=== PATIENT | female | born 2000 | race Caucasian/White ===

== ENCOUNTER 2024-08-30 10:23 | Outpatient (RCR) | payer OTHER, SELFPAY ==
[2024-08-30 11:47] LABS: Basophils Percent Auto 0.2 % (0.2-2.0); Eosinophils Absolute Auto 0.1 10^3/uL (0.0-0.7); Eosinophils Percent Auto 0.6 % (0.9-7.0); Hematocrit 35.5 % (36.0-48.0); Hemoglobin 12.1 g/dL (12.0-16.0); Immature Granulocytes Abs Auto 0.09 10^3/uL (0.00-0.03); Lymphocytes Absolute Auto 1.1 10^3/uL (1.2-3.8); Lymphocytes Percent Auto 12.2 % (20.5-60.0); Mean Corpuscular HGB Conc 34.1 g/dL (29.9-35.2); Mean Corpuscular Hemoglobin 28.2 pg (26.7-34.0); Mean Corpuscular Volume 82.8 fL (81.0-99.0); Mean Platelet Volume 9.8 fL (9.5-13.5); Monocytes Absolute Auto 0.5 10^3/uL (0.3-0.8); Monocytes Percent Auto 5.4 % (1.7-12.0); Neutrophils Absolute Auto 7.1 10^3/uL (1.4-6.5); Neutrophils Percent Auto 80.6 % (43.0-75.0); Platelet Count 292 10^3/uL (150-450); Red Blood Count 4.29 10^6/uL (4.20-5.40); Red Cell Distribution Width 13.2 % (11.0-15.0); White Blood Count 8.9 10^3/uL (4.0-11.0)
[2024-08-30 11:50] VITALS: BP 143/78; PULSE 95; TEMP 36.5; O2SAT 98
[2024-08-30] MEDS: RHO(D) IMMUNE GLOBULIN 1,500 UNIT SYRINGE 1500 UNIT IM (12:14)
[2024-08-30 12:44] LABS: Glucose 1 Hour 129 mg/dL (<130)
[2024-08-31 05:08] LABS: HCV Ab Non Reactive (Non Reactive)
== END 2024-09-07 09:07 | disposition home or self-care (01) ==
LOC: INF 10:23
PROVIDERS: PCP Obstetrics & Gynecology; Visit Provider Obstetrics & Gynecology
DX: O26.893 Other specified pregnancy related conditions, third trimester (principal); Z67.91 Unspecified blood type, Rh negative; Z3A.00 Weeks of gestation of pregnancy not specified
CPT/HCPCS: 36415; 82950; 85025; 86803; 86850; 86900; 86901; 96372; J2791

== ENCOUNTER 2024-10-02 08:34 | Outpatient (OUT) | payer OTHER, SELFPAY ==
--- NOTE | 2024-10-02 08:35 | US_ITS ---
[address] [address] Patient Name: ARLINE MONSIVAIS MRN: [id number] date: 2000 Sex: F Assigned Patient Location: [facility] Current Patient Location: [facility] Accession/Order Number: [id number] Exam Date: 10/02/2024 08:40 Report Date: 10/02/2024 09:33 At the request of: FLORA PERDOMO Procedure: US OB growth EXAMINATION: US OB growth HISTORY: Excessive growth O36.60X0 COMPARISON: No relevant comparison available. FINDINGS: Heart Rate: 129 bpm Amniotic Fluid Volume: 16.0 cm, largest fluid pocket 4.4 cm Number: 1 Position: Cephalic presentation, longitudinal lie BIOMETRY: BPD: 8.28 cm; 33 weeks 2 days; 56.90 % HC: 29.66 cm; 32 weeks 6 days; 14.10 % AC: 29.11 cm; 33 weeks 1 day; 58.40 % FL: 6.37 cm; 32 weeks 6 days; 39.60 % EFW: 2121.16 g; 46.10 %, 4 lbs. 10 oz. FL/AC: 21.88 FL/BPD: 76.93 HC/AC: 1.02 GESTATIONAL AGE: Age by EDC: 32 weeks 6 days LASHAE by EDC: 2024-11-21 Age by US: 33 weeks 0 days LASHAE by US: 2024-11-20 US/US OB growth IMPRESSION: Normal interval growth Electronically authenticated by: ALEX KAUFFMAN Date: 10/02/2024 09:33
--- OUTSIDE RECORDS SUMMARY | 2024-10-02 08:52 | XMS_ITS | CCD ---
Author Organization [facility] Care Team Providers Care Management Trainee Marketing Name Role Phone Kang Alfaro MD Primary Care Provider [phone] Kang Alfaro MD Unavailable UNALLOCATED, NOMS PROVIDER Referring Unava ilable CARLA PNENINGTON Attending Unavailable CARLA PENNINGTON P Referring Unavailable ADITI PENOLA P Referring Unavailable TERRENCE PENNINGTONOLA P Attending Unavailable TERRENCE PENNINGTONOLA P Referring Unavailable FLORA MERCADO Attending Unavailable ROGELIOFLORA DAVALOS Attending Unavailable Medications Current Medications Medication Drug Class(es) Dates Sig (Normalized) Sig (Original) MV-Min-Fe Fum-FA-DHA ( 1 PO) (2 sources) MV-Min- Fe Fum-FA-DHA ( 1 PO) Take 1 tablet by mouth Daily Active Problems Problem Classification Problem Date Documented Da te Episodic/Chronic Other complications of (2 sources) Excessive growth affecting management of mother; Translations: [Maternal care for excessive growth, unspecified trimester, not applicable or unspecified] 09-11-2024 Episodic Other and delivery including normal (6 sources) Second trimester ; Translations: [Encounter for supervision of normal , unspecified, second trimester] Onset: 09-11-2024 08-07-2024 Episodic Other screening for suspected conditions (not mental disorders or infectious disease) (1 source) Patient encounter status; Translations: [Encounter for screening for diabetes mellitus] 08-07-2024 Episodic Residual codes; unclassified (1 source) Gestation period, 24 weeks; Translations: [24 weeks gestation of ] 08-07-2024 Episodic Residual codes; unclassified (4 sources) Gestation period, 29 weeks; Translations: [29 weeks gestation of ] Onset: 09-11-2024 09-11-2024 Episodic Unclassified (6 sources) OB Reminders Onset: 04-06-2024 04-06-2024 Results Test Name Value Interpretation Reference Range Facility Urinalysis macro (dipstick) panel (U)on 09-11-2024 Bilirubin, UA Negative Negative - 4(70) +++ mg/dL [facility] Blood, UA Negative Negative - 50 Cameron/mcL [facility] Clarity, UA Clear [facility] re Color, UA Yellow [facility] e Glucose, UA Negative Negative - 1999(110) ++++ mg/dL [facility] Interpretation and review of laboratory results Normal [facility] re Ketones, UA Negative Negative - 160(16) ++++ mg/dL [facility] Leukocytes, UA Negative Negative - 500+++ Cynthia/mcL [facility] Nitrite, UA Negative Negative - Positive [facility] pH, UA 7 5 - 9 [facility] Protein, UA Negative Negative - 1999(20) ++++ mg/dL [facility] Spec Grav, UA 1.02 1 - 1.03 [facility] Urobilinogen, UA 0.2 0.2 - 12 mg/dL [facility] e HCV ANTIBODY RFX TO QUANT PC Hieu 08-31-2024 HCV AB Non-Reactive Non Reactive [facility] hcare INTERPRETATION: Comment . [facility] thcare Comment on above: Not infected with HC V unless early or acute infection is suspected (which may be delayed in an immunocompromised individual), or other evidence exists to indicate HCV infection. Performed at: - Lab[address] [id number] Physical Education Department Chair: Tank Ureña PhD, Phone: [phone] [facility] e ALL CBC WITH AUTO DIFFon BASOPHILS ABSOLUTE AUTO 0 [facility] Basophils/100 WBC (Bld) 0.2 % 0.2 - 2.0 % [facility] Eosinophils/100 WBC (Bld) 0.6 % Low 0.9 - 7.0 % [facility] Erythrocyte distribution width (RBC) [Ratio] 13.2 % 11.0 - 15.0 % [facility] Hematocrit (Bld) [Volume fraction] 35.5 % Low 36.0 - 48.0 % [facility] e Hemoglobin (Bld) [Mass/Vol] 12.1 g/dL 12.0 - 16.0 g/dL [facility] IMMATURE GRANULOCYTES ABS AUTO 0.09 High [facility] Immature granulocytes/100 WBC (Bld) 1 % High 0.0 - 0.5 % [facility] Interpretation and review of laboratory results Abnormal [facility] re LYMPHOCYTES ABSOLUTE AUTO 1.1 Low [facility] Lymphocytes/100 WBC (Bld) 12.2 % Low 20.5 - 60.0 % [facility] MCH (RBC) [Entitic mass] 28.2 pg 26.7 - 34.0 pg [facility] MCHC (RBC) [Mass/Vol] 34.1 g/dL 29.9 - 35.2 g/dL [facility] MCV (RBC) [Entitic vol] 82.8 fL 81.0 - 99.0 fL [facility] MONOCYTES ABSOLUTE AUTO 0.5 [facility] Monocytes/100 WBC (Bld) 5.4 % 1.7 - 12.0 % [facility] NEUTROPHILS ABSOLUTE AUTO 7.1 High [facility] Neutrophils/100 WBC (Bld) 80.6 % High 43.0 - 75.0 % [facility] Platelet mean volume (Bld) [Entitic vol] 9.8 fL 9.5 - 13.5 fL [facility] TBH EO # 0.1 [facility] TB PLT 292 [facility] e TB RBC 4.29 [facility] TBH WBC 8.9 [facility] e GLUCOSE 1 HOURon 08-30-2024 Glucose [Mass/Vol] 129 mg/dL NINF - 13 0 mg/dL [facility] Urinalysis macro (dipstick) panel (U)on 08-07-2024 Bilirubin, UA Negative Negative - 4(70) +++ mg/dL [facility] Blood, UA Negative Negative - 50 Cameron/mcL [facility] Clarity, UA Clear [facility], UA Yellow [facility] Glucose, UA Negative Negative - 2000(110) ++++ mg/dL [facility] Interpretation and review of laboratory results Normal [facility] re Ketones, UA Negative Negative - 160(16) ++++ mg/dL [facility] Leukocytes, UA Negative Negative - 500+++ Cynthia/mcL [facility] Nitrite, UA Negative Negative - Positive [facility] pH, UA 7 5 - 9 [facility] Protein, UA Negative Negative - 1999(20) ++++ mg/dL [facility] Spec Grav, UA 1.015 1 - 1.[address] [facility] care Urobilinogen, UA 0.2 0.2 - 12 mg/dL [facility] Coding Summary.on 03-07-2020 Coding Summary. CODING DATE: 03/07/2020 FINAL [facility] STATUS: Home (Routine DC) PAYOR: Medicaid EAPG DESCRIPTION 0471 PLAIN FILM 0496 MINOR PHARMACOTHERAPY ADMIT DX: REASON FOR VISIT DX: S91.115A Laceration without foreign body of left lesser toe(s) without damage to nail, initial encounter FINAL DX: PRINCIPAL: S91.115A Laceration without foreign body of left lesser toe(s) without damage to nail, initial encounter SECONDARY: W25.XXXA Contact with sharp glass, initial encounter PYMT PROC EAPG STAT DESCRIPTION DOCTOR NAME DATE NOTE: The code number assigned matches the documented diagnosis and / or procedure in the patient's chart. However, the narrative phrase printed from the coding software may appear abbreviated, or result in slightly different terminology. Coded By: Cheryl Glynn Date Saved: 03/07/2020 08:16 am [facility] Consent for Treatmenton 02-16 Consent for Treatment [id number] 0CD:127 Normal [facility] Discharge Instructionson Discharge Instructions [id number]:127 Normal [facility] ED Clinical Summaryon 2019 ED Clinical Summary [address] [address] ED Clinical Summary Person Information Name: ARLINE VASQUEZ [place] Age: 19 Years : 2000 Sex: Female Language: Singaporean PCP: Hailey CAR CNP Marital Status: Single Phone: [phone] Visit Id: Visit Reason: Foot laceration; FOOT LACERATION Speciality: Acuity: 4 Enc Type: Emergency Med Service: Emergency Arrival: 03/06/2020 11:49:56 Discharge: 03/06/2020 13:34:35 LOS: 000 01:45 Checkin: 03/06/2020 11:49:56 Checkout: 03/06/2020 13:34:35 Dispo Type: Home (Routine DC) EVENTS: Event Name Event Status Request Date/Time Start Date/Time Complete Date/Time Arrive Complete 03/06/2020 11:49:56 03/06/2020 11:49:56 03/06/2020 11:49:56 Document Home Meds Request 03/06/2020 11:49:56 Triage Complete 03/06/2020 11:49:56 03/06/2020 11:57:45 03/06/2020 11:57:45 Patient Care Request 03/06/2020 11:56:56 Bed Assign Complete 03/06/2020 11:59:12 03/06/2020 11:59:12 03/06/2020 11:59:12 Dr Exam Complete 03/06/2020 11:59:12 03/06/2020 12:00:33 03/06/2020 12:00:33 RN Exam Complete 03/06/2020 11:59:12 03/06/2020 12:01:26 03/06/2020 12:01:26 Registration Complete 03/06/2020 12:00:33 03/06/2020 12:22:28 03/06/2020 12:22:28 Dr Exam Complete 03/06/2020 12:00:41 03/06/2020 12:00:41 03/06/2020 12:00:41 X-Ray Complete 03/06/2020 12:05:47 03/06/2020 12:52:30 03/06/2020 13:24:09 Meds Admin Complete 03/06/2020 12:06:36 03/06/2020 13:32:08 Reg Complete Request 03/06/2020 12:22:28 Reg Bed Request Complete 03/06/2020 12:22:28 03/06/2020 12:22:28 03/06/2020 12:22:28 Meds Admin Cancel 03/06/2020 12:27:24 03/06/2020 12:29:43 Wet Read Request 03/06/2020 13:24:09 Discharge Complete 03/06/2020 13:26:39 03/06/2020 13:34:43 03/06/2020 13:34:43 Transfer Complete 03/06/2020 13:34:43 03/06/2020 13:34:43 03/06/2020 13:34:43 ADDRESS: [address] [place] [id number] PHYS DOC NOTES: MEDICAL INFORMATION: Prescriptions Given: PATIENT EDUCATION INFORMATION: Instructions: Laceration Care, Adult Follow up: With: Address: When: Hailey CAR [address] [place] [address] Business (1) In 3 days 03/09/2020 Comments: 10 days for suture removal DIAGNOSIS: Laceration of left foot Normal [facility] ED Note-Physicianon 03-06-20 ED Note-Physician Basic Information Time Seen: Dannie Colin PA-C 03/06/2020 12:00 Chief Complaint pt. presents to the ed with c/o left forth toe metatarsal that happened around 11 am. Pt.'s last tetanus was last year. History of Present Illness 19-year-old female presents to the emergency room for evaluation of a left fourth toe laceration. She stepped on a broken plate with bare feet prior to coming in. She states it started bleeding and he only. She is up-to-date with tetanus she states in the last 5 years. She has no other concerns at today's visit. Review of Systems All Organ systems are reviewed. Pertinent positive and negative findings as mentioned in the HPI Physical Exam Vitals & Measurements T: 36.9 ?C (Oral) HR: 86(Peripheral) RR: 18 BP: 156/91 SpO2: 98% HT: 165 cm WT: 82 kg BMI: 30.12 Nurses note and vital signs reviewed and patient is not hypoxic. General: The patient appears well and in no apparent distress. Patient is resting comfortably on cart. Skin: Warm, dry, no pallor noted. There is no rash noted. There is a 1.2 cm laceration to the distal end of the left fourth toe. Minimal bleeding. No visible signs of foreign body. No damage to the nail. Head: Normocephalic, atraumatic Eye: Normal conjunctiva Ears, Nose, Mouth, and Throat: oral mucosa is moist Cardiovascular: Normal peripheral perfusion Respiratory: Patient is in no distress, no accessory muscle use, Musculoskeletal: Patient has normal sensation and full range of motion of the toes of the left foot including the one that is lacerated. Please see the skin portion above Neurological: A&O x4, normal speech Psychiatric: Cooperative Procedure Laceration repair: Done under sterile conditions. The use of Shur-Clens prep the area. Local injection with lidocaine 1% was used, approximately 2.5 cc. The wound was irrigated copiously with normal saline. The wound was explored there was no evidence of foreign material. The laceration was approximated with 4-0 nylon. 2 simple interrupted sutures were placed. Patient tolerated the procedure well. The patient was neurovascularly intact post. the patient had bacitracin applied to the laceration and a dry sterile dressing was place. The patient will need to follow-up in the next 7-10 days for removal. Medical Decision Making X-ray was performed to make sure there is no retained foreign body. No radiopaque foreign bodies noted or signs of fracture. Assessment/Plan Laceration of left foot (S91.312A: Laceration without foreign body, left foot, initial encounter) Orders: lidocaine, 10 mg, 1 mL, Injection, SubCutaneous, Once, Stop date 03/06/20 12:06:00 EDT, STAT, Start date 03/06/20 12:06:00 EDT XR Foot 3+ Views Left Medications Administered Given lidocaine 1% Injection 20 mL, 10 mg, SubCutaneous Disposition Plan Patient Discharge Condition Stable Discharge Disposition Discharged home Discharge Prescription List Prescriptions No active prescription medications Follow-up With When Contact Information Hailey CAR In 3 days 03/09/2020 EDT [address] [place] [address]- Business (1) Additional Instructions: 10 days for suture removal Patient Education Laceration Care, Adult Attestation The patient's care was supervised by Dr. Hill including history, physical, medical decision making, and disposition. Teaching-Supervisory Addendum-Brief I participated in the following activities of this patients care: the medical history. I personally performed: supervision of the patient's care, the medical history, the physical exam, the medical decision making. The case was discussed with: the physician legal assistant, Dannie Colin PA-C. Procedures: I directly supervised the entire procedure. Evaluation and management service: I agree with the evaluation and management decisions made in this patient's care. Results interpretation: I agree with the study interpretation in this patient's care, I agree with the documentation of the study interpretation. may be present. Problem List/Past Medical History Ongoing Hypertriglyceridemia Obesity peds (BMI >=95 percentile) Historical Denies Procedure/Surgical History Denies. Medications Inpatient No active inpatient medications Home No active home medications Allergies No Known Allergies Social History Alcohol - Denies Alcohol Use, 09/22/2010 Substance Abuse - Denies Substance Abuse, 09/22/2010 Tobacco - Denies Tobacco Use, 09/22/2010 Never (less than 100 in lifetime) Tobacco Use:., 05/24/2019 Family History DM (diabetes mellitus): Grandparent. : Father. Lab Results No qualifying data available. Diagnostic Results XR Foot 3+ Views Left 03/06/20 14:05:51 IMPRESSION: NO FRACTURE OR DISLOCATION. NO EVIDENCE OF RADIOPAQUE FOREIGN BODY. CLINICAL HISTORY: Pain, Traumatic, foreign body, laceration left fourth and fifth toes. Stepped on glass. COMPARISON: None available. FINDINGS: AP, lateral and oblique views of the left foot demonstrate no evidence of a fracture, dislocation, bone or joint abnormality. No evidence radiopaque foreign body. There is fusion fifth DIP joint, normal variant. Signed By: Raheem BOSE, Rhianna Ibarra [facility] Comment on above: Result Comment: Elec tronically Signed By: Dannie Colin PA-C\.br\Date and Time Signed: 03/06/20 14:12 EDT\.br\Electronically Co-Signed By: Emilie Hill DO\.br\Date and Time Co-Signed: 03/06/20 16:28 EDT ED Patient Education Noteon 03-06-2020 ED Patient Education Note Family Medicine Laceration Care, Adult A laceration is a cut or lesion that goes through all layers of the skin and into the tissue just beneath the skin. TREATMENT Some lacerations may not require closure. Some lacerations may not be able to be closed due to an increased risk of infection. It is important to see your caregiver as soon as possible after an injury to minimize the risk of infection and maximize the opportunity for successful closure. If closure is appropriate, pain medicines may be given, if needed. The wound will be cleaned to help prevent infection. Your caregiver will use stitches (sutures), daniel, wound glue (adhesive), or skin adhesive strips to repair the laceration. These tools bring the skin edges together to allow for faster healing and a better cosmetic outcome. However, all wounds will heal with a scar. Once the wound has healed, scarring can be minimized by covering the wound with sunscreen during the day for 1 full year. HOME CARE INSTRUCTIONS For sutures or daniel: ? Keep the wound clean and dry. ? If you were given a bandage (dressing), you should change it at least once a day. Also, change the dressing if it becomes wet or dirty, or as directed by your caregiver. ? Wash the wound with soap and water 2 times a day. Rinse the wound off with water to remove all soap. Pat the wound dry with a clean towel. ? After cleaning, apply a thin layer of the antibiotic ointment as recommended by your caregiver. This will help prevent infection and keep the dressing from sticking. ? You may shower as usual after the first 24 hours. Do not soak the wound in water until the sutures are removed. ? Only take jpkq-[id number]-ufcglwp or prescription medicines for pain, discomfort, or fever as directed by your caregiver. ? Get your sutures or daniel removed as directed by your caregiver. For skin adhesive strips: ? Keep the wound clean and dry. ? Do not get the skin adhesive strips wet. You may bathe carefully, using caution to keep the wound dry. ? If the wound gets wet, pat it dry with a clean towel. ? Skin adhesive strips will fall off on their own. You may trim the strips as the wound heals. Do not remove skin adhesive strips that are still stuck to the wound. They will fall off in time. For wound adhesive: ? You may briefly wet your wound in the shower or bath. Do not soak or scrub the wound. Do not swim. Avoid periods of heavy perspiration until the skin adhesive has fallen off on its own. After showering or bathing, gently pat the wound dry with a clean towel. ? Do not apply liquid medicine, cream medicine, or ointment medicine to your wound while the skin adhesive is in place. This may loosen the film before your wound is healed. ? If a dressing is placed over the wound, be careful not to apply tape directly over the skin adhesive. This may cause the adhesive to be pulled off before the wound is healed. ? Avoid prolonged exposure to sunlight or tanning lamps while the skin adhesive is in place. Exposure to ultraviolet light in the first year will darken the scar. ? The skin adhesive will usually remain in place for 5 to 10 days, then naturally fall off the skin. Do not pick at the adhesive film. You may need a tetanus shot if: ? You cannot remember when you had your last tetanus shot. ? You have never had a tetanus shot. If you get a tetanus shot, your arm may swell, get red, and feel warm to the touch. This is common and not a problem. If you need a tetanus shot and you choose not to have one, there is a rare chance of getting tetanus. Sickness from tetanus can be serious. SEEK MEDICAL CARE IF: ? You have redness, swelling, or increasing pain in the wound. ? You see a red line that goes away from the wound. ? You have yellowish-white fluid (pus) coming from the wound. ? You have a fever. ? You notice a bad smell coming from the wound or dressing. ? Your wound breaks open before or after sutures have been removed. ? You notice something coming out of the wound such as wood or glass. ? Your wound is on your hand or foot and you cannot move a finger or toe. SEEK IMMEDIATE MEDICAL CARE IF: ? Your pain is not controlled with prescribed medicine. ? You have severe swelling around the wound causing pain and numbness or a change in color in your arm, hand, leg, or foot. ? Your wound splits open and starts bleeding. ? You have worsening numbness, weakness, or loss of function of any joint around or beyond the wound. ? You develop painful lumps near the wound or on the skin anywhere on your body. MAKE SURE YOU: ? Understand these instructions. ? Will watch your condition. ? Will get help right away if you are not doing well or get worse. Document Released: 10/04/2006 Document Revised: 12/26/2012 Document Reviewed: 03/29/2012 ExitCare? Patient Information ?2015 [employer]. This information is not intended to replace advice given to you by your health care provider. Make sure you discuss any questions you have with your health care provider. Normal [facility] ED Patient Summaryon 020 ED Patient Summary [address], [place] [address] Patient Discharge Instructions Person Information Name: ARLINE VASQUEZ Age: 19 Years Arrival Date: 03/06/2020 11:49:56 Discharge Diagnosis: Laceration of left foot Primary Care Physician: Hailey CAR CNP Provider Information Primary Provider: Emilie Hill DO Advanced Scratch Polisher:Dannie Colin PA-C The exam and treatment you received in the Emergency Department were for an urgent problem and are not intended as complete care. It is important that you follow up with a doctor, nurse practitioner, or physician?s legal assistant for ongoing care. If your symptoms become worse or you do not improve as expected and you are unable to reach your usual health care provider, you should return to the Emergency Department. We are available 24 hours a day. ARLINE VASQUEZ has been given the following list of patient education materials, prescriptions and follow-up instructions: Follow-up Instructions: With: Address: When: Hailey REEVESRICK [address] [place], [place] [id number] Business (1) In 3 days 03/09/2020 Comments: 10 days for suture removal In the event that this physician does not participate in your insurance network, please consult with your insurance company to find a nearby participating provider. Patient Education Materials: Laceration Care, Adult A MESSAGE TO ALL PATIENTS REGARDING OPIOIDS PRESCRIPTION OPIOIDS: WHAT YOU NEED TO KNOW Prescription opioids can be used to help relieve htatyqlg-oa-fyipil pain and are often prescribed following a surgery or injury, or for certain health conditions. These medications can be an important part of the treatment but also come with serious risks. It is important to work with your healthcare provider to make sure you are getting the safest, most effective care. WHAT ARE THE RISKS AND SIDE EFFECTS OF OPIOID USE? Prescription opioids carry serious risks of addiction and overdose, especially with prolonged use. An opioid overdose, often marked by slowed breathing, can cause sudden . The use of prescription opioids can have a number of side effects as well, even when taken as directed: ? Tolerance?meaning you might need to take more of the medication for the same pain relief ? Physical dependence?meaning you have symptoms of withdrawal when a medication is stopped ? Increased sensitivity to pain ? Constipation ? Nausea, vomiting, and dry mouth ? Sleepiness and dizziness ? Confusion ? Depression ? Low levels of testosterone that can result in lower sex drive, energy, and strength ? Itching and sweating RISKS ARE GREATER WITH: ? History of drug misuse, substance use disorder, or overdose ? Mental health conditions (such as depression or anxiety) ? Sleep apnea ? Older age (65 years and older) ? Avoid alcohol while taking prescription opioids. Also, unless specifically advised by your health care provider, medications to avoid include: ? Benzodiazepines (such as Xanax or Valium) ? Muscle relaxants (such as Soma or Flexeril) ? Hypnotics (such as Ambien or Lunesta) ? Other prescription opioids KNOW YOUR OPTIONS Talk to your health care provider about ways to manage your pain that don?t involve prescription opioids. Some of these options may actually work better and have fewer risks and side effects. Options may include: ? Pain relievers such as acetaminophen, ibuprofen, and naproxen ? Some medication that are also used for depression or seizures ? Physical therapy and exercise ? Cognitive behavioral therapy, a psychological, goal-directed approach, in which patients learn how to modify physical, behavioral, and emotional triggers of pain and stress. IF YOU ARE PRESCRIBED OPIOIDS FOR PAIN: ? Never take opioids in greater amounts or more often than prescribed. ? Follow up with your primary health care provider. o Work together to create a plan on how to manage your pain. o Talk about ways to help manage your pain that don?t involve prescription opioids. o Talk about any and all concerns and side effects. ? Help prevent misuse and abuse o Never sell or share prescription opioids. o Never use another person?s prescription opioids. ? Store prescription opioids in a secure place and out of reach of others (this may include visitors, children, friends, and family). ? Safely dispose of unused prescription opioids: Find your community drug take-back program or your pharmacy mail-back program, or flush them down the toilet, following guidance from the Food and Drug Administration (www.fda.gov/Drugs/Res ourcesForYou). ? Visit www.cdc.gov/drugoverdo se to learn about the risks of opioids abuse and overdose. ? If you believe you may be struggling with addiction, tell your health palliative care specialist and ask for guidance or call SAMHSA?S National Helpline at 9-762-581-HELP. v Source: [place] Department of Health and Human Services/Center for Disease Control & Prevention [facility] Medications Given: Medication Dose Route lidocaine 10.00 mg SubCutaneous Left Foot Medication Information: Comment: Pharmacy Information: Thank you for choosing [facility] Patient Education Materials: Laceration Care, Adult A laceration is a cut or lesion that goes through all layers of the skin and into the tissue just beneath the skin. TREATMENT Some lacerations may not require closure. Some lacerations may not be able to be closed due to an increased risk of infection. It is important to see your caregiver as soon as possible after an injury to minimize the risk of infection and maximize the opportunity for successful closure. If closure is appropriate, pain medicines may be given, if needed. The wound will be cleaned to help prevent infection. Your caregiver will use stitches (sutures), daniel, wound glue (adhesive), or skin adhesive strips to repair the laceration. These tools bring the skin edges together to allow for faster healing and a better cosmetic outcome. However, all wounds will heal with a scar. Once the wound has healed, scarring can be minimized by covering the wound with sunscreen during the day for 1 full year. HOME CARE INSTRUCTIONS For sutures or daniel: ? Keep the wound clean and dry. ? If you were given a bandage (dressing), you should change it at least once a day. Also, change the dressing if it becomes wet or dirty, or as directed by your caregiver. ? Wash the wound with soap and water 2 times a day. Rinse the wound off with water to remove all soap. Pat the wound dry with a clean towel. ? After cleaning, apply a thin layer of the antibiotic ointment as recommended by your caregiver. This will help prevent infection and keep the dressing from sticking. ? You may shower as usual after the first 24 hours. Do not soak the wound in water until the sutures are removed. ? Only take hjzq-ljg-jwcnhtf or prescription medicines for pain, discomfort, or fever as directed by your caregiver. ? Get your sutures or daniel removed as directed by your caregiver. For skin adhesive strips: ? Keep the wound clean and dry. ? Do not get the skin adhesive strips wet. You may bathe carefully, using caution to keep the wound dry. ? If the wound gets wet, pat it dry with a clean towel. ? Skin adhesive strips will fall off on their own. You may trim the strips as the wound heals. Do not remove skin adhesive strips that are still stuck to the wound. They will fall off in time. For wound adhesive: ? You may briefly wet your wound in the shower or bath. Do not soak or scrub the wound. Do not swim. Avoid periods of heavy perspiration until the skin adhesive has fallen off on its own. After showering or bathing, gently pat the wound dry with a clean towel. ? Do not apply liquid medicine, cream medicine, or ointment medicine to your wound while the skin adhesive is in place. This may loosen the film before your wound is healed. ? If a dressing is placed over the wound, be careful not to apply tape directly over the skin adhesive. This may cause the adhesive to be pulled off before the wound is healed. ? Avoid prolonged exposure to sunlight or tanning lamps while the skin adhesive is in place. Exposure to ultraviolet light in the first year will darken the scar. ? The skin adhesive will usually remain in place for 5 to 10 days, then naturally fall off the skin. Do not pick at the adhesive film. You may need a tetanus shot if: ? You cannot remember when you had your last tetanus shot. ? You have never had a tetanus shot. If you get a tetanus shot, your arm may swell, get red, and feel warm to the touch. This is common and not a problem. If you need a tetanus shot and you choose not to have one, there is a rare chance of getting tetanus. Sickness from tetanus can be serious. SEEK MEDICAL CARE IF: ? You have redness, swelling, or increasing pain in the wound. ? You see a red line that goes away from the wound. ? You have yellowish-white fluid (pus) coming from the wound. ? You have a fever. ? You notice a bad smell coming from the wound or dressing. ? Your wound breaks open before or after sutures have been removed. ? You notice something coming out of the wound such as wood or glass. ? Your wound is on your hand or foot and you cannot move a finger or toe. SEEK IMMEDIATE MEDICAL CARE IF: ? Your pain is not controlled with prescribed medicine. ? You have severe swelling around the wound causing pain and numbness or a change in color in your arm, hand, leg, or foot. ? Your wound splits open and starts bleeding. ? You have worsening numbness, weakness, or loss of function of any joint around or beyond the wound. ? You develop painful lumps near the wound or on the skin anywhere on your body. MAKE SURE YOU: ? Understand these instructions. ? Will watch your condition. ? Will get help right away if you are not doing well or get worse. Document Released: 10/04/2006 Document Revised: 12/26/2012 Document Reviewed: 03/29/2012 ExitCare? Patient Information ?2015 User[employer] Live [employer]. This information is not intended to replace advice given to you by your health care provider. Make sure you discuss any questions you have with your health care provider. LOI Mae CYDNEY C , have received the following patient education materials/instructions and have verbalized understanding: Patient Education Materials: Laceration Care, Adult Follow-up Instructions: With: Address: When: [address] [place] [address] Business (1) In 3 days 03/09/2020 Comments: 10 days for suture removal Patient Signature Date Clinician/Nurse Signature ___ Date 03/06/2020 13:34:45 Normal [facility] Prescriptions/Work Noteson 0 03-06-2020 Prescriptions/Work Notes [id number]:127 Normal [facility] XR Foot 3+ Views Lefton 02-16 XR Foot 3+ Views Left Exam Date/Time: 03/06/2020 13:24 EDT Reason for Exam: foreign body;Pain, Traumatic Report IMPRESSION: NO FRACTURE OR DISLOCATION. NO EVIDENCE OF RADIOPAQUE FOREIGN BODY. CLINICAL HISTORY: Pain, Traumatic, foreign body, laceration left fourth and fifth toes. Stepped on glass. COMPARISON: None available. FINDINGS: AP, lateral and oblique views of the left foot demonstrate no evidence of a fracture, dislocation, bone or joint abnormality. No evidence radiopaque foreign body. There is fusion fifth DIP joint, normal variant. FINAL REPORT Dictated: 03/06/2020 2:02 pm Rhianna Maciel MD Signed (Electronic Signature): 03/06/2020 2:02 pm Signed by: Rhianna Maciel MD Transcribed by: RENETTA Technologist: JOLANTA Normal [facility] Coding Summary.on 06-03-2019 Coding Summary. CODING DATE: 06/03/2019 FINAL [facility] STATUS: Home (Routine DC) PAYOR: Medicaid EAPG DESCRIPTION 0457 VENIPUNCTURE 0403 ORGAN OR DISEASE ORIENTED PANELS ADMIT DX: REASON FOR VISIT DX: Z13.1 Encounter for screening for diabetes mellitus FINAL DX: PRINCIPAL: Z13.1 Encounter for screening for diabetes mellitus SECONDARY: Z13.220 Encounter for screening for lipoid disorders PYMT PROC EAPG STAT DESCRIPTION DOCTOR NAME DATE NOTE: The code number assigned matches the documented diagnosis and / or procedure in the patient's chart. However, the narrative phrase printed from the coding software may appear abbreviated, or result in slightly different terminology. Coded By: Gracie Bourne Date Saved: 06/03/2019 10:40 am Normal [facility] BMPon 05-31-2019 Anion gap [Moles/Vol] 16 mmol/L Normal 04-02 [facility] Comment on above: Performed By: #### 2 [id number], [id number] #### [facility] [address] [place] [address] Calcium [Mass/Vol] 9.6 mg/dL Normal 8.9-11.1 [facility] Comment on above: Performed By: #### 2 [id number], [id number] #### [facility] [address] [place] [address] Chloride [Moles/Vol] 104 mmol/L Normal 101-111 [facility] Comment on above: Performed By: #### 2 [id number], [id number] #### [facility] [address] [place] [address] CO2 [Moles/Vol] 22 mmol/L Normal 21-31 [facility] Comment on above: Performed By: #### 2 [id number], [id number] #### [facility] [address] [place] [address] Creatinine [Mass/Vol] 0.7 mg/dL Normal 0.5-1.3 [facility] Comment on above: Performed By: #### 2 [id number], [id number] #### [facility] [address] [place] [address] Glucose [Mass/Vol] 92 mg/dL Normal 55-199 [facility] Comment on above: Result Comment: If t his glucose result represents a fasting glucose, interpretation should refer to the following reference range: 55-99 mg/dL Performed By: #### 2 [id number], [id number] #### [facility] [address] [place] [address] Potassium [Moles/Vol] 4.2 mmol/L Normal 3.5-5.3 [facility] Comment on above: Performed By: #### 2 [id number], [id number] #### [facility] [address] [place] [address] Sodium [Moles/Vol] 138 mmol/L Normal 135-145 [facility] Comment on above: Performed By: #### 2 [id number], [id number] #### [facility] [address] [place] [address] Urea nitrogen [Mass/Vol] 14 mg/dL Normal 5-21 [facility] Comment on above: Performed By: #### 2 [id number], [id number] #### [facility] [address] [place] [address] Urea nitrogen/Creatinine [Mass ratio] 20 No Units Normal 10-20 [facility] Comment on above: Performed By: #### 2 [id number], [id number] #### [facility] [address] [place] [address] Lipid Panelon 05-31-2019 Cholesterol in LDL [Mass/Vol] 127 mg/dL Normal <=129 [facility] Comment on above: Performed By: #### 2 [id number], [id number] #### [facility] [address] [place] [address] Cholesterol [Mass/Vol] 186 mg/dL Normal 120-200 [facility] Comment on above: Performed By: #### 2 [id number], [id number] #### [facility] [address] [place] [address] Cholesterol in HDL [Mass/Vol] 34 mg/dL [facility] Comment on above: Result Comment: HDL > or equal to 60 mg/dL: Low cardiovascular risk HDL < 40 mg/dL : High cardiovascular risk Performed By: #### 2 [id number], [id number] #### [facility] [address] [place] [address] Cholesterol in VLDL [Mass/Vol] 51 mg/dL High 7-40 [facility] Comment on above: Performed By: #### 2 [id number], [id number] #### [facility] [address] [place] [address] Triglyceride [Mass/Vol] 256 mg/dL High <=149 [facility] Comment on above: Performed By: #### 2 [id number], [id number] #### [facility] [address] [place] [address] Vital Signs Date Time Vital Sign Value Performing Clinician Jasiel berg 09-11-2024 09:32-0500 Body weight 101.61 kg [employer] Work Phone: [facility] 09-11-2024 09:32-0500 Diastolic blood pressure 60 mm[Hg] Flora Rogelio DO Work Phone: [facility] 09-11-2024 09:32-0500 Systolic blood pressure 100 mm[Hg] Flora Rogelio DO Work Phone: [facility] 08-07-2024 14:18-0400 Body weight 98.43 kg Flora Rogelio DO Work Phone: [facility] 08-07-2024 14:18-0400 Diastolic blood pressure 74 mm[Hg] Flora Rogelio DO Work Phone: [facility] 08-07-2024 14:18-0400 Systolic blood pressure 112 mm[Hg] Flora Rogelio DO Work Phone: [facility] Encounters Encounter Date Encounter Type Care Provider Facility Start: 09-11-2024 End: 09-11-2024 Bamboo flowsheet Flora Rogelio DO Work Phone: [facility] Start: 09-11-2024 End: 09-11-2024 Bamboo flowsheet Flora Rogelio DO Work Phone: [facility] Start: 09-11-2024 End: 09-11-2024 ambulatory FLORA ROGELIO Not Available Start: 09-11-2024 End: 09-11-2024 flow sheet Flora Rogelio DO Work Phone: [facility] Comment on above: 29 weeks gestation o f ; Third trimester ; Excessive growth affecting management of , antepartum, single or unspecified fetus Start: 08-30-2024 End: 08-30-2024 Clinisync Result Encounter Flora Rogelio DO Work Phone: [facility] External Department Unsolicited Start: 08-30-2024 End: 08-30-2024 Clinisync Result Encounter Flora Rogelio DO Work Phone: [facility] External Department Unsolicited Start: 08-07-2024 End: 08-07-2024 Bamboo flowsheet Flora Rogelio DO Work Phone: [facility] Start: 08-07-2024 End: 08-07-2024 Bamboo flowsheet Flora Rogelio DO Work Phone: [facility] Start: 08-07-2024 End: 08-07-2024 flow sheet Flora Rogelio DO Work Phone: [facility] Comment on above: Second trimester pre gnancy; Diabetes mellitus screening; , unspecified gestational age; 24 weeks gestation of Start: 08-07-2024 End: 08-07-2024 ambulatory FLORA ROGELIO Not Available Start: 06-23-2024 End: 06-23-2024 ambulatory [facility] Not Available Start: 06-01-2024 End: 06-01-2024 ambulatory PENOLA P PENNINGTON Not Available Start: 05-19-2024 End: 05-19-2024 ambulatory PENOLA P PENNINGTON Not Available Start: 04-27-2024 End: 04-27-2024 ambulatory PENOLA P PENNINGTON Not Available Start: 04-05-2024 End: 04-05-2024 ambulatory [facility] PROVIDER [facility]NA[facility] Not Available Procedures Date Procedure Procedure Detail Performing Clinician Start: 09-11-2024 Urnls dip stick/tabl et rgnt non-auto w/o micrscp Flora Rogelio DO Work Phone: Start: 08-30-2024 ALL CBC WITH AUTO DIFF Flora Rogelio DO Work Phone: Start: 08-30-2024 GLUCOSE 1 HOUR Flora Fa zio DO Work Phone: Start: 08-30-2024 HCV ANTIBODY RFX TO QUANT PCR Flora Rogelio DO Work Phone: Start: 08-07-2024 Urnls dip stick/tabl et rgnt non-auto w/o micrscp Flora Rogelio DO Work Phone: Plan of Treatment Date Care Activity Detail Author Start: 10-02-2024 End: 10-02-2024 Patient encounter procedure 10/02/2024 9:00 AM EST Routine [facility] [address] [place] [address] Flora Mercado, DO [address] [place] [address] [facility] Start: 10-02-2024 End: 10-02-2024 Professional / ancillary services management 10/02/2024 8:30 AM EST Ancillary Procedure [facility] [address] [facility] [place] [phone] [facility] Start: 09-11-2024 End: 09-11-2025 US for US OB SCAN FOR GROWTH Imaging Routine Excessive growth affecting management of , antepartum, single or unspecified fetus Expected: 09/11/2024 (Approximate), Expires: 09/11/2025 [facility] Work Phone: Comment on above: Expected: 09/11/2024 (Approximate), Expires: 09/11/2025 Start: 09-11-2024 End: 09-11-2024 Patient encounter procedure 09/11/2024 8:50 AM EST Routine [facility] [address] [place] [id number] Flora Mercado, DO [address] [place] [address] [facility] Start: 08-07-2024 End: 08-07-2025 CBC panel - Blood by Automated count CBC Lab Routine Diabetes mellitus screening Expected: 08/07/2024 (Approximate), Expires: 08/07/2025 [facility] Work Phone: Comment on above: Expected: 08/07/2024 (Approximate), Expires: 08/07/2025 Start: 08-07-2024 End: 08-07-2025 Measurement of glucose 1 hour after glucose challenge for glucose tolerance test Glucose tolerance, 1 hour Lab Routine Diabetes mellitus screening Expected: 08/07/2024 (Approximate), Expires: 08/07/2025 [facility] Comment on above: Expected: 08/07/2024 (Approximate), Expires: 08/07/2025 Start: 08-07-2024 End: 08-07-2024 Patient encounter procedure 08/07/2024 1:50 PM EDT Routine [facility] [address] [place] [phone] Flora Mercado DO [address] [place] [address] Arrived [facility] Comment on above: Arrived Start: 06-18-2024 Influenza vaccination Influenza Vacc ine (#1) [facility] Hepatitis C virus Ab [Presence] in Serum or Plasma by Immunoassay Hepatitis C antibody Lab Routine , unspecified gestational age Ordered: 08/07/2024 [facility] Comment on above: Ordered: 08/07/2024 Payers Date Payer Category Payer Private Health Insurance [employer] [id number] 2024 Unknown [id number] 2001 Unknown [id number] 2001 Unknown [id number] 2001 Unknown [id number] 2001 Unknown [id number] 2001 Unknown [id number] 2001 Unknown [id number] 2001 Unknown [id number] Social History Date Type Detail Facility Start: 04-05-2024 Tobacco smoking stat [facility] Never smoked tobacco [facility] Start: 04-05-2024 Tobacco use and exposure Smoke less tobacco non-user [facility] Start: 04-05-2024 End: 08-07-2024 Alcoholic beverage intake Ex-drinker (finding) [facility] Start: 04-05-2024 History of Social function [facility] Start: 04-05-2024 Tobacco use panel [facility] Start: 04-05-2024 Alcohol Comment Caffeine intake: Non e [facility] Start: 02-29-2024 [facility] Start: 2001 Sex assigned at Not on file [facility] Goals Date Patient Goal Desired Activity /State Personal health goal History of Present illness Narrative 09-11-2024 Allie Castrejon LPN - 09/11/2024 8:50 AM EST Note Date & Type Note Facility 09-11-2024 History of Presen t illness Narrative Reason for Appointment: Patient ID: Arline Vasquez is a 23 y.o. female who presents for Routine Visit Patient presents today for Return OB appointment. MEDICATIONS Current Outpatient Medications Medication Instructions MV-Min-Fe Fum-FA-DHA ( 1 PO) 1 tablet, Oral, Daily ALLERGIES No Known Allergies PROBLEMS Active Ambulatory Problems Diagnosis Date Noted 29 weeks gestation of 09/11/2024 Third trimester 09/11/2024 Resolved Ambulatory Problems Diagnosis Date Noted No Resolved Ambulatory Problems No Additional Past Medical History HISTORY PAST MEDICAL HISTORY SOCIAL HISTORY No past medical history on file. Social History Tobacco Use Smoking status: Never Smokeless tobacco: Never Vaping Use Vaping status: Never Used Substance Use Topics Alcohol use: Not Currently Comment: Caffeine intake: None Drug use: Never FAMILY HISTORY No family history on file. SURGICAL HISTORY Past Surgical History: Procedure Laterality Date TONSILLECTOMY REVIEW OF SYSTEMS Review of Systems: Review of Systems Constitutional: Negative. HENT: Negative. Eyes: Negative. Respiratory: Negative. Cardiovascular: Negative. Gastrointestinal: Negative. Genitourinary: Negative. Musculoskeletal: Negative. Skin: Negative. Neurological: Negative. All other systems reviewed and are negative. Hematological: Negative. Endocrine: Negative. Allergic/Immunologic: Negative. OBJECTIVE Objective: Physical Exam Constitutional: Appearance: Normal appearance. She is well-developed. Cardiovascular: Rate and Rhythm: Normal rate and regular rhythm. Pulmonary: Effort: Pulmonary effort is normal. Breath sounds: Normal breath sounds. Abdominal: General: Bowel sounds are normal. There is no distension. Palpations: Abdomen is soft. Tenderness: There is no abdominal tenderness. There is no guarding or rebound. Musculoskeletal: General: No swelling. Normal range of motion. Right lower leg: No edema. Left lower leg: No edema. Neurological: Mental Status: She is alert and oriented to person, place, and time. Skin: General: Skin is warm and dry. Psychiatric: Mood and Affect: Mood normal. Behavior: Behavior normal. Vitals and nursing note reviewed. Exam conducted with a bridge welder present. Vitals: Estimated body mass index is 34.81 kg/m as calculated from the following: Height as of 03/23/19: 5' 4 . Weight as of 03/23/19: 202 lb 12.8 oz. BP: 100/60 Patient's last menstrual period was 01/18/2024. ASSESSMENT & PLAN ICD-10-CM 1. 29 weeks gestation of Z3A.29 POCT urinalysis dipstick manually resulted 2. Third trimester Z34.93 POCT urinalysis dipstick manually resulted Return OB: Patient presents today for a routine obstetrics appointment. Patient is currently 29w6d . Patient states she is doing well but has complaints of being tired due to current . Patient has verbalizes frequent movement. labor precautions was discussed/given and patient was instructed to perform kick counts three times a day. Pt measuring ahead- given growth ultrasound. Orders Placed This Encounter Procedures POCT urinalysis dipstick manually resulted Follow Up: Patient is to return to office in 2 week for routine OB appointment. Documented by Allie Castrejon LPN on behalf of: Flora Mercado DO documented in this encounter [facility] History of Present illness Narrative 08-07-2024 Danielle Pineda, [employer] - 08/07/2024 1:50 PM EDT Note Date & Type Note Facility 08-07-2024 History of Presen t illness Narrative Reason for Appointment: Patient ID: Arline Vasquez is a 23 y.o. female who presents for Routine Visit Patient presents today for Return OB appointment. MEDICATIONS No current outpatient medications ALLERGIES No Known Allergies PROBLEMS Active Ambulatory Problems Diagnosis Date Noted No Active Ambulatory Problems Resolved Ambulatory Problems Diagnosis Date Noted No Resolved Ambulatory Problems No Additional Past Medical History HISTORY PAST MEDICAL HISTORY SOCIAL HISTORY No past medical history on file. Social History Tobacco Use Smoking status: Never Smokeless tobacco: Never Vaping Use Vaping status: Never Used Substance Use Topics Alcohol use: Not Currently Comment: Caffeine intake: None Drug use: Never FAMILY HISTORY No family history on file. SURGICAL HISTORY Past Surgical History: Procedure Laterality Date TONSILLECTOMY REVIEW OF SYSTEMS Review of Systems: Review of Systems All other systems reviewed and are negative. OBJECTIVE Objective: Physical Exam Constitutional: Appearance: Normal appearance. She is well-developed. Cardiovascular: Rate and Rhythm: Normal rate and regular rhythm. Pulmonary: Effort: Pulmonary effort is normal. Breath sounds: Normal breath sounds. Abdominal: General: Bowel sounds are normal. There is no distension. Palpations: Abdomen is soft. Tenderness: There is no abdominal tenderness. There is no guarding or rebound. Musculoskeletal: General: No swelling. Normal range of motion. Right lower leg: No edema. Left lower leg: No edema. Neurological: Mental Status: She is alert and oriented to person, place, and time. Skin: General: Skin is warm and dry. Psychiatric: Mood and Affect: Mood normal. Behavior: Behavior normal. Vitals and nursing note reviewed. Exam conducted with a bridge welder present. Vitals: Estimated body mass index is 34.81 kg/m as calculated from the following: Height as of 03/23/19: 5' 4 . Weight as of 03/23/19: 202 lb 12.8 oz. BP: 112/74 Patient's last menstrual period was 01/18/2024. ASSESSMENT & PLAN ICD-10-CM 1. Second trimester Z34.92 POCT urinalysis dipstick manually resulted 2. Diabetes mellitus screening Z13.1 CBC Glucose tolerance, 1 hour 3. , unspecified gestational age Z34.90 Hepatitis C antibody 4. 24 weeks gestation of Z3A.24 Patient presents today for transfer of care appointment from another OB. Discussed plan of care for remainder of and delivery. Patient is going to be due for Rhogam injection due at 28 weeks gestation. Order will be sent to [facility] to be pre-certed and scheduled. Patient to return to clinic in 4 weeks for routine OB care appointment. Patient declined genetic testing previously in the . Patient has complaints of round ligament pain. Documented by Daneille Pineda LPN on behalf of: Flora Mercado DO documented in this encounter [facility] Evaluation note Note Date & Type Note Facility Evaluation note Diagnosis Second trimester state, incidental Diabetes mellitus screening Screening for diabetes mellitus , unspecified gestational age 24 weeks gestation of documented in this encounter [facility] Evaluation note Note Date & Type Note Facility Evaluation note Diagnosis 29 weeks gestation of Third trimester state, incidental Excessive growth affecting management of , antepartum, single or unspecified fetus documented in this encounter [facility] Summary Purpose Family History No Family History Records FoundNo Family History Records Found Advance Directives No Advanced Directives Records FoundNo Advanced Directives Records Found Additional Source Comments INFORMATION SOURCE (unrecogn ized section and content) DATE CREATED AUTHOR 03/19/2020 [facility] DATE CREATED AUTHOR AUTHOR'S ORGANIZ ATION 09/13/2024 [facility] Care Teams (unrecognized sec tion and content) Management Trainee Marketing Relationship Specialty Start Date End Date Kang Alfaro MD [address] [place] [id number] PCP - General Family Medicine 02/23/23 Kang Alfaro MD [address] [place] [id number] PCP - [facility] 04/17/24 Management Trainee Marketing Relationship Specialty Start Date End Date Kang Alfaro MD [address] [place] [id number] PCP - General Family Medicine 02/23/23 Kang Alfaro MD [address] [place] [id number] PCP - [facility] 04/17/24 Management Trainee Marketing Relationship Specialty Start Date End Date Kang Alfaro MD [address] [place] [id number] PCP - General [facility] [place] 02/23/23 Management Trainee Marketing Relationship Specialty Start Date End Date Kang Alfaro MD [address] [place] [id number] PCP - General [facility] [place] 02/23/23 Management Trainee Marketing Relationship Specialty Start Date End Date Kang Alfaro MD [address] [place] [id number] PCP - General [facility] [place] 02/23/23 Reason for Visit (unrecogniz ed section and content) Reason Comments Routine Visit FOR RECORDS PERTAINING TO PATIENTS WHO ARE OR HAVE BEEN ENROLLED IN A CHEMICAL DEPENDENCY/SUBSTANCEABUSE PROGRAM, SOME INFORMATION MAY BE OMITTED. This clinical summary was aggregated from multiple sources. Caution should be exercised in using it in the provision of clinical care. This summary normalizes information from multiple sources, and as a consequence, information in this document may materially change the coding, format and clinical context of patient data. In addition, data may be omitted in some cases. CLINICAL DECISIONS SHOULD BE BASED ON THE PRIMARY CLINICAL RECORDS. [employer] provides no warranty or guarantee of the accuracy or completeness of information in this document.
== END 2024-10-02 08:35 | disposition home or self-care (01) ==
LOC: NOMS 08:34
PROVIDERS: PCP Obstetrics & Gynecology; Visit Provider Obstetrics & Gynecology
DX: O36.63X0 Maternal care for excessive fetal growth, third trimester, not applicable or unspecified (principal); Z3A.32 32 weeks gestation of pregnancy
CPT/HCPCS: 76816

== ENCOUNTER 2024-10-31 19:36 | Outpatient (REF) | payer OTHER, SELFPAY ==
--- OUTSIDE RECORDS SUMMARY | 2024-10-31 19:40 | XMS_ITS | CCD ---
Author Organization [facility] Care Team Providers Care Surgical Garment Fitter Name Role Phone Kang Alfaro MD Primary Care Provider [phone] Kang Alfaro MD Unavailable UNALLOCATED, [facility] PROVIDER Referring Unava ilable CARLA PENNINGTON Attending Unavailable CARLA PENNINGTON P Referring Unavailable ADITI PENOLA P Referring Unavailable ADITI PENOLA P Attending Unavailable TERRENCE PENNINGTONOLA P Referring Unavailable FLORA MERCADO Attending Unavailable ROGELIOFLORA Watters Attending Unavailable ROGELIOFLORA DAVALOS Attending Unavailable Medications Current Medications Medication Drug Class(es) Dates Sig (Normalized) Sig (Original) MV-Min-Fe Fum-FA-DHA ( 1 PO) (8 sources) MV-Min- Fe Fum-FA-DHA ( 1 PO) Take 1 tablet by mouth Daily Active Problems Problem Classification Problem Date Documented Da te Episodic/Chronic Other complications of (2 sources) Excessive growth affecting management of mother; Translations: [Maternal care for excessive growth, unspecified trimester, not applicable or unspecified] 09-11-2024 Episodic Other and delivery including normal (16 sources) Second trimester ; Translations: [Encounter for supervision of normal , unspecified, second trimester] Onset: 09-11-2024 08-07-2024 Episodic Other screening for suspected conditions (not mental disorders or infectious disease) (1 source) Patient encounter status; Translations: [Encounter for screening for diabetes mellitus] 08-07-2024 Episodic Residual codes; unclassified (1 source) Gestation period, 24 weeks; Translations: [24 weeks gestation of ] 08-07-2024 Episodic Residual codes; unclassified (10 sources) Gestation period, 29 weeks; Translations: [29 weeks gestation of ] Onset: 09-11-2024 09-11-2024 Episodic Residual codes; unclassified (2 sources) Gestation period, 32 weeks; Translations: [32 weeks gestation of ] 10-02-2024 Episodic Residual codes; unclassified (2 sources) Gestation period, 37 weeks; Translations: [37 weeks gestation of ] 10-31-2024 Episodic Unclassified (12 sources) OB Reminders Onset: 04-06-2024 04-06-2024 Results Test Name Value Interpretation Reference Range Facility Urinalysis macro (dipstick) panel (U)on 10-31-2024 Bilirubin, UA Negative Negative - 4(70) +++ mg/dL [facility] Blood, UA Negative Negative - 50 Cameron/mcL [facility] Healthcare Clarity, UA Clear [facility] Color, UA Yellow [facility] Glucose, UA Negative Negative - 1999(110) ++++ mg/dL [facility] Interpretation and review of laboratory results Abnormal [facility] re Ketones, UA Negative Negative - 160(16) ++++ mg/dL [facility] Leukocytes, UA Trace Negative - 500+++ Cynthia/mcL [facility] Nitrite, UA Negative Negative - Positive [facility] pH, UA 7 5 - 9 [facility] e Protein, UA Negative Negative - 1999(20) ++++ mg/dL [facility] Spec Grav, UA 1.015 1 - 1.03 [facility] Urobilinogen, UA 0.2 0.2 - 12 mg/dL [facility] Urinalysis macro (dipstick) panel (U)on 10-02-2024 Bilirubin, UA Negative Negative - 4(70) +++ mg/dL [facility] Blood, UA Negative Negative - 50 Cameron/mcL [facility] Healthcare Clarity, UA Clear [facility] re Color, UA Yellow [facility] Glucose, UA Negative Negative - 1999(110) ++++ mg/dL [facility] Interpretation and review of laboratory results Abnormal [facility] Ketones, UA Negative Negative - 160(16) ++++ mg/dL [facility] Leukocytes, UA Trace Negative - 500+++ Cynthia/mcL [facility] Nitrite, UA Negative Negative - Positive [facility] pH, UA 6.5 5 - 9 [facility] Protein, UA Negative Negative - 1999(20) ++++ mg/dL [facility] Spec Grav, UA 1.015 1 - 1.03 [facility] Urobilinogen, UA 0.2 0.2 - 12 mg/dL [facility] Urinalysis macro (dipstick) panel (U)on 09-11-2024 Bilirubin, UA Negative Negative - 4(70) +++ mg/dL [facility] Blood, UA Negative Negative - 50 Cameron/mcL [facility] Clarity, UA Clear [facility] re Color, UA Yellow [facility] Glucose, UA Negative Negative - 1999(110) ++++ mg/dL [facility] Interpretation and review of laboratory results Normal [facility] re Ketones, UA Negative Negative - 160(16) ++++ mg/dL [facility] Leukocytes, UA Negative Negative - 500+++ Cynthia/mcL [facility] Nitrite, UA Negative Negative - Positive [facility] pH, UA 7 5 - 9 [facility] e Protein, UA Negative Negative - 1999(20) ++++ mg/dL [facility] Spec Grav, UA 1.02 1 - 1.03 [facility] Urobilinogen, UA 0.2 0.2 - 12 mg/dL [facility] e HCV ANTIBODY RFX TO QUANT PC Hieu 08-31-2024 HCV AB Non-Reactive Non Reactive [facility] hcare INTERPRETATION: Comment . [facility] thcare Comment on above: Not infected with HC V unless early or acute infection is suspected (which may be delayed in an immunocompromised individual), or other evidence exists to indicate HCV infection. Performed at: [facility] [address] [id number] Tire Care Manager: Tank Ureña PhD, Phone: [phone] [facility] ALL CBC WITH AUTO DIFFon BASOPHILS ABSOLUTE AUTO 0 [facility] Basophils/100 WBC (Bld) 0.2 % 0.2 - 2.0 % [facility] Eosinophils/100 WBC (Bld) 0.6 % Low 0.9 - 7.0 % [facility] Erythrocyte distribution width (RBC) [Ratio] 13.2 % 11.0 - 15.0 % [facility] Hematocrit (Bld) [Volume fraction] 35.5 % Low 36.0 - 48.0 % [facility] Hemoglobin (Bld) [Mass/Vol] 12.1 g/dL 12.0 - 16.0 g/dL [facility] IMMATURE GRANULOCYTES ABS AUTO 0.09 High [facility] Immature granulocytes/100 WBC (Bld) 1 % High 0.0 - 0.5 % [facility] Interpretation and review of laboratory results Abnormal [facility] re LYMPHOCYTES ABSOLUTE AUTO 1.1 Low [facility] Lymphocytes/100 WBC (Bld) 12.2 % Low 20.5 - 60.0 % [facility] MCH (RBC) [Entitic mass] 28.2 pg 26.7 - 34.0 pg [facility] MCHC (RBC) [Mass/Vol] 34.1 g/dL 29.9 - 35.2 g/dL [facility] MCV (RBC) [Entitic vol] 82.8 fL 81.0 - 99.0 fL [facility] MONOCYTES ABSOLUTE AUTO 0.5 [facility] Monocytes/100 WBC (Bld) 5.4 % 1.7 - 12.0 % [facility] NEUTROPHILS ABSOLUTE AUTO 7.1 High [facility] Neutrophils/100 WBC (Bld) 80.6 % High 43.0 - 75.0 % [facility] Platelet mean volume (Bld) [Entitic vol] 9.8 fL 9.5 - 13.5 fL [facility] TBH EO # 0.1 [facility] TB PLT 292 [facility] RBC 4.29 [facility] e [facility] WBC 8.9 [facility] e GLUCOSE 1 HOURon 08-30-2024 Glucose [Mass/Vol] 129 mg/dL NINF - 13 0 mg/dL [facility] Urinalysis macro (dipstick) panel (U)on 08-07-2024 Bilirubin, UA Negative Negative - 4(70) +++ mg/dL [facility] Blood, UA Negative Negative - 50 Cameron/mcL [facility] Clarity, UA Clear [facility] re Color, UA Yellow [facility] Glucose, UA Negative Negative - 2000(110) ++++ mg/dL [facility] Interpretation and review of laboratory results Normal [facility] re Ketones, UA Negative Negative - 160(16) ++++ mg/dL [facility] Leukocytes, UA Negative Negative - 500+++ Cynthia/mcL [facility] Healthcare Nitrite, UA Negative Negative - Positive [facility] Healthcare pH, UA 7 5 - 9 [facility] e Protein, UA Negative Negative - 2000(20) ++++ mg/dL [facility] Spec Grav, UA 1.015 1 - 1.03 [facility] Health care Urobilinogen, UA 0.2 0.2 - 12 mg/dL [facility] Healthcare [facility] e Coding Summary.on 03-07-2020 Coding Summary. CODING DATE: 03/07/2020 FINAL [facility] STATUS: Home (Routine DC) PAYOR: Medicaid EA DESCRIPTION 0471 PLAIN FILM 0496 MINOR PHARMACOTHERAPY [...] Cheryl Glynn Date Saved: 03/07/2020 08:16 am [facility] Consent for Treatmenton 02-16 Consent for Treatment [id number] 0CD:127 Normal [facility] Discharge Instructionson Discharge Instructions [id number]. 00CD:127 Normal [facility] ED Clinical Summaryon 2019 ED Clinical Summary [address] [address] ED Clinical Summary Person Information Name: ARLINE VASQUEZ Kiersten/[facility] Age: 19 Years : 2000 Sex: Female Language: Korean PCP: Hailey CAR CNP Marital Status: Single Phone: [phone] Visit Id: Visit Reason: Foot laceration; FOOT [...] 03/06/2020 13:34:43 03/06/2020 13:34:43 03/06/2020 13:34:43 ADDRESS: [address] [place] [phone] PHYS DOC NOTES: MEDICAL INFORMATION: Prescriptions Given: PATIENT EDUCATION INFORMATION: Instructions: Laceration Care, Adult Follow up: With: Address: When: Hailey CAR [address] [place] [address] Business (1) In 3 days 03/09/2020 Comments: 10 days for suture removal DIAGNOSIS: Laceration of left foot Normal [facility] ED Note-Physicianon 03-06-20 ED Note-Physician Basic [...] In 3 days 03/09/2020 EDT [address] [place] [address]- Business (1) Additional Instructions: 10 days for [...] The case was discussed with: the physician production assistant, Dannie Colin PA-C. Procedures: I directly [...] variant. Signed By: Raheem BOSE, Rhianna Ibarra [facility] Comment on above: Result Comment: [...] the sutures are removed. ? Only take viwx-aoh-eukwwny or prescription medicines for pain, discomfort, or [...] 12/26/2012 Document Reviewed: 03/29/2012 ExitCare? Patient Information ?2014 [employer], Latest Medical. This information is not intended to replace advice given to you by your health care provider. Make sure you discuss any questions you have with your health care provider. Normal [facility] ED Patient Summaryon 020 ED Patient Summary [address] [address] Patient Discharge Instructions Person Information Name: ARLINE VASQUEZ Age: 19 Years Arrival Date: 03/06/2020 11:49:56 Discharge Diagnosis: Laceration of left foot Primary Care Physician: Hailey CAR CNP Provider Information Primary Provider: Emilie Hill DO Advanced Produce Sorter:Dannie Colin PA-C The exam and treatment you received in the Emergency Department were for an urgent problem and are not intended as complete care. It is important that you follow up with a doctor, nurse practitioner, or physician?s production assistant for ongoing care. If your symptoms become worse or you do not improve as expected and you are unable to reach your usual health care provider, you should return to the Emergency Department. We are available 24 hours a day. ARLINE VASQUEZ has been given the following list of patient education materials, prescriptions and follow-up instructions: Follow-up Instructions: With: Address: When: Hailey CAR [address] [place] [phone] Business (1) In 3 days 03/09/2020 Comments: [...] opioids can be used to help relieve tsmqbwcx-oq-oqxxdb pain and are often prescribed following a [...] be struggling with addiction, tell your health critical care rn and ask for guidance or call SAMHSA?S National Helpline at 4-679-880-HELP. v Source: US Department of Health and Human Services/Center for Disease Control & Prevention [facility] Medications Given: Medication Dose Route lidocaine 10.00 mg SubCutaneous Left Foot Medication Information: Comment: Pharmacy Information: Thank you for choosing [facility] Patient Education Materials: Laceration Care, Adult [...] the sutures are removed. ? Only take zafq-ify-tilayym or prescription medicines for pain, discomfort, or [...] Document Reviewed: 03/29/2012 ExitCare? Patient Information ?2015 [employer]. This information is not intended to replace advice given to you by your health care provider. Make sure you discuss any questions you have with your health care provider. LOI Mae CYDNEY C , have received the following patient education materials/instructions and have verbalized understanding: Patient Education Materials: Laceration Care, Adult Follow-up Instructions: With: Address: When: Hailey CAR [address] [place] [address] Business (1) In 3 days 03/09/2020 Comments: 10 days for suture removal Patient Signature Date Clinician/Nurse Signature ___ Date 03/06/2020 13:34:45 Normal [facility] Prescriptions/Work Noteson 0 03-06-2020 Prescriptions/Work Notes [id number]:127 Normal [facility] XR Foot 3+ Views Lefton 02-16 [...] Maciel MD Transcribed by: RENETTA Technologist: JOLANTA [facility] Coding Summary.on 06-03-2019 Coding Summary. CODING DATE: 06/03/2019 FINAL [facility] STATUS: Home (Routine ME) PAYOR: Medicaid EAPG DESCRIPTION 0457 VENIPUNCTURE 0403 [...] Gracie Bourne Date Saved: 06/03/2019 10:40 am [facility] BMPon 05-31-2019 Anion gap [Moles/Vol] 16 mmol/L Normal 04-02 [facility] Comment on above: Performed By: #### 2 [id number], [id number] #### [facility] [address] [place] [address] Calcium [Mass/Vol] 9.6 mg/dL Normal 8.9-11.1 [facility] Comment on above: Performed By: #### 2 [id number], [id number] #### [facility] [address] [place] [address] Chloride [Moles/Vol] 104 mmol/L Normal 101-111 [facility] Comment on above: Performed By: #### 2 [id number], [id number] #### [facility] [address] [place] [address] CO2 [Moles/Vol] 22 mmol/L Normal 21-31 [facility] Comment on above: Performed By: #### 2 [id number], [id number] #### [facility] [address] [place] [address] Creatinine [Mass/Vol] 0.7 mg/dL Normal 0.5-1.3 [facility] Comment on above: Performed By: #### 2 [id number], [id number] #### [facility] [address] [place] [address] Glucose [Mass/Vol] 92 mg/dL Normal 55-199 [facility] Comment on above: Result Comment: If t his glucose result represents a fasting glucose, interpretation should refer to the following reference range: 55-99 mg/dL Performed By: #### 2 [id number], [id number] #### [facility] [address] [place] [address] Potassium [Moles/Vol] 4.2 mmol/L Normal 3.5-5.3 [facility] Comment on above: Performed By: #### 2 [id number], [id number] #### [facility] [address] [place] [address] Sodium [Moles/Vol] 138 mmol/L Normal 135-145 [facility] Comment on above: Performed By: #### 2 [id number], [id number] #### [facility] [address] [place] [address] Urea nitrogen [Mass/Vol] 14 mg/dL Normal 5-21 [facility] Comment on above: Performed By: #### 2 [id number], [id number] #### [facility] [address] [place] [address] Urea nitrogen/Creatinine [Mass ratio] 20 No Units Normal 10-20 [facility] Comment on above: Performed By: #### 2 [id number], [id number] #### [facility] [address] [place] [address] Lipid Panelon 05-31-2019 Cholesterol in LDL [Mass/Vol] 127 mg/dL Normal <=129 [facility] Comment on above: Performed By: #### 2 [id number], [id number] #### [facility] [address] [place] [address] Cholesterol [Mass/Vol] 186 mg/dL Normal 120-200 [facility] Comment on above: Performed By: #### 2 [id number], [id number] #### [facility] [address] [place] [address] Cholesterol in HDL [Mass/Vol] 34 mg/dL [facility] Comment on above: Result Comment: HDL > or equal to 60 mg/dL: Low cardiovascular risk HDL < 40 mg/dL : High cardiovascular risk Performed By: #### 2 [id number], [id number] #### [facility] [address] [place] [address] Cholesterol in VLDL [Mass/Vol] 51 mg/dL High 7-40 [facility] Comment on above: Performed By: #### 2 [id number], [id number] #### [facility] [address] [place] [address] Triglyceride [Mass/Vol] 256 mg/dL High <=149 [facility] Comment on above: Performed By: #### 2 [id number], [id number] #### [facility] [address] [place] [address] Vital Signs Date Time Vital Sign Value Performing Clinician Jasiel berg 10-31-2024 10:02-0500 Body weight 107.86 kg Flora Mercado Rawlemon Work Phone: [facility] 10-31-2024 10:02-0500 Diastolic blood pressure 80 mm[Hg] Flora Rogelio DO Work Phone: [facility] 10-31-2024 10:02-0500 Systolic blood pressure 126 mm[Hg] Flora Rogelio DO Work Phone: [facility] 10-02-2024 09:24-0500 Body weight 104.78 kg Flora Rogelio DO Work Phone: [facility] 10-02-2024 09:24-0500 Diastolic blood pressure 72 mm[Hg] Flora Rogelio DO Work Phone: [facility] 10-02-2024 09:24-0500 Systolic blood pressure 124 mm[Hg] Flora Rogelio DO Work Phone: [facility] 09-11-2024 09:32-0500 Body weight 101.61 kg Flora Rogelio DO Work Phone: [facility] 09-11-2024 09:32-0500 Diastolic blood pressure 60 mm[Hg] Flora Rogelio DO Work Phone: [facility] 09-11-2024 09:32-0500 Systolic blood pressure 100 mm[Hg] Flora Rogelio DO Work Phone: [facility] 08-07-2024 14:18-0400 Body weight 98.43 kg Flora Rogelio DO Work Phone: [facility] 08-07-2024 14:18-0400 Diastolic blood pressure 74 mm[Hg] Flora Rogelio DO Work Phone: [facility] 08-07-2024 14:18-0400 Systolic blood pressure 112 mm[Hg] Flora Rogelio DO Work Phone: [facility] Encounters Encounter Date Encounter Type Care Provider Facility Start: 10-31-2024 End: 10-31-2024 Bamboo flowsheet Flora Rogelio DO Work Phone: [facility] Start: 10-31-2024 End: 10-31-2024 Bamboo flowsheet Flora Rogelio DO Work Phone: [facility] Start: 10-31-2024 End: 10-31-2024 flow sheet Flora Rogelio DO Work Phone: [facility] Comment on above: 37 weeks gestation o f ; Third trimester Start: 10-02-2024 End: 10-02-2024 Bamboo flowsheet Flora Rogelio DO Work Phone: [facility] Start: 10-02-2024 End: 10-02-2024 Bamboo flowsheet Flora Rogelio DO Work Phone: [facility] Start: 10-02-2024 End: 10-02-2024 flow sheet Flora Rogelio DO Work Phone: [facility] Comment on above: 32 weeks gestation o f ; Third trimester Start: 10-02-2024 End: 10-02-2024 ambulatory FLORA ROGELIO Not Available Start: 09-11-2024 End: 09-11-2024 Bamboo flowsheet Flora Rogelio DO Work Phone: [facility] Start: 09-11-2024 End: 09-11-2024 Bamboo flowsheet Flora Rogelio DO Work Phone: [facility] Start: 09-11-2024 End: 09-11-2024 ambulatory FLORA ROGELIO Not Available Start: 09-11-2024 End: 09-11-2024 flow sheet Flora Rogelio DO Work Phone: [facility] Comment on above: 29 weeks gestation o f ; Third trimester ; Excessive growth affecting management of , antepartum, single or unspecified fetus Start: 08-30-2024 End: 08-30-2024 [facility] Result Encounter Flora Rogelio DO Work Phone: [facility] External [facility] Unsolicited Start: 08-30-2024 End: 08-30-2024 [facility] Result Encounter Flora Rogelio DO Work Phone: [facility] Unsolicited Start: 08-07-2024 End: 08-07-2024 Bamboo flowsheet Flora Rogelio DO Work Phone: [facility] Start: 08-07-2024 End: 08-07-2024 Bamboo flowsheet Flora Rogelio DO Work Phone: [facility] Start: 08-07-2024 End: 08-07-2024 flow sheet Flora Rogelio DO Work Phone: [facility] Comment on above: Second trimester pre gnancy; Diabetes mellitus screening; , unspecified gestational age; 24 weeks gestation of Start: 08-07-2024 End: 08-07-2024 ambulatory LFORA ROGELIO Not Available Start: 06-23-2024 End: 06-23-2024 ambulatory [facility] UNALLOCATED Not Available Start: 06-01-2024 End: 06-01-2024 ambulatory PENOLA P PENNINGTON Not Available Start: 05-19-2024 End: 05-19-2024 ambulatory PENOLA P PENNINGTON Not Available Start: 04-27-2024 End: 04-27-2024 ambulatory PENOLA P PENNINGTON Not Available Start: 04-05-2024 End: 04-05-2024 ambulatory [facility] PROVIDER UNALLOCATED Not Available Procedures Date Procedure Procedure Detail Performing Clinician Start: 10-31-2024 Urnls dip stick/tabl et rgnt non-auto w/o micrscp Flora Rogelio DO Work Phone: Start: 10-02-2024 Urnls dip stick/tabl et rgnt non-auto w/o micrscp Flora Rogelio DO Work Phone: Start: 09-11-2024 Urnls dip stick/tabl et rgnt [...] Treatment Date Care Activity Detail Author Start: 11-14-2024 End: 11-14-2024 Patient encounter procedure 11/14/2024 9:20 AM EST Routine [facility] [address] [facility] [place] [phone] Flora Mercado DO [address] [place], [place] [id number] [facility] Start: 11-07-2024 End: 11-07-2024 Patient encounter procedure 11/07/2024 10:10 AM EST Routine [facility] [address] [place] [phone] Flora Mercado, DO [address] [place] [address] [facility] Start: 10-31-2024 End: 10-31-2025 CULTURE, GROUP B STREP WITH SUSCEPTIBLITY CULTURE, GROUP B STREP WITH SUSCEPTIBLITY Lab Routine Third trimester Expected: 10/31/2024, Expires: 10/31/2025 [facility] Work Phone: Comment on above: Expected: 10/31/2024 , Expires: 10/31/2025 Start: 10-31-2024 End: 10-31-2024 Patient encounter procedure 10/31/2024 9:20 AM EST Routine [facility] [address] [place] [address] Flora Mercado, DO [address] [place] [address] [facility] Start: 10-23-2024 End: 10-23-2024 Patient encounter procedure 10/23/2024 9:00 AM EST Routine [facility] [address] [facility] [place] [phone] Flora Mercado, DO [address] [place] [address] [place] [address] [facility] Start: 10-02-2024 End: 10-02-2024 Patient encounter procedure [facility] Comment on above: Arrived Start: 10-02-2024 End: 10-02-2024 Professional / ancillary services management 10/02/2024 8:30 AM EST Ancillary Procedure [facility] [address] [facility] [place] [phone] [facility] Start: 09-11-2024 End: 09-11-2025 US for US OB SCAN FOR GROWTH Imaging Routine Excessive growth affecting management of , antepartum, single or unspecified fetus Expected: 09/11/2024 (Approximate), Expires: 09/11/2025 [facility] Work Phone: Comment on above: Expected: 09/11/2024 (Approximate), Expires: 09/11/2025 Start: 09-11-2024 End: 09-11-2024 Patient encounter procedure 09/11/2024 8:50 AM EST Routine [facility] [address] [facility] [place] [phone] Flora Mercado, DO [address] [place] [address] [facility] Start: 08-07-2024 End: 08-07-2025 CBC panel - Blood by Automated count CBC Lab Routine Diabetes mellitus screening Expected: 08/07/2024 (Approximate), Expires: 08/07/2025 [facility] Work Phone: Comment on above: Expected: 08/07/2024 (Approximate), Expires: 08/07/2025 Start: 08-07-2024 End: 08-07-2025 Measurement of glucose 1 hour after glucose challenge for glucose tolerance test Glucose tolerance, 1 hour Lab Routine Diabetes mellitus screening Expected: 08/07/2024 (Approximate), Expires: 08/07/2025 [facility] Comment on above: Expected: 08/07/2024 (Approximate), Expires: 08/07/2025 Start: 08-07-2024 End: 08-07-2024 Patient encounter procedure 08/07/2024 1:50 PM EDT Routine [facility] [address] [address] Flora Mercado DO [address] [place] [address] Arrived [facility] Comment on above: Arrived Start: 06-18-2024 Influenza vaccination Influenza Vacc ine (#1) [facility] Hepatitis C virus Ab [Presence] in Serum or Plasma by Immunoassay Hepatitis C antibody Lab Routine , unspecified gestational age Ordered: 08/07/2024 [facility] Comment on above: Ordered: 08/07/2024 Payers Date Payer Category Payer Private Health Insurance [employer] [id number] 2024 Unknown [id number] 2001 Unknown [id number] 1259 2001 Unknown [id number]. 1259 2001 Unknown [id number]. 1259 2001 Unknown [id number]. 1259 2001 Unknown [id number] [id number]. 1259 2001 Unknown [id number] [id number]. 1259 2001 Unknown [id number] [id number]. 1259 2001 Unknown [id number]. 1259 Social History Date Type Detail Facility Start: 04-05-2024 Tobacco smoking stat [facility] Never smoked tobacco [facility] Start: 04-05-2024 [...] health goal History of Present illness Narrative 10-31-2024 JESICA Remy - 10/31/2024 9:20 AM EST Note Date & Type Note Facility 10-31-2024 History of Presen t illness Narrative Reason [...] Exam Constitutional: Appearance: Normal appearance. She is normal weight. HENT: Head: Normocephalic. Cardiovascular: Rate and Rhythm: Normal rate. Pulses: Normal pulses. Pulmonary: Effort: Pulmonary effort is normal. Breath sounds: Normal breath sounds. Abdominal: Palpations: Abdomen is soft. Musculoskeletal: General: Normal range of motion. Neurological: General: No focal deficit present. Mental Status: She is alert and oriented to person, place, and time. Psychiatric: Mood and Affect: Mood normal. Behavior: Behavior normal. Thought Content: Thought content normal. Judgment: Judgment normal. Vitals and nursing note reviewed. Vitals: Estimated body mass index is 34.81 kg/m as calculated from the following: Height as of 03/23/19: 5' 4 . Weight as of 03/23/19: 202 lb 12.8 oz. BP: 126/80 Patient's last menstrual period was 01/18/2024. ASSESSMENT & PLAN ICD-10-CM 1. 37 weeks gestation of Z3A.37 POCT urinalysis dipstick manually resulted 2. Third trimester Z34.93 CULTURE, GROUP B STREP WITH SUSCEPTIBLITY CULTURE, GROUP B STREP WITH SUSCEPTIBLITY Patient is doing well but has complaints of being tired and having maternal discomfort due to . Patient verbalized frequent movement and was instructed to perform kick counts three times per day. labor precautions were given, LARC consent was signed/declined, and GBS was obtained. Cervical check was performed and patient is 0cm dilated. Orders Placed This Encounter Procedures CULTURE, GROUP B STREP WITH SUSCEPTIBLITY POCT urinalysis dipstick manually resulted Follow Up: Patient is to return to office in 1 week for routine OB appointment Documented by JESICA Remy on behalf of: Flora Mercado DO documented in this encounter [facility] History of Present illness Narrative 10-02-2024 Allie Castrejon, OUTSIDE DEALER SALES REPRESENTATIVE - 10/02/2024 9:00 AM EST Note Date & Type Note Facility 10-02-2024 History of Presen t illness Narrative Reason [...] Constitutional: Appearance: Normal appearance. She is well-developed. Genitourinary: Vulva normal. Cardiovascular: Rate and Rhythm: Normal rate and [...] nursing note reviewed. Exam conducted with a watch assembly instructor present. Vitals: Estimated body mass index is 34.81 kg/m as calculated from the following: Height as of 03/23/19: 5' 4 . Weight as of 03/23/19: 202 lb 12.8 oz. BP: 124/72 Patient's last menstrual period was 01/18/2024. ASSESSMENT & PLAN ICD-10-CM 1. 32 weeks gestation of Z3A.32 POCT urinalysis dipstick manually resulted 2. Third trimester Z34.93 POCT urinalysis dipstick manually resulted Return OB: Patient presents today for a routine obstetrics appointment. Patient is currently 32w6d . Patient states she is doing well but has complaints of being tired due to current . Patient has verbalizes frequent movement. labor precautions was discussed/given and patient was instructed to perform kick counts three times a day. Orders Placed This Encounter Procedures POCT urinalysis dipstick manually resulted Follow Up: Patient is to return to office in 2 week for routine OB appointment. Documented by Allie Castrejon LPN on behalf of: Flora Mercado DO documented in this encounter [facility] History of Present illness Narrative 09-11-2024 Allie [...] nursing note reviewed. Exam conducted with a watch assembly instructor present. Vitals: Estimated body mass index is [...] History of Present illness Narrative 08-07-2024 Danielle Pineda LPN - 08/07/2024 1:50 PM EDT Note Date [...] nursing note reviewed. Exam conducted with a watch assembly instructor present. Vitals: Estimated body mass index is [...] gestation. Order will be sent to [facility] to be pre-certed and scheduled. Patient to return to clinic in 4 weeks for routine OB care appointment. Patient declined genetic testing previously in the . Patient has complaints of round ligament pain. Documented by Danielle Pineda LPN on behalf of: Flora Mercado [...] fetus documented in this encounter [facility] Evaluation note Note Date & Type Note Facility Evaluation note Diagnosis 32 weeks gestation of Third trimester state, incidental documented in this encounter [facility] Evaluation note Note Date & Type Note Facility Evaluation note Diagnosis 37 weeks gestation of Third trimester state, incidental documented in this encounter [facility] Summary Purpose Family History No Family History Records FoundNo Family History Records Found Advance Directives No Advanced Directives Records FoundNo Advanced Directives Records Found Additional Source Comments INFORMATION SOURCE (unrecogn ized section and content) DATE CREATED AUTHOR 03/19/2020 Remy Zubie [facility] DATE CREATED AUTHOR AUTHOR'S ORGANIZ ATION 10/03/2024 [facility] EPIC Care Teams (unrecognized sec tion and content) Surgical Garment Fitter Relationship Specialty Start Date End Date Kang Alfaro MD [address] [place] [address] PCP - [facility] 02/23/23 Kang Alfaro MD [address] [place] [address] PCP - [facility] 04/17/24 Surgical Garment Fitter Relationship Specialty Start Date End Date Kang Alfaro MD [address] [place] [address] PCP - [facility] 02/23/23 Kang Alfaro MD [address] [place] [address] [facility] - [facility] 04/17/24 Surgical Garment Fitter Relationship Specialty Start Date End Date Kang Alfaro MD [address] [place] [address] PCP - [facility] 02/23/23 Surgical Garment Fitter Relationship Specialty Start Date End Date Kang Alfaro MD [address] [place] [address] PCP - General Family Medicine 02/23/23 Surgical Garment Fitter Relationship Specialty Start Date End Date Kang Alfaro MD [address] [place] [address] PCP - [facility] 02/23/23 Surgical Garment Fitter Relationship Specialty Start Date End Date Kang Alfaro MD [address] [place] [address] PCP - General Family Medicine 02/23/23 Surgical Garment Fitter Relationship Specialty Start Date End Date Kang Alfaro MD [address] [place] [address] PCP - General Family Medicine 02/23/23 Reason for Visit (unrecogniz ed section [...] BE BASED ON THE PRIMARY CLINICAL RECORDS. [email or web address] provides no warranty or guarantee of the accuracy or completeness of information in this document.
== END 2024-10-31 19:37 | disposition home or self-care (01) ==
LOC: LAB 19:36
PROVIDERS: PCP Obstetrics & Gynecology; Visit Provider Obstetrics & Gynecology
DX: Z34.93 Encounter for supervision of normal pregnancy, unspecified, third trimester (principal)
CPT/HCPCS: 36415; 87081

== ENCOUNTER 2024-11-14 16:11 | Inpatient (IN) | payer OTHER, SELFPAY ==
[2024-11-14] VITALS (12 sets, daily range): BP systolic 111–140; BP diastolic 61–75; PULSE 95–106; TEMP 37.3
--- OUTSIDE RECORDS SUMMARY | 2024-11-14 16:14 | XMS_ITS | CCD ---
Author Organization [facility] Care Team Providers Care Wild Animal Caretaker Name Role Phone Kang Alfaro MD Primary Care Provider [phone] Kang Alfaro MD Unavailable FLORA MERCADO Attending Unavailable UNALLOCATED, [facility] PROVIDER Referring Unava ilable CARLA PENNINGTON Attending Unavailable TERRENCE PENNINGTONOLA P Referring Unavailable PENNINGTON, PENOLA P Referring Unavailable PENNINGTON PENOLA P Attending Unavailable ADITI PENOLA P Referring Unavailable ELIZABETH MERCADOY Attending Unavailable ROGELIO, FLORA Attending Unavailable ROGELIOELIZABETH WattersY Attending Unavailable ROGELIOFLORA DAVALOS Attending Unavailable Medications Current Medications Medication Drug Class(es) Dates Sig (Normalized) Sig (Original) MV-Min-Fe Fum-FA-DHA ( 1 PO) (12 sources) MV-Min- Fe Fum-FA-DHA ( 1 PO) Take 1 tablet by mouth Daily Active Problems Problem Classification Problem Date Documented Da te Episodic/Chronic Other complications of (2 sources) Excessive growth affecting management of mother; Translations: [Maternal care for excessive growth, unspecified trimester, not applicable or unspecified] 09-11-2024 Episodic Other and delivery including normal (20 sources) Second trimester ; Translations: [Encounter for supervision of normal , unspecified, second trimester] Onset: 09-11-2024 08-07-2024 Episodic Other screening for suspected conditions (not mental disorders or infectious disease) (1 source) Patient encounter status; Translations: [Encounter for screening for diabetes mellitus] 08-07-2024 Episodic Residual codes; unclassified (1 source) Gestation period, 24 weeks; Translations: [24 weeks gestation of ] 08-07-2024 Episodic Residual codes; unclassified (14 sources) Gestation period, 29 weeks; Translations: [29 weeks gestation of ] Onset: 09-11-2024 09-11-2024 Episodic Residual codes; unclassified (2 sources) Gestation period, 32 weeks; Translations: [32 weeks gestation of ] 10-02-2024 Episodic Residual codes; unclassified (2 sources) Gestation period, 37 weeks; Translations: [37 weeks gestation of ] 10-31-2024 Episodic Residual codes; unclassified (2 sources) Gestation period, 38 weeks; Translations: [38 weeks gestation of ] 11-07-2024 Episodic Unclassified (16 sources) OB Reminders Onset: 04-06-2024 04-06-2024 Results Test Name Value Interpretation Reference Range Facility ALL MISCELLANEOUS TESTon MISCELLANEOUS TEST COMMENT . [facility] Comment on above: Test Ordered: [id number] Strep Gp B Culture+Rflx Strep Gp B Culture+Rflx Positive [A ] CB Reference Range: Negative Centers for Disease Control and Prevention (CDC) and [place] [employer] of [employer]stetricians [employer] Gynecologists (ACOG) guidelines for prevention of group B streptococcal (GBS) disease specify co-collection of a vaginal and rectal swab specimen to maximize sensitivity of GBS detection. Per the CDC and ACOG, swabbing both the lower vagina and rectum substantially increases the yield of detection compared with sampling the vagina alone. Penicillin G, ampicillin, or cefazolin are indicated for intrapartum prophylaxis of GBS colonization. Reflex susceptibility testing should be performed prior to use of clindamycin only on GBS isolates from penicillin- allergic women who are considered a high risk for anaphylaxis. Treatment with vancomycin without additional testing is warranted if resistance to clindamycin is noted. Organism Identification Comment CB Reference Range: . Beta hemolytic Streptococcus, group B Clindamycin Susceptible CB Reference Range: . Testing for inducible clindamycin resistance was performed using erythromycin and clindamycin in the D-zone test. Per the Centers for Disease Control and Prevention (CDC), erythromycin is no longer an acceptable alternative for intrapartum group B Streptococcus (GBS) prophylaxis for penicillin-allergic women at high risk for anaphylaxis. Performed at: [address] [id number] Ethologist: Tank Ureña PhD, Phone: [phone] GROUP B STREP [id number] Group B Streptococcus Colonization Detection Culture With Re [facility] Urinal[facility] macro (dipstick) panel (U)on 10-31-2024 Bilirubin, UA Negative Negative - 4(70) +++ mg/dL [facility] Healthcare Blood, UA Negative Negative - 50 Cameron/mcL [facility] Healthcare Clarity, UA Clear [facility] Color, UA Yellow [facility] Glucose, UA Negative Negative - 1999(110) ++++ mg/dL [facility] Interpretation and review of laboratory results Abnormal [facility] Ketones, UA Negative Negative - 160(16) ++++ mg/dL [facility] Healthcare Leukocytes, UA Trace Negative - 500+++ Cynthia/mcL [facility] Healthcare Nitrite, UA Negative Negative - Positive [facility] Healthcare pH, UA 7 5 - 9 [facility] Protein, UA Negative Negative - 1999(20) ++++ mg/dL [facility] Healthcare Spec Grav, UA 1.015 1 - 1.03 [facility] Health care Urobilinogen, UA 0.2 0.2 - 12 mg/dL [facility] Urinalysis macro (dipstick) panel (U)on 10-02-2024 Bilirubin, UA Negative Negative - 4(70) +++ mg/dL [facility] Blood, UA Negative Negative - 50 Cameron/mcL [facility] Healthcare Clarity, UA Clear [facility] Color, UA Yellow [facility] Healthcar e Glucose, UA Negative Negative - 1999(110) ++++ mg/dL [facility] Interpretation and review of laboratory results Abnormal [facility] Ketones, UA Negative Negative - 160(16) ++++ mg/dL [facility] Healthcare Leukocytes, UA Trace Negative - 500+++ Cynthia/mcL [facility] Healthcare Nitrite, UA Negative Negative - Positive [facility] pH, UA 6.5 5 - 9 [facility] Protein, UA Negative Negative - 1999(20) ++++ mg/dL [facility] Healthcare Spec Grav, UA 1.015 1 - 1.03 [facility] care Urobilinogen, UA 0.2 0.2 - 12 mg/dL [facility] Urinalysis macro (dipstick) panel (U)on 09-11-2024 Bilirubin, UA Negative Negative - 4(70) +++ mg/dL [facility] Healthcare Blood, UA Negative Negative - 50 Cameron/mcL [facility] Healthcare Clarity, UA Clear [facility] re Color, UA Yellow [facility] Glucose, UA Negative Negative - 1999(110) ++++ mg/dL [facility] Interpretation and review of laboratory results Normal [facility] Ketones, UA Negative Negative - 160(16) ++++ mg/dL [facility] Leukocytes, UA Negative Negative - 500+++ Cynthia/mcL [facility] Nitrite, UA Negative Negative - Positive [facility] pH, UA 7 5 - 9 [facility] e Protein, UA Negative Negative - 1999(20) ++++ mg/dL [facility] Spec Grav, UA 1.02 1 - 1.03 [facility] Urobilinogen, UA 0.2 0.2 - 12 mg/dL [facility] Health[facility] e HCV ANTIBODY RFX TO QUANT PC Hieu 08-31-2024 HCV AB Non-Reactive Non Reactive [facility] hcare INTERPRETATION: Comment . [facility] thcare Comment on above: Not infected with HC V unless early or acute infection is suspected (which may be delayed in an immunocompromised individual), or other evidence exists to indicate HCV infection. Performed at: - [facility] [id number] Ethologist: Tank Ureña PhD, Phone: [phone] [facility] e ALL CBC WITH AUTO DIFFon BASOPHILS ABSOLUTE AUTO 0 [facility] Basophils/100 WBC (Bld) 0.2 % 0.2 - 2.0 % [facility] Eosinophils/100 WBC (Bld) 0.6 % Low 0.9 - 7.0 % [facility] Erythrocyte distribution width (RBC) [Ratio] 13.2 % 11.0 - 15.0 % [facility] Hematocrit (Bld) [Volume fraction] 35.5 % Low 36.0 - 48.0 % [facility] Hemoglobin (Bld) [Mass/Vol] 12.1 g/dL 12.0 - 16.0 g/dL [facility] IMMATURE GRANULOCYTES ABS AUTO 0.09 High [facility] Immature granulocytes/100 WBC (Bld) 1 % High 0.0 - 0.5 % [facility] Interpretation and review of laboratory results Abnormal [facility] re LYMPHOCYTES ABSOLUTE AUTO 1.1 Low [facility] Lymphocytes/100 WBC (Bld) 12.2 % Low 20.5 - 60.0 % [facility] MCH (RBC) [Entitic mass] 28.2 pg 26.7 - 34.0 pg [facility] MCHC (RBC) [Mass/Vol] 34.1 g/dL 29.9 - 35.2 g/dL [facility] MCV (RBC) [Entitic vol] 82.8 fL 81.0 - 99.0 fL [facility] MONOCYTES ABSOLUTE AUTO 0.5 [facility] Monocytes/100 WBC (Bld) 5.4 % 1.7 - 12.0 % [facility] NEUTROPHILS ABSOLUTE AUTO 7.1 High [facility] Neutrophils/100 WBC (Bld) 80.6 % High 43.0 - 75.0 % [facility] Platelet mean volume (Bld) [Entitic vol] 9.8 fL 9.5 - 13.5 fL [facility] TBH EO # 0.1 [facility] Health[facility] e TBH PLT 292 [facility] Health[facility] e TBH RBC 4.29 [facility] Health[facility] e TBH WBC 8.9 [facility] Healthcar e CLINISYNC [facility] Healthcar e GLUCOSE 1 HOURon 08-30-2024 Glucose [Mass/Vol] 129 mg/dL NINF - 13 0 mg/dL [facility] Health[facility] e Urinalysis macro (dipstick) panel (U)on 08-07-2024 Bilirubin, UA Negative Negative - 4(70) +++ mg/dL [facility] Blood, UA Negative Negative - 50 Cameron/mcL [facility] Clarity, UA Clear [facility] Healthnd re Color, UA Yellow [facility] Health[facility] e Glucose, UA Negative Negative - 1999(110) ++++ mg/dL [facility] Interpretation and review of laboratory results Normal [facility] re Ketones, UA Negative Negative - 160(16) ++++ mg/dL [facility] Leukocytes, UA Negative Negative - 500+++ Cynthia/mcL [facility] Nitrite, UA Negative Negative - Positive [facility] pH, UA 7 5 - 9 [facility] Healthcar e Protein, UA Negative Negative - 1999(20) ++++ mg/dL [facility] Spec Grav, UA 1.015 1 - 1.03 [facility] Urobilinogen, UA 0.2 0.2 - 12 mg/dL [facility] Coding Summary.on 03-07-2020 Coding Summary. CODING DATE: 03/07/2020 FINAL [facility] DSC STATUS: Home (Routine DC) PAYOR: Medicaid EA [...] Cheryl Glynn Date Saved: 03/07/2020 08:16 am [facility] Consent for Treatmenton 02-16 Consent for Treatment [id number] 0CD:127 [facility] Discharge Instructionson Discharge Instructions [id number]. [id number]:127 [facility] ED Clinical Summaryon 2019 ED Clinical Summary [place] [id number] ED Clinical Summary Person Information Name: ARLINE VASQUEZ Kiersten/[facility] Age: 19 Years : 2000 Sex: Female Language: South African PCP: Hailey CAR CNP Marital Status: Single Phone: [phone] Visit Id: Visit Reason: Foot laceration; FOOT [...] 03/06/2020 13:34:43 03/06/2020 13:34:43 03/06/2020 13:34:43 ADDRESS: [address] [place] [phone] PHYS DOC NOTES: MEDICAL INFORMATION: Prescriptions Given: PATIENT EDUCATION INFORMATION: Instructions: Laceration Care, Adult Follow up: With: Address: When: Hailey CAR [address] [id number] Seat[place] (1) In 3 days 03/09/2020 Comments: 10 days for suture removal DIAGNOSIS: Laceration of left foot [facility] ED Note-Physicianon 03-06-20 ED Note-Physician Basic [...] In 3 days 03/09/2020 EDT [address] [id number] Business (1) Additional Instructions: 10 days for [...] The case was discussed with: the physician assistant manager/embalmer, Dannie Colin PA-C. Procedures: I directly supervised [...] variant. Signed By: Raheem BOSE, Rhianna Ibarra [facility] Comment on above: Result Comment: Elec tronically [...] the sutures are removed. ? Only take lhmo-jfi-ktgbeto or prescription medicines for pain, discomfort, or [...] Document Reviewed: 03/29/2012 ExitCare? Patient Information ?2015 [employer]. This information is not intended to replace advice given to you by your health care provider. Make sure you discuss any questions you have with your health care provider. [facility] ED Patient Summaryon 020 ED Patient Summary [address] [address] Patient Discharge Instructions Person Information Name: ARLINE VASQUEZ Age: 19 Years Arrival Date: 03/06/2020 11:49:56 Discharge Diagnosis: Laceration of left foot Primary Care Physician: Hailey CAR CNP Provider Information Primary Provider: Emilie Hill DO Advanced Civil Rights Representative:Dannie Colin PA-C The exam and treatment you received in the Emergency Department were for an urgent problem and are not intended as complete care. It is important that you follow up with a doctor, nurse practitioner, or physician?s assistant manager/embalmer for ongoing care. If your symptoms become [...] With: Address: When: Hailey CAR [address] [phone] Business (1) In 3 days 03/09/2020 Comments: [...] opioids can be used to help relieve gfzjouye-rq-bpozgf pain and are often prescribed following a [...] be struggling with addiction, tell your health clinical care coordinator and ask for guidance or call [facility] National Helpline at 3-316-873-VPBM. j Source: US Department of Health and Human Services/Center for Disease Control & Prevention [facility] Medications Given: Medication Dose Route lidocaine 10.00 mg SubCutaneous Left Foot Medication Information: Comment: Pharmacy Information: Thank you for choosing [facility] Patient Education Materials: Laceration Care, Adult [...] the sutures are removed. ? Only take oliy-qqw-muzyvky or prescription medicines for pain, discomfort, or [...] Document Reviewed: 03/29/2012 ExitCare? Patient Information ?2014 [employer]. This information is not intended to replace advice given to you by your health care provider. Make sure you discuss any questions you have with your health care provider. LOI Mae CYDNEY C , have received the following patient education materials/instructions and have verbalized understanding: Patient Education Materials: Laceration Care, Adult Follow-up Instructions: With: Address: When: Hailey CAR [address] [place], [place] [id number] Business (1) In 3 days 03/09/2020 Comments: 10 days for suture removal Patient Signature Date Clinician/Nurse Signature ___ Date 03/06/2020 13:34:45 [facility] Prescriptions/Work Noteson 0 03-06-2020 Prescriptions/Work Notes [id number]:127 [facility] XR Foot 3+ Views Lefton 052 XR Foot 3+ Views Left Exam Date/Time: [...] Maciel MD Transcribed by: RENETTA Technologist: JOLANTA [facility] Coding Summary.on 06-03-2019 Coding Summary. CODING DATE: 06/03/2019 FINAL [facility] DSC STATUS: Home (Routine DC) PAYOR: Medicaid EAPG [...] Bourne Date Saved: 06/03/2019 10:40 am [facility] BMPon 05-31-2019 Anion gap [Moles/Vol] 16 mmol/L Normal 6-16 [facility] Comment on above: Performed By: #### 2 [id number], [id number] #### [facility] [address] [place] [address] Calcium [Mass/Vol] 9.6 mg/dL Normal 8.9-11.1 [facility] Comment on above: Performed By: #### 2 [id number], [id number] #### [facility] [address] [place] [address] Chloride [Moles/Vol] 104 mmol/L Normal 101-111 [facility] Comment on above: Performed By: #### 2 [id number], [id number] #### [facility] [address] [place] [address] CO2 [Moles/Vol] 22 mmol/L Normal 21-31 [facility] Comment on above: Performed By: #### 2 [id number], [id number] #### [facility] [address] [place] [address] Creatinine [Mass/Vol] 0.7 mg/dL Normal 0.5-1.3 [facility] Comment on above: Performed By: #### 2 [id number], [id number] #### [facility] [address] [place] [address] Glucose [Mass/Vol] 92 mg/dL Normal 55-199 [facility] Comment on above: Result Comment: If t his glucose result represents a fasting glucose, interpretation should refer to the following reference range: 55-99 mg/dL Performed By: #### 2 [id number], [id number] #### [facility] [address] [place] [address] Potassium [Moles/Vol] 4.2 mmol/L Normal 3.5-5.3 [facility] Comment on above: Performed By: #### 2 [id number], [id number] #### [facility] [address] [place] [address] Sodium [Moles/Vol] 138 mmol/L Normal 135-145 [facility] Comment on above: Performed By: #### 2 [id number], [id number] #### [facility] [address] [place] [address] Urea nitrogen [Mass/Vol] 14 mg/dL Normal 5-21 [facility] Comment on above: Performed By: #### 2 [id number], [id number] #### [facility] [address] [place] [address] Urea nitrogen/Creatinine [Mass ratio] 20 No Units Normal 10-20 [facility] Comment on above: Performed By: #### 2 [id number], [id number] #### [facility] [address] [place] [address] Lipid Panelon 05-31-2019 Cholesterol in LDL [Mass/Vol] 127 mg/dL Normal <=129 [facility] Comment on above: Performed By: #### 2 [id number], [id number] #### [facility] [address] [place] [address] Cholesterol [Mass/Vol] 186 mg/dL Normal 120-200 [facility] Comment on above: Performed By: #### 2 [id number], [id number] #### [facility] [address] [place] [address] Cholesterol in HDL [Mass/Vol] 34 mg/dL [facility] Comment on above: Result Comment: HDL > or equal to 60 mg/dL: Low cardiovascular risk HDL < 40 mg/dL : High cardiovascular risk Performed By: #### 2 [id number], [id number] #### [facility] [address] [place] [address] Cholesterol in VLDL [Mass/Vol] 51 mg/dL High 7-40 [facility] Comment on above: Performed By: #### 2 [id number], [id number] #### [facility] [address] [place] [address] Triglyceride [Mass/Vol] 256 mg/dL High <=149 [facility] Comment on above: Performed By: #### 2 [id number], [id number] #### [facility] [address] [place] [address] Vital Signs Date Time Vital Sign Value Performing Clinician Jasiel berg 11-07-2024 10:42-0500 Body weight 106.59 kg Flora Rogelio DO Work Phone: [facility] 11-07-2024 10:42-0500 Diastolic blood pressure 78 mm[Hg] Flora Rogelio DO Work Phone: [facility] 11-07-2024 10:42-0500 Systolic blood pressure 126 mm[Hg] Flora Rogelio DO Work Phone: [facility] 10-31-2024 10:02-0500 Body weight 107.86 kg Flora Rogelio DO Work Phone: [facility] 10-31-2024 10:02-0500 Diastolic blood pressure 80 mm[Hg] Flora Rogelio DO Work Phone: [facility] 10-31-2024 10:02-0500 Systolic blood pressure 126 mm[Hg] Flora Rogelio DO Work Phone: [facility] 10-02-2024 09:24-0500 Body weight 104.78 kg Flora Rogelio DO Work Phone: [facility] 10-02-2024 09:24-0500 Diastolic blood pressure 72 mm[Hg] Flora Rogelio DO Work Phone: [facility] 10-02-2024 09:24-0500 Systolic blood pressure 124 mm[Hg] Flora Rogelio DO Work Phone: [facility] 09-11-2024 09:32-0500 Body weight 101.61 kg Flora Rogelio DO Work Phone: [facility] 09-11-2024 09:32-0500 Diastolic blood pressure 60 mm[Hg] Flora Rogelio DO Work Phone: [facility] 09-11-2024 09:32-0500 Systolic blood pressure 100 mm[Hg] Flora Rogelio DO Work Phone: [facility] 08-07-2024 14:18-0400 Body weight 98.43 kg Flora Rogelio DO Work Phone: [facility] 08-07-2024 14:18-0400 Diastolic blood pressure 74 mm[Hg] Flora Rogelio DO Work Phone: [facility] 08-07-2024 14:18-0400 Systolic blood pressure 112 mm[Hg] Flora Rogelio DO Work Phone: [facility] Healthcare Encounters Encounter Date Encounter Type Care Provider Facility Start: 11-07-2024 End: 11-07-2024 Bamboo flowsheet Flora Rogelio DO Work Phone: [facility] Start: 11-07-2024 End: 11-07-2024 Bamboo flowsheet Flora Rogelio DO Work Phone: [facility] Start: 11-07-2024 End: 11-07-2024 ambulatory FLORA ROGELIO Not Available Start: 11-07-2024 End: 11-07-2024 flow sheet Flora Rogelio DO Work Phone: [facility] Comment on above: 38 weeks gestation o f ; Third trimester Start: 10-31-2024 End: 10-31-2024 Bamboo flowsheet Flora Rogelio DO Work Phone: [facility] Start: 10-31-2024 End: 11-07-2024 Bamboo flowsheet Flora Rogelio DO Work Phone: [facility] Start: 10-31-2024 End: 11-07-2024 [facility] Result Encounter Flora Rogelio DO Work Phone: [facility] Unsolicited Start: 10-31-2024 End: 10-31-2024 ambulatory FLORA ROGELIO Not Available Start: 10-31-2024 End: 10-31-2024 flow sheet Flora [...] flow sheet Flora Rogelio DO Work Phone: [facility] Comment on above: 29 weeks [...] flow sheet Flora Rogelio DO Work Phone: [facility] Comment on above: Second trimester pre gnancy; Diabetes mellitus screening; , unspecified gestational age; 24 weeks gestation of Start: 08-07-2024 End: 08-07-2024 ambulatory FLORA ROGELIO Not Available Start: 06-23-2024 End: 06-23-2024 ambulatory FLORA ROGELIO Not Available Start: 06-01-2024 End: 06-01-2024 ambulatory PENOLA P PENNINGTON Not Available Start: 05-19-2024 End: 05-19-2024 ambulatory PENOLA P PENNINGTON Not Available Start: 04-27-2024 End: 04-27-2024 ambulatory CARLA Saul PENNINGTON Not Available Start: 04-05-2024 End: 04-05-2024 ambulatory [facility] PROVIDER UNALLOCATED Not Available Procedures Date Procedure Procedure Detail Performing Clinician Start: 10-31-2024 Urnls dip stick/tabl et rgnt non-auto w/o micrscp Flora Rogelio DO Work Phone: Start: 10-31-2024 ALL MISCELLANEOUS TEST Flora Rogelio DO Work Phone: Start: 10-02-2024 [...] Routine [facility] [address] [place] [address] Flora Mercado, DO [address] [place] [address] [facility] Start: 11-07-2024 End: 11-07-2024 Patient encounter procedure 11/07/2024 10:10 AM EST Routine [facility] [address] [place] [id number] Flora Mercado, DO [address] [place] [address] [facility] Start: 10-31-2024 End: 10-31-2025 CULTURE, GROUP B STREP WITH SUSCEPTIBLITY CULTURE, GROUP B STREP WITH SUSCEPTIBLITY Lab Routine Third trimester Expected: 10/31/2024, Expires: 10/31/2025 [facility] Work Phone: Comment on above: Expected: 10/31/2024 , Expires: 10/31/2025 Start: 10-31-2024 End: 10-31-2024 Patient encounter procedure 10/31/2024 9:20 AM EST Routine [facility] [address] [place] [id number] Flora Mercado, DO [address] [place] [address] [facility] Start: 10-23-2024 End: 10-23-2024 Patient encounter procedure 10/23/2024 9:00 AM EST Routine [facility] [address] [place] [id number] Flora Mercado, DO [address] [place] [address] [facility] Start: 10-02-2024 End: 10-02-2024 Patient encounter procedure [facility] Comment on above: Arrived Start: 10-02-2024 End: 10-02-2024 Professional / ancillary services management 10/02/2024 8:30 AM EST Ancillary Procedure [facility] [address] [place] [id number] [facility] Start: 09-11-2024 End: 09-11-2025 US for US OB SCAN FOR GROWTH Imaging Routine Excessive growth affecting management of , antepartum, single or unspecified fetus Expected: 09/11/2024 (Approximate), Expires: 09/11/2025 [facility] Work Phone: Comment on above: Expected: 09/11/2024 (Approximate), Expires: 09/11/2025 Start: 09-11-2024 End: 09-11-2024 Patient encounter procedure 09/11/2024 8:50 AM EST Routine [facility] [address] [place] [address] Flora Mercado, DO [address] [place] [address] [facility] Start: 08-07-2024 End: 08-07-2025 CBC panel - Blood by Automated count CBC Lab Routine Diabetes mellitus screening Expected: 08/07/2024 (Approximate), Expires: 08/07/2025 [facility] Work Phone: Comment on above: Expected: 08/07/2024 (Approximate), Expires: 08/07/2025 Start: 08-07-2024 End: 08-07-2025 Measurement of glucose 1 hour after glucose challenge for glucose tolerance test Glucose tolerance, 1 hour Lab Routine Diabetes mellitus screening Expected: 08/07/2024 (Approximate), Expires: 08/07/2025 [facility] Comment on above: Expected: 08/07/2024 (Approximate), Expires: 08/07/2025 Start: 08-07-2024 End: 08-07-2024 Patient encounter procedure 08/07/2024 1:50 PM EDT Routine [facility] [address] [place] [address] Flora Mercado, DO [address], [place] [id number] Arrived [facility] Comment on above: Arrived Start: 06-18-2024 Influenza vaccination Influenza Vacc ine (#1) [facility] Hepatitis C virus Ab [Presence] in Serum or Plasma by Immunoassay Hepatitis C antibody Lab Routine , unspecified gestational age Ordered: 08/07/2024 [facility] Comment on above: Ordered: 08/07/2024 Payers Date Payer Category Payer Private Health Insurance [employer] Member Subscriber Plan / Payer (Effective 2024-Present) Name: Arline Vasquez Relation to Subscriber: Self Name: Arline Vasquez Payer ID: Not on file Type: Not on file Address: [place] [id number] 2024 Unknown [id number] 2001 Unknown [id number] 2.16.840.1.624779.3.579.2. 1258 2001 Unknown [id number] 2.16.840.1.258358.3.579.2. 1258 2001 Unknown [id number] 2.16.840.1.146981.3.579.2. 1258 2001 Unknown [id number] 2.16.840.1.007578.3.579.2. 9 2001 Unknown [id number] 2.16.840.1.982050.3.579.2. 1258 2001 Unknown [id number] 2.16.840.1.006780.3.579.2. 1258 2001 Unknown [id number] 2.16.840.1.177350.3.579.2. 1258 2001 Unknown [id number] 2.16.840.1.870347.3.579.2. 1258 2001 Unknown [id number] 2.16.840.1.633416.3.579.2. 1258 2001 Unknown [id number] 2.16.840.1.738076.3.579.2. 1259 Social History Date Type Detail Facility [facility]: [facility] Start: 04-05-2024 [...] health goal History of Present illness Narrative 11-07-2024 Allie CastrejonMELODIE - 11/07/2024 10:10 AM EST Note Date & Type Note Facility 11-07-2024 History of Presen t illness Narrative Reason for Appointment: Patient ID: Arline Vasquez is a 23 y.o. female who presents for No chief complaint on file. Patient presents today for Return OB appointment. [...] nursing note reviewed. Exam conducted with a mail distributor present. Vitals: Estimated body mass index is 34.81 kg/m as calculated from the following: Height as of 03/23/19: 5' 4 . Weight as of 03/23/19: 202 lb 12.8 oz. BP: 126/78 Patient's last menstrual period was 01/18/2024. ASSESSMENT & PLAN ICD-10-CM 1. 38 weeks gestation of Z3A.38 2. Third trimester Z34.93 Return OB: Patient presents today for a routine obstetrics appointment. Patient is currently 38w0d . Patient states she is doing well but has complaints of being tired due to current . Patient has verbalizes frequent movement. labor precautions was discussed/given and patient was instructed to perform kick counts three times a day. No orders of the defined types were placed in this encounter. Follow Up: Patient is to return to office in 1 week for routine OB appointment. Documented by Allie Castrejon LPN on behalf of: Flora Mercado DO documented in this encounter [facility] History of Present illness Narrative 10-31-2024 JESICA [...] Healthcare History of Present illness Narrative 10-02-2024 Alliesneha Castrejon LPN - 10/02/2024 9:00 AM EST Note Date [...] nursing note reviewed. Exam conducted with a mail distributor present. Vitals: Estimated body mass index is [...] nursing note reviewed. Exam conducted with a mail distributor present. Vitals: Estimated body mass index is [...] Flora Mercado DO documented in this encounter [facility] History of Present illness Narrative 08-07-2024 [...] nursing note reviewed. Exam conducted with a mail distributor present. Vitals: Estimated body mass index is [...] gestation. Order will be sent to [facility] to be pre-certed and scheduled. Patient to return to clinic in 4 weeks for routine OB care appointment. Patient declined genetic testing previously in the . Patient has complaints of round ligament pain. Documented by Danielle Pineda LPN on behalf of: Flora Mercado DO documented in this encounter [facility] Healthcare Evaluation note Note Date & Type Note Facility Evaluation note Diagnosis Second trimester state, incidental Diabetes mellitus screening Screening for diabetes mellitus , unspecified gestational age 24 weeks gestation of documented in this encounter [facility] Evaluation note Note Date & Type Note Facility Evaluation note Diagnosis 29 weeks gestation of Third trimester state, incidental Excessive growth affecting management of , antepartum, single or unspecified fetus documented in this encounter [facility] Healthcare Evaluation note Note Date & Type Note Facility Evaluation note Diagnosis 32 weeks gestation of Third trimester state, incidental documented in this encounter [facility] Evaluation note Note Date & Type Note Facility Evaluation note Diagnosis 37 weeks gestation of Third trimester state, incidental documented in this encounter [facility] Evaluation note Note Date & Type Note Facility Evaluation note Diagnosis 38 weeks gestation of Third trimester state, incidental documented in this encounter [facility] Summary Purpose Family History No Family History Records FoundNo Family History Records Found Advance Directives No Advanced Directives Records FoundNo Advanced Directives Records Found Additional Source Comments INFORMATION SOURCE (unrecogn ized section and content) DATE CREATED AUTHOR 03/19/2020 Alberto Seward [facility] DATE CREATED AUTHOR AUTHOR'S ORGANIZ ATION 11/08/2024 [facility] Care Teams (unrecognized sec tion and content) Wild Animal Caretaker Relationship Specialty Start Date End Date Kang Alfaro MD [address] [place] [id number] PCP - [facility] 02/23/23 Kang Alfaro MD [address] [place] [id number] PCP - [facility] 04/17/24 Wild Animal Caretaker Relationship Specialty Start Date End Date Kang Alfaro MD [address] [place] [id number] PCP - [facility] 02/23/23 Kang Alfaro MD [address] [place] [id number] PCP - [facility] 04/17/24 Wild Animal Caretaker Relationship Specialty Start Date End Date Kang Alfaro MD [address] [place] [id number] PCP - [facility] 02/23/23 Wild Animal Caretaker Relationship Specialty Start Date End Date Kang Alfaro MD [address] [place] [id number] PCP - [facility] 02/23/23 Wild Animal Caretaker Relationship Specialty Start Date End Date Kang Alfaro MD [address] [place] [id number] PCP - General Family Medicine 02/23/23 Wild Animal Caretaker Relationship Specialty Start Date End Date Kang Alfaro MD [address] [place] [id number] PCP - General Family Medicine 02/23/23 Wild Animal Caretaker Relationship Specialty Start Date End Date Kang Alfaro MD [address] [place] [id number] PCP - General [facility] 02/23/23 Wild Animal Caretaker Relationship Specialty Start Date End Date Kang Alfaro MD [address] [place] [id number] PCP - General Family Medicine 02/23/23 Reason [...] BE BASED ON THE PRIMARY CLINICAL RECORDS. [employer] provides no warranty or guarantee of the accuracy or completeness of information in this document.
--- OUTSIDE RECORDS SUMMARY | 2024-11-14 16:15 | XMS_ITS | CCD ---
Author Organization [facility] Care Team Providers Care Single Spindle Screw Machine Operator Name Role Phone Kang Alfaro MD Primary Care Provider Kang Alfaro MD Unavailable [phone] FLORA MERCADO Attending Unavailable UNALLOCATED, [facility] PROVIDER [...] [facility] Comment on above: Test Ordered: [id number] Strep Gp B Culture+Rflx Strep Gp B Culture+Rflx Positive [A ] CB Reference Range: Negative Centers for Disease Control and Prevention (CDC) and [place] [employer] of Obstetricians and Gynecologists (ACOG) guidelines [...] at high risk for anaphylaxis. Performed at: [address] [id number] Composition Board Press Operator: Tank Ureña PhD, Phone: [phone] GROUP B STREP [id number] Group B Streptococcus Colonization Detection Culture With Re [facility] Urinalysis macro (dipstick) panel (U)on 10-31-2024 Bilirubin, UA Negative Negative - 4(70) +++ mg/dL [facility] Healthcare Blood, UA Negative Negative - 50 Cameron/mcL [facility] Clarity, UA Clear [facility] Color, UA Yellow [facility] Glucose, UA Negative Negative - 1999(110) ++++ mg/dL [facility] Interpretation and review of laboratory results Abnormal [facility] Ketones, UA Negative Negative - 160(16) ++++ mg/dL [facility] Healthcare Leukocytes, UA Trace Negative - 500+++ Cynthia/mcL [facility] Healthcare Nitrite, UA Negative Negative - Positive [facility] Healthcare pH, UA 7 5 - 9 [facility] Protein, UA Negative Negative - 1999(20) ++++ mg/dL [facility] Healthcare Spec Grav, UA 1.015 1 - 1.03 [facility] Health care Urobilinogen, UA 0.2 0.2 - 12 mg/dL [facility] Urinalysis macro (dipstick) panel (U)on 10-02-2024 Bilirubin, UA Negative Negative - 4(70) +++ mg/dL [facility] Blood, UA Negative Negative - 50 Cameron/mcL [facility] Healthcare Clarity, UA Clear [facility] Color, UA Yellow [facility] Healthcar e Glucose, UA Negative Negative - 1999(110) ++++ mg/dL [facility] Interpretation and review of laboratory results Abnormal [facility] Ketones, UA Negative Negative - 160(16) ++++ mg/dL [facility] Healthcare Leukocytes, UA Trace Negative - 500+++ Cynthia/mcL [facility] Healthcare Nitrite, UA Negative Negative - Positive [facility] pH, UA 6.5 5 - 9 [facility] Protein, UA Negative Negative - 1999(20) ++++ mg/dL [facility] Healthcare Spec Grav, UA 1.015 1 - 1.03 [facility] care Urobilinogen, UA 0.2 0.2 - 12 mg/dL [facility] Urinalysis macro (dipstick) panel (U)on 09-11-2024 Bilirubin, UA Negative Negative - 4(70) +++ mg/dL [facility] Healthcare Blood, UA Negative Negative - 50 Cameron/mcL [facility] Healthcare Clarity, UA Clear [facility] Color, UA Yellow [facility] Glucose, UA Negative Negative - 1999(110) ++++ mg/dL [facility] Interpretation and review of laboratory results Normal [facility] Ketones, UA Negative Negative - 160(16) ++++ mg/dL [facility] Leukocytes, UA Negative Negative - 500+++ Cynthia/mcL [facility] Nitrite, UA Negative Negative - Positive [facility] pH, UA 7 5 - 9 [facility] e Protein, UA Negative Negative - 1999(20) ++++ mg/dL [facility] Spec Grav, UA 1.02 1 - 1.03 [facility] Urobilinogen, UA 0.2 0.2 - 12 mg/dL [facility] HCV ANTIBODY RFX TO QUANT PC Hieu 08-31-2024 HCV AB Non-Reactive Non Reactive [facility] hcare INTERPRETATION: Comment . [facility] thcare Comment on above: Not infected with HC V unless early or acute infection is suspected (which may be delayed in an immunocompromised individual), or other evidence exists to indicate HCV infection. Performed at: - [facility] [id number] Composition Board Press Operator: Tank Ureña PhD, Phone: [phone] [facility] e ALL CBC WITH AUTO DIFFon BASOPHILS ABSOLUTE AUTO 0 [facility] Basophils/100 WBC (Bld) 0.2 % 0.2 - 2.0 % [facility] Eosinophils/100 WBC (Bld) 0.6 % Low 0.9 - 7.0 % [facility] Erythrocyte distribution width (RBC) [Ratio] 13.2 % 11.0 - 15.0 % [facility] Hematocrit (Bld) [Volume fraction] 35.5 % Low 36.0 - 48.0 % [facility] Hemoglobin (Bld) [Mass/Vol] 12.1 g/dL 12.0 - 16.0 g/dL [facility] IMMATURE GRANULOCYTES ABS AUTO 0.09 High [facility] Immature granulocytes/100 WBC (Bld) 1 % High 0.0 - 0.5 % [facility] Interpretation and review of laboratory results Abnormal [facility] re LYMPHOCYTES ABSOLUTE AUTO 1.1 Low [facility] Lymphocytes/100 WBC (Bld) 12.2 % Low 20.5 - 60.0 % [facility] MCH (RBC) [Entitic mass] 28.2 pg 26.7 - 34.0 pg [facility] MCHC (RBC) [Mass/Vol] 34.1 g/dL 29.9 - 35.2 g/dL [facility] MCV (RBC) [Entitic vol] 82.8 fL 81.0 - 99.0 fL [facility] MONOCYTES ABSOLUTE AUTO 0.5 [facility] Monocytes/100 WBC (Bld) 5.4 % 1.7 - 12.0 % [facility] NEUTROPHILS ABSOLUTE AUTO 7.1 High [facility] Neutrophils/100 WBC (Bld) 80.6 % High 43.0 - 75.0 % [facility] Platelet mean volume (Bld) [Entitic vol] 9.8 fL 9.5 - 13.5 fL [facility] TBH EO # 0.1 [facility] Healthcar e TBH PLT 292 [facility] Healthcar e TBH RBC 4.29 [facility] Healthcar e TBH WBC 8.9 [facility] Healthcar e [facility] Healthcar e GLUCOSE 1 HOURon 08-30-2024 Glucose [Mass/Vol] 129 mg/dL NINF - 13 0 mg/dL [facility] Health[facility] e Urinalysis macro (dipstick) panel (U)on 08-07-2024 Bilirubin, UA Negative Negative - 4(70) +++ mg/dL [facility] Blood, UA Negative Negative - 50 Cameron/mcL [facility] Clarity, UA Clear [facility] Healthoh re Color, UA Yellow [facility] Healthcar e Glucose, UA Negative Negative - 1999(110) ++++ mg/dL [facility] Interpretation and review of laboratory results Normal [facility] re Ketones, UA Negative Negative - 160(16) ++++ mg/dL [facility] Leukocytes, UA Negative Negative - 500+++ Cynthia/mcL [facility] Nitrite, UA Negative Negative - Positive [facility] pH, UA 7 5 - 9 [facility] Healthcar e Protein, UA Negative Negative - 1999(20) ++++ mg/dL [facility] Spec Grav, UA 1.015 1 - 1.03 [facility] Urobilinogen, UA 0.2 0.2 - 12 mg/dL [facility] Coding Summary.on 03-07-2020 Coding Summary. CODING DATE: 03/07/2020 FINAL [facility] DSC STATUS: Home (Routine DC) PAYOR: Medicaid [...] Cheryl Glynn Date Saved: 03/07/2020 08:[address] [facility] Consent for Treatmenton 02-16 Consent for Treatment [id number] 0CD:127 Normal [facility] Discharge Instructionson Discharge Instructions [id number]. 00CD:127 Normal [facility] ED Clinical Summaryon 2019 ED Clinical Summary [place] [id number] ED Clinical Summary Person Information Name: ARLINE VASQUEZ Kiersten/[facility] Age: 19 Years : 2000 Sex: Female Language: Afghan PCP: Hailey CAR CNP Marital Status: Single Phone: [phone] Visit Id: Visit Reason: Foot laceration; FOOT [...] 13:34:43 03/06/2020 13:34:43 03/06/2020 13:34:43 ADDRESS: [address] [place] [id number] PHYS DOC NOTES: MEDICAL INFORMATION: Prescriptions Given: PATIENT EDUCATION INFORMATION: Instructions: Laceration Care, Adult Follow up: With: Address: When: Hailey CAR [address] [id number] [employer] (1) In 3 days 03/09/2020 Comments: 10 days for suture removal DIAGNOSIS: Laceration of left foot Normal [facility] ED Note-Physicianon 03-06-20 ED Note-Physician Basic [...] In 3 days 03/09/[address]T [address] [id number] Business (1) Additional Instructions: 10 days for [...] case was discussed with: the physician assistant toddler teacher, Dannie Colin PA-C. Procedures: I directly supervised [...] fifth DIP joint, normal variant. Signed By: Raheme BOSE, Rhianna Ibarra [facility] Comment on above: Result Comment: Elec [...] the sutures are removed. ? Only take decg-nem-bgwwagz or prescription medicines for pain, discomfort, or [...] Document Reviewed: 03/29/2012 ExitCare? Patient Information ?2015 [employer]. This information is not intended to replace advice given to you by your health care provider. Make sure you discuss any questions you have with your health care provider. Normal [facility] ED Patient Summaryon 020 ED Patient Summary [address] [address] Patient Discharge Instructions Person Information Name: ARLINE VASQUEZ Age: 19 Years Arrival Date: 03/06/2020 11:49:56 Discharge Diagnosis: Laceration of left foot Primary Care Physician: Hailey CAR CNP Provider Information Primary Provider: Emilie Hill DO Advanced Violin Mechanic:Dannie Colin PA-C The exam and treatment you received in the Emergency Department were for an urgent problem and are not intended as complete care. It is important that you follow up with a doctor, nurse practitioner, or physician?s assistant toddler teacher for ongoing care. If your symptoms become [...] With: Address: When: Hailey CAR [address] [phone] [employer] (1) In 3 days 03/09/2020 Comments: [...] opioids can be used to help relieve atgvuggc-kc-ityhbl pain and are often prescribed following a [...] be struggling with addiction, tell your health continuum of care manager and ask for guidance or call [facility] National Helpline at 1-982-769-ZOTE. a Source: US Department of Health and Human Services/Center for Disease Control & Prevention [facility] Medications Given: Medication Dose Route lidocaine 10.00 mg SubCutaneous Left Foot Medication Information: Comment: Pharmacy Information: Thank you for choosing [facility] Patient Education Materials: Laceration Care, Adult [...] the sutures are removed. ? Only take rbrn-rdw-cgorbhl or prescription medicines for pain, discomfort, or [...] Document Reviewed: 03/29/2012 ExitCare? Patient Information ?2014 [employer]. This information is not intended to replace advice given to you by your health care provider. Make sure you discuss any questions you have with your health care provider. LOI Mae CYDNEY C , have received the following patient education materials/instructions and have verbalized understanding: Patient Education Materials: Laceration Care, Adult Follow-up Instructions: With: Address: When: Hailey CAR [address] [place], [place] [phone] [employer] (1) In 3 days 03/09/2020 Comments: 10 days for suture removal Patient Signature Date Clinician/Nurse Signature ___ Date 03/06/2020 13:34:45 Normal [facility] Prescriptions/Work Noteson 0 03-06-2020 Prescriptions/Work Notes [id number]. [id number]:127 Normal [facility] XR Foot 3+ Views Lefton 052 [...] MD Transcribed by: RENETTA Technologist: JOLANTA Moore [facility] Coding Summary.on 06-03-2019 Coding Summary. CODING DATE: 06/03/2019 FINAL [facility] DSC STATUS: Home (Routine DC) PAYOR: Medicaid [...] Bourne Date Saved: 06/03/2019 10:40 am Normal [facility] BMPon 05-31-2019 Anion gap [Moles/Vol] 16 mmol/L Normal 6-16 [facility] Comment on above: Performed By: #### 2 [id number], [id number] #### [facility] [address] [place] [address] Calcium [Mass/Vol] 9.6 mg/dL Normal 8.9-11.1 [facility] Comment on above: Performed By: #### 2 [id number], [id number] #### [facility] [address] [place] [address] Chloride [Moles/Vol] 104 mmol/L Normal 101-111 [facility] Comment on above: Performed By: #### 2 [id number], [id number] #### [facility] [address] [place] [address] CO2 [Moles/Vol] 22 mmol/L Normal 21-31 [facility] Comment on above: Performed By: #### 2 [id number], [id number] #### [facility] [address] [place] [address] Creatinine [Mass/Vol] 0.7 mg/dL Normal 0.5-1.3 [facility] Comment on above: Performed By: #### 2 [id number], [id number] #### [facility] [address] [place] [address] Glucose [Mass/Vol] 92 mg/dL Normal 55-199 [facility] Comment on above: Result Comment: If t his glucose result represents a fasting glucose, interpretation should refer to the following reference range: 55-99 mg/dL Performed By: #### 2 [id number], [id number] #### [facility] [address] [place] [address] Potassium [Moles/Vol] 4.2 mmol/L Normal 3.5-5.3 [facility] Comment on above: Performed By: #### 2 985997, [id number] #### [facility] [address] [place] [address] Sodium [Moles/Vol] 138 mmol/L Normal 135-145 [facility] Comment on above: Performed By: #### 2 [id number], [id number] #### [facility] [address] [place] [address] Urea nitrogen [Mass/Vol] 14 mg/dL Normal 5-21 [facility] Comment on above: Performed By: #### 2 [id number], [id number] #### [facility] [address] [place] [address] Urea nitrogen/Creatinine [Mass ratio] 20 No Units Normal 10-20 [facility] Comment on above: Performed By: #### 2 [id number], [id number] #### [facility] [address] [place] [address] Lipid Panelon 05-31-2019 Cholesterol in LDL [Mass/Vol] 127 mg/dL Normal <=129 [facility] Comment on above: Performed By: #### 2 [id number], [id number] #### [facility] [address] [place] [address] Cholesterol [Mass/Vol] 186 mg/dL Normal 120-200 [facility] Comment on above: Performed By: #### 2 822134, [id number] #### [facility] [address] [place] [address] Cholesterol in HDL [Mass/Vol] 34 mg/dL [facility] Comment on above: Result Comment: HDL > or equal to 60 mg/dL: Low cardiovascular risk HDL < 40 mg/dL : High cardiovascular risk Performed By: #### 2 [id number], [id number] #### [facility] [address] [place] [address] Cholesterol in VLDL [Mass/Vol] 51 mg/dL High 7-40 [facility] Comment on above: Performed By: #### 2 [id number], [id number] #### [facility] [address] [place] [address] Triglyceride [Mass/Vol] 256 mg/dL High <=149 [facility] Comment on above: Performed By: #### 2 [id number], [id number] #### [facility] [address] [place] [address] Vital Signs Date Time Vital Sign Value Performing Clinician Jasiel berg 11-07-2024 10:42-0500 Body weight 106.59 kg Flora Rogelio DO Work Phone: [facility] 11-07-2024 10:42-0500 Diastolic blood pressure 78 mm[Hg] Flora Rogelio DO Work Phone: [facility] 11-07-2024 10:42-0500 Systolic blood pressure 126 mm[Hg] Flora Rogelio DO Work Phone: [facility] 10-31-2024 10:02-0500 Body weight 107.86 kg Flora Rogelio DO Work Phone: [facility] 10-31-2024 10:02-0500 Diastolic blood pressure 80 mm[Hg] Flora Rogelio DO Work Phone: [facility] 10-31-2024 10:02-0500 Systolic blood pressure 126 mm[Hg] Flora Rogelio DO Work Phone: [facility] 10-02-2024 09:24-0500 Body weight 104.78 kg Flora Rogelio DO Work Phone: [facility] 10-02-2024 09:24-0500 Diastolic blood pressure 72 mm[Hg] Flora Rogelio DO Work Phone: [facility] 10-02-2024 09:24-0500 Systolic blood pressure 124 mm[Hg] Flora Rogelio DO Work Phone: [facility] 09-11-2024 09:32-0500 Body weight 101.61 kg Flora Rogelio DO Work Phone: [facility] 09-11-2024 09:32-0500 Diastolic blood pressure 60 mm[Hg] Flora Rogelio DO Work Phone: [facility] 09-11-2024 09:32-0500 Systolic blood pressure 100 mm[Hg] Flora Rogelio DO Work Phone: [facility] 08-07-2024 14:18-0400 Body weight 98.43 kg Flora Rogelio DO Work Phone: [facility] 08-07-2024 14:18-0400 Diastolic blood pressure 74 mm[Hg] Flora Rogelio DO Work Phone: [facility] 08-07-2024 14:18-0400 Systolic blood pressure 112 mm[Hg] Flora Rogelio DO Work Phone: [facility] Healthcare Encounters Encounter Date Encounter Type Care Provider Facility Start: 11-07-2024 End: 11-07-2024 Bamboo flowsheet Flora Rogelio DO Work Phone: [facility] Start: 11-07-2024 End: 11-07-2024 Bamboo flowsheet Flora Rogelio DO Work Phone: [facility] Start: 11-07-2024 End: 11-07-2024 ambulatory FLROA ROGELIO Not Available Start: 11-07-2024 End: 11-07-2024 [...] flow sheet Flora Rogelio DO Work Phone: [facility] Comment on above: 29 weeks [...] flow sheet Flora Rogelio DO Work Phone: [facility] Comment on above: Second trimester [...] Routine [facility] [address] [place] [address] Flora Mercado, DO [address] [place] [address] [facility] Start: 11-07-2024 End: 11-07-2024 Patient encounter procedure 11/07/2024 10:10 AM EST Routine [facility] [address] [place] [address] Flora Mercado, DO [address] [place] [address] [facility] Start: 10-31-2024 End: 10-31-2025 CULTURE, GROUP B STREP WITH SUSCEPTIBLITY CULTURE, GROUP B STREP WITH SUSCEPTIBLITY Lab Routine Third trimester Expected: 10/31/2024, Expires: 10/31/2025 [facility] Work Phone: Comment on above: Expected: 10/31/2024 , Expires: 10/31/2025 Start: 10-31-2024 End: 10-31-2024 Patient encounter procedure 10/31/2024 9:20 AM EST Routine [facility] [address] [place] [id number] Flora Mercado, DO [address] [place] [address] [facility] Start: 10-23-2024 End: 10-23-2024 Patient encounter procedure 10/23/2024 9:00 AM EST Routine [facility] [address] [place] [address] Flora Mercado, DO [address] [place] [address] [facility] Start: 10-02-2024 End: 10-02-2024 Patient encounter procedure [facility] Comment on above: Arrived Start: 10-02-2024 End: 10-02-2024 Professional / ancillary services management 10/02/2024 8:30 AM EST Ancillary Procedure [facility] [address] [place] [address] [facility] Start: 09-11-2024 End: 09-11-2025 US for US OB SCAN FOR GROWTH Imaging Routine Excessive growth affecting management of , antepartum, single or unspecified fetus Expected: 09/11/2024 (Approximate), Expires: 09/11/2025 [facility] Work Phone: Comment on above: Expected: 09/11/2024 (Approximate), Expires: 09/11/2025 Start: 09-11-2024 End: 09-11-2024 Patient encounter procedure 09/11/2024 8:50 AM EST Routine [facility] [address] [place] [address] Flora Mercado, DO [address] [place] [address] [facility] Start: 08-07-2024 End: 08-07-2025 CBC panel - Blood by Automated count CBC Lab Routine Diabetes mellitus screening Expected: 08/07/2024 (Approximate), Expires: 08/07/2025 [facility] Work Phone: Comment on above: Expected: 08/07/2024 (Approximate), Expires: 08/07/2025 Start: 08-07-2024 End: 08-07-2025 Measurement of glucose 1 hour after glucose challenge for glucose tolerance test Glucose tolerance, 1 hour Lab Routine Diabetes mellitus screening Expected: 08/07/2024 (Approximate), Expires: 08/07/2025 [facility] Comment on above: Expected: 08/07/2024 (Approximate), Expires: 08/07/2025 Start: 08-07-2024 End: 08-07-2024 Patient encounter procedure 08/07/2024 1:50 PM EDT Routine [facility] [address] [place] [address] Flora Mercado, DO [address], [place] [id number] Arrived [facility] Comment on above: Arrived Start: 06-18-2024 Influenza vaccination Influenza Vacc ine (#1) [facility] Hepatitis C virus Ab [Presence] in Serum or Plasma by Immunoassay Hepatitis C antibody Lab Routine , unspecified gestational age Ordered: 08/07/2024 [facility] Comment on above: Ordered: 08/07/2024 Payers Date Payer Category Payer Private Health Insurance [employer] Member Subscriber Plan / Payer (Effective 2024-Present) Name: Arline Vasquez Relation to Subscriber: Self Name: Arline Vasquez Payer ID: Not on file Type: Not on file Address: [place] [id number] 2024 Unknown [id number] 2001 Unknown [id number] [id number]. 1258 2001 Unknown [id number] [id number]. 1258 2001 Unknown [id number] [id number]. 1258 2001 Unknown [id number] [id number]. 9 2001 Unknown [id number] 2.16.840.1.523947.3.579.2. 1258 2001 Unknown [id number] 2.16.840.1.572168.3.579.2. 1258 2001 Unknown [id number] [id number]. 1258 2001 Unknown [id number] 2.16.840.1.889101.3.579.2. 1258 2001 Unknown [id number] 2.16.840.1.358299.3.579.2. 1258 2001 Unknown [id number] [id number]. 1259 Social History Date Type Detail Facility Start: [facility]-05-2024 [facility] Start: 04-05-2024 [...] nursing note reviewed. Exam conducted with a glass installer technician present. Vitals: Estimated body mass index is [...] nursing note reviewed. Exam conducted with a glass installer technician present. Vitals: Estimated body mass index is [...] nursing note reviewed. Exam conducted with a glass installer technician present. Vitals: Estimated body mass index is [...] Flora Mercado DO documented in this encounter [facility] History of Present illness Narrative 08-07-2024 [...] nursing note reviewed. Exam conducted with a glass installer technician present. Vitals: Estimated body mass index is [...] gestation. Order will be sent to [facility] to be pre-certed and scheduled. Patient to return to clinic in 4 weeks for routine OB care appointment. Patient declined genetic testing previously in the . Patient has complaints of round ligament pain. Documented by Danielle Pineda LPN on behalf of: Flora Mercado DO documented in this encounter [facility] Evaluation note Note Date & Type Note Facility Evaluation note Diagnosis Second trimester state, incidental Diabetes mellitus screening Screening for diabetes mellitus , unspecified gestational age 24 weeks gestation of documented in this encounter [facility] Evaluation note Note Date & Type Note Facility Evaluation note Diagnosis 29 weeks gestation of Third trimester state, incidental Excessive growth affecting management of , antepartum, single or unspecified fetus documented in this encounter [facility] Evaluation note Note Date & Type Note Facility Evaluation note Diagnosis 32 weeks gestation of Third trimester state, incidental documented in this encounter [facility] Evaluation note Note Date & Type [...] and content) DATE CREATED AUTHOR 03/19/2020 Alberto Hanover [facility] DATE CREATED AUTHOR AUTHOR'S ORGANIZ ATION 11/08/2024 [facility] Care Teams (unrecognized sec tion and content) Single Spindle Screw Machine Operator Relationship Specialty Start Date End Date Kang Alfaro MD [address] [place] [address] PCP - [facility] 02/23/23 Kang Alfaro MD [address] [place] [address] PCP - [facility] 04/17/24 Single Spindle Scre[employer] Machine Operator Relationship Specialty Start Date End Date Kang Alfaro MD [address] [place] [address] PCP - [facility] 02/23/23 Kang Alfaro MD [address] [place] [address] PCP - [facility] 04/17/24 Single Spindle Screw Machine Operator Relationship Specialty Start Date End Date Kang Alfaro MD [address] [place] [address] PCP - [facility] 02/23/23 Single Spindle Screw Machine Operator Relationship Specialty Start Date End Date Kang Alfaro MD [address] [place] [address] PCP - [facility] 02/23/23 Single Spindle Screw Machine Operator Relationship Specialty Start Date End Date Kang Alfaro MD [address] [place] [address] PCP - General Family Medicine 02/23/23 Single Spindle Screw Machine Operator Relationship Specialty Start Date End Date Kang Alfaro MD [address] [place] [address] PCP - General Family Medicine 02/23/23 Single Spindle Screw Machine Operator Relationship Specialty Start Date End Date Kang Alfaro MD [address] [place] [address] PCP - General [facility] 02/23/23 Single Spindle Screw Machine Operator Relationship Specialty Start Date End Date Kang Alfaro MD [address] [place] [address] PCP - General Family Medicine 02/23/23 Reason [...] BE BASED ON THE PRIMARY CLINICAL RECORDS. [employer] provides no warranty or guarantee of the accuracy or completeness of information in this document.
--- OUTSIDE RECORDS SUMMARY | 2024-11-14 16:15 | XMS_ITS | CCD ---
Author Organization [facility] Care Team Providers Care Wireline Field Operator Name Role Phone Kang Alfaro MD Primary Care Provider [phone] Kang Alfaro MD Unavailable FLORA MERCADO Attending [...] [facility] Comment on above: Test Ordered: [id number] Strep Gp B Culture+Rflx Strep Gp B Culture+Rflx Positive [A ] CB Reference Range: Negative Centers for Disease Control and Prevention (CDC) and [place] Congress of Obstetricians and Gynecologists (ACOG) guidelines [...] at high risk for anaphylaxis. Performed at: [address] [id number] Train Controller: Tank Ureña PhD, Phone: [phone] GROUP B STREP [id number] Group B Streptococcus Colonization Detection Culture With Re [facility] Urinalysis macro (dipstick) panel (U)on 10-31-2024 Bilirubin, UA Negative Negative - 4(70) +++ mg/dL [facility] Healthcare Blood, UA Negative Negative - 50 Cameron/mcL [facility] Healthcare Clarity, UA Clear [facility] Color, UA Yellow [facility] Glucose, UA Negative Negative - 1999(110) ++++ mg/dL [facility] Interpretation and review of laboratory results Abnormal [facility] Ketones, UA Negative Negative - 160(16) ++++ mg/dL [facility] Healthcare Leukocytes, UA Trace Negative - 500+++ Cynthia/mcL [facility] Healthcare Nitrite, UA Negative Negative - Positive [facility] Healthcare pH, UA 7 5 - 9 [facility] Protein, UA Negative Negative - 1999(20) ++++ mg/dL [facility] Healthcare Spec Grav, UA 1.015 1 - 1.03 [facility] Health care Urobilinogen, UA 0.2 0.2 - 12 mg/dL [facility] Urinalysis macro (dipstick) panel (U)on 10-02-2024 Bilirubin, UA Negative Negative - 4(70) +++ mg/dL [facility] Blood, UA Negative Negative - 50 Cameron/mcL [facility] Healthcare Clarity, UA Clear [facility] Color, UA Yellow [facility] e Glucose, UA Negative Negative - 1999(110) ++++ mg/dL [facility] Interpretation and review of laboratory results Abnormal [facility] Ketones, UA Negative Negative - 160(16) ++++ mg/dL [facility] Healthcare Leukocytes, UA Trace Negative - 500+++ Cynthia/mcL [facility] Healthcare Nitrite, UA Negative Negative - Positive [facility] pH, UA 6.5 5 - 9 [facility] Protein, UA Negative Negative - 1999(20) ++++ mg/dL [facility] Healthcare Spec Grav, UA 1.015 1 - 1.03 [facility] care Urobilinogen, UA 0.2 0.2 - 12 mg/dL [facility] Urinalysis macro (dipstick) panel (U)on 09-11-2024 Bilirubin, UA Negative Negative - 4(70) +++ mg/dL [facility] Healthcare Blood, UA Negative Negative - 50 Cameron/mcL [facility] Healthcare Clarity, UA Clear [facility] Color, UA Yellow [facility] Glucose, UA Negative Negative - 1999(110) ++++ mg/dL [facility] Interpretation and review of laboratory results Normal [facility] Ketones, UA Negative Negative - 160(16) ++++ mg/dL [facility] Leukocytes, UA Negative Negative - 500+++ Cynthia/mcL [facility] Nitrite, UA Negative Negative - Positive [facility] pH, UA 7 5 - 9 [facility] e Protein, UA Negative Negative - 1999(20) ++++ mg/dL [facility] Spec Grav, UA 1.02 1 - 1.03 [facility] Urobilinogen, UA 0.2 0.2 - 12 mg/dL [facility] Health[facility] e HCV ANTIBODY RFX TO QUANT PC Hieu 08-31-2024 HCV AB Non-Reactive Non Reactive [facility] hcare INTERPRETATION: Comment . [facility] thcare Comment on above: Not infected with HC V unless early or acute infection is suspected (which may be delayed in an immunocompromised individual), or other evidence exists to indicate HCV infection. Performed at: - [facility] [id number] Train Controller: Tank Ureña PhD, Phone: [phone] [facility] e ALL CBC WITH AUTO DIFFon BASOPHILS ABSOLUTE AUTO 0 [facility] Basophils/100 WBC (Bld) 0.2 % 0.2 - 2.0 % [facility] Eosinophils/100 WBC (Bld) 0.6 % Low 0.9 - 7.0 % [facility] Erythrocyte distribution width (RBC) [Ratio] 13.2 % 11.0 - 15.0 % [facility] Hematocrit (Bld) [Volume fraction] 35.5 % Low 36.0 - 48.0 % [facility] Hemoglobin (Bld) [Mass/Vol] 12.1 g/dL 12.0 - 16.0 g/dL [facility] IMMATURE GRANULOCYTES ABS AUTO 0.09 High [facility] Immature granulocytes/100 WBC (Bld) 1 % High 0.0 - 0.5 % [facility] Interpretation and review of laboratory results Abnormal [facility] re LYMPHOCYTES ABSOLUTE AUTO 1.1 Low [facility] Lymphocytes/100 WBC (Bld) 12.2 % Low 20.5 - 60.0 % [facility] MCH (RBC) [Entitic mass] 28.2 pg 26.7 - 34.0 pg [facility] MCHC (RBC) [Mass/Vol] 34.1 g/dL 29.9 - 35.2 g/dL [facility] MCV (RBC) [Entitic vol] 82.8 fL 81.0 - 99.0 fL [facility] MONOCYTES ABSOLUTE AUTO 0.5 [facility] Monocytes/100 WBC (Bld) 5.4 % 1.7 - 12.0 % [facility] NEUTROPHILS ABSOLUTE AUTO 7.1 High [facility] Neutrophils/100 WBC (Bld) 80.6 % High 43.0 - 75.0 % [facility] Platelet mean volume (Bld) [Entitic vol] 9.8 fL 9.5 - 13.5 fL [facility] TBH EO # 0.1 [facility] Healthcar e TBH PLT 292 [facility] Healthcar e TBH RBC 4.29 [facility] Healthcar e TBH WBC 8.9 [facility] Healthcar e [facility] Healthcar e GLUCOSE 1 HOURon 08-30-2024 Glucose [Mass/Vol] 129 mg/dL NINF - 13 0 mg/dL [facility] Health[facility] e Urinalysis macro (dipstick) panel (U)on 08-07-2024 Bilirubin, UA Negative Negative - 4(70) +++ mg/dL [facility] Blood, UA Negative Negative - 50 Cameron/mcL [facility] Clarity, UA Clear [facility] Healthpa re Color, UA Yellow [facility] Healthcar e Glucose, UA Negative Negative - 1999(110) ++++ mg/dL [facility] Interpretation and review of laboratory results Normal [facility] re Ketones, UA Negative Negative - 160(16) ++++ mg/dL [facility] Leukocytes, UA Negative Negative - 500+++ Cynthia/mcL [facility] Nitrite, UA Negative Negative - Positive [facility] pH, UA 7 5 - 9 [facility] Healthcar e Protein, UA Negative Negative - 1999(20) ++++ mg/dL [facility] Spec Grav, UA 1.015 1 - 1.03 [facility] Urobilinogen, UA 0.2 0.2 - 12 mg/dL [facility] Coding Summary.on 03-07-2020 Coding Summary. CODING DATE: 03/07/2020 FINAL [facility] DSC STATUS: Home (Routine DC) PAYOR: [...] Cheryl Glynn Date Saved: 03/07/2020 08:16 am [facility] Consent for Treatmenton 02-16 Consent for Treatment [id number] 0CD:127 Normal [facility] Discharge Instructionson Discharge Instructions [id number]. [id number]:127 Normal [facility] ED Clinical Summaryon 2019 ED Clinical Summary [place] [id number] ED Clinical Summary Person Information Name: ARLINE VASQUEZ Kiersten/[facility] Age: 19 Years : 2000 Sex: Female Language: Filipino PCP: Hailey CAR CNP Marital Status: Single Phone: [phone] Visit Id: Visit Reason: Foot laceration; FOOT [...] 03/06/2020 13:34:43 03/06/2020 13:34:43 03/06/2020 13:34:43 ADDRESS: [address] [place] [id number] PHYS DOC NOTES: MEDICAL INFORMATION: Prescriptions Given: PATIENT EDUCATION INFORMATION: Instructions: Laceration Care, Adult Follow up: With: Address: When: Hailey CAR [address] [place] [id number] [employer] (1) In 3 days 03/09/2020 Comments: 10 days for suture removal DIAGNOSIS: Laceration of left foot Normal [facility] ED Note-Physicianon 03-06-20 ED Note-Physician Basic [...] In 3 days 03/09/2020 EDT [address] [id number] Business (1) Additional Instructions: 10 days for [...] The case was discussed with: the physician bar assistant, Dannie Colin PA-C. Procedures: I directly [...] variant. Signed By: Raheem BOSE, Rhianna Ibarra [facility] Comment on above: Result Comment: [...] the sutures are removed. ? Only take ieye-mpk-fnjgied or prescription medicines for pain, discomfort, or [...] Document Reviewed: 03/29/2012 ExitCare? Patient Information ?2015 [employer]. This information is not intended to replace advice given to you by your health care provider. Make sure you discuss any questions you have with your health care provider. Normal [facility] ED Patient Summaryon 020 ED Patient Summary [address] [address] Patient Discharge Instructions Person Information Name: ARLINE VASQUEZ Age: 19 Years Arrival Date: 03/06/2020 11:49:56 Discharge Diagnosis: Laceration of left foot Primary Care Physician: Hailey CAR CNP Provider Information Primary Provider: Emilie Hill DO Advanced Inspector Watch Train:Dannie Colin PA-C The exam and treatment you received in the Emergency Department were for an urgent problem and are not intended as complete care. It is important that you follow up with a doctor, nurse practitioner, or physician?s bar assistant for ongoing care. If your symptoms [...] With: Address: When: Hailey CAR [address] [phone] Business (1) In 3 days 03/09/2020 Comments: [...] opioids can be used to help relieve ysoeoqdj-fi-ymfnql pain and are often prescribed following a [...] with addiction, tell your health critical care transport nurse and ask for guidance or call [facility] National Helpline at 3-853-221-HUDG. n Source: US Department of Health and Human Services/Center for Disease Control & Prevention [facility] Medications Given: Medication Dose Route lidocaine 10.00 mg SubCutaneous Left Foot Medication Information: Comment: Pharmacy Information: Thank you for choosing [facility] Patient Education Materials: Laceration Care, Adult A [...] the sutures are removed. ? Only take awzi-vle-vuuvzla or prescription medicines for pain, discomfort, or [...] Document Reviewed: 03/29/2012 ExitCare? Patient Information ?2014 [employer]. This information is not intended to replace advice given to you by your health care provider. Make sure you discuss any questions you have with your health care provider. LOI Mae CYDNEY C , have received the following patient education materials/instructions and have verbalized understanding: Patient Education Materials: Laceration Care, Adult Follow-up Instructions: With: Address: When: Hailey CAR [address] [place], [place] [id number] Business (1) In 3 days 03/09/2020 Comments: 10 days for suture removal Patient Signature Date Clinician/Nurse Signature ___ Date 03/06/2020 13:34:45 Normal [facility] Prescriptions/Work Noteson 0 03-06-2020 Prescriptions/Work Notes [id number]:127 Normal [facility] XR Foot 3+ Views Lefton 052 [...] MD Transcribed by: RENETTA Technologist: JOLANTA Moore [facility] Coding Summary.on 06-03-2019 Coding Summary. CODING DATE: 06/03/2019 FINAL [facility] DSC STATUS: Home (Routine DC) PAYOR: [...] Bourne Date Saved: 06/03/2019 10:40 am Normal [facility] BMPon 05-31-2019 Anion gap [Moles/Vol] 16 mmol/L Normal 6-16 [facility] Comment on above: Performed By: #### 2 [id number], [id number] #### [facility] Laboratory [address] [place] [address] Calcium [Mass/Vol] 9.6 mg/dL Normal 8.9-11.1 [facility] Comment on above: Performed By: #### 2 [id number], [id number] #### [facility] [address] [place] [address] Chloride [Moles/Vol] 104 mmol/L Normal 101-111 [facility] Comment on above: Performed By: #### 2 [id number], [id number] #### [facility] [address] [place] [address] CO2 [Moles/Vol] 22 mmol/L Normal 21-31 [facility] Comment on above: Performed By: #### 2 [id number], [id number] #### [facility] [address] [place] [address] Creatinine [Mass/Vol] 0.7 mg/dL Normal 0.5-1.3 [facility] Comment on above: Performed By: #### 2 [id number], [id number] #### [facility] [address] [place] [address] Glucose [Mass/Vol] 92 mg/dL Normal 55-199 [facility] Comment on above: Result Comment: If t his glucose result represents a fasting glucose, interpretation should refer to the following reference range: 55-99 mg/dL Performed By: #### 2 [id number], [id number] #### [facility] [address] [place] [address] Potassium [Moles/Vol] 4.2 mmol/L Normal 3.5-5.3 [facility] Comment on above: Performed By: #### 2 [id number], [id number] #### [facility] [address] [place] [address] Sodium [Moles/Vol] 138 mmol/L Normal 135-145 [facility] Comment on above: Performed By: #### 2 [id number], [id number] #### [facility] [address] [place] [address] Urea nitrogen [Mass/Vol] 14 mg/dL Normal 5-21 [facility] Comment on above: Performed By: #### 2 [id number], [id number] #### [facility] [address] [place] [address] Urea nitrogen/Creatinine [Mass ratio] 20 No Units Normal 10-20 [facility] Comment on above: Performed By: #### 2 [id number], [id number] #### [facility] [address] [place] [address] Lipid Panelon 05-31-2019 Cholesterol in LDL [Mass/Vol] 127 mg/dL Normal <=129 [facility] Comment on above: Performed By: #### 2 [id number], [id number] #### [facility] [address] [place] [address] Cholesterol [Mass/Vol] 186 mg/dL Normal 120-200 [facility] Comment on above: Performed By: #### 2 [id number], [id number] #### [facility] [address] [place] [address] Cholesterol in HDL [Mass/Vol] 34 mg/dL [facility] Comment on above: Result Comment: HDL > or equal to 60 mg/dL: Low cardiovascular risk HDL < 40 mg/dL : High cardiovascular risk Performed By: #### 2 [id number], [id number] #### [facility] [address] [place] [address] Cholesterol in VLDL [Mass/Vol] 51 mg/dL High 7-40 [facility] Comment on above: Performed By: #### 2 [id number], [id number] #### [facility] [address] [place] [address] Triglyceride [Mass/Vol] 256 mg/dL High <=149 [facility] Comment on above: Performed By: #### 2 [id number], [id number] #### [facility] [address] [place] [address] Vital Signs Date Time Vital Sign Value Performing Clinician Jasiel berg 11-07-2024 10:42-0500 Body weight 106.59 kg Flora Rogelio DO Work Phone: [facility] 11-07-2024 10:42-0500 Diastolic blood pressure 78 mm[Hg] Flora Rogelio DO Work Phone: [facility] 11-07-2024 10:42-0500 Systolic blood pressure 126 mm[Hg] Flora Rogelio DO Work Phone: [facility] 10-31-2024 10:02-0500 Body weight 107.86 kg Flora Rogelio DO Work Phone: [facility] 10-31-2024 10:02-0500 Diastolic blood pressure 80 mm[Hg] Flora Rogelio DO Work Phone: [facility] 10-31-2024 10:02-0500 Systolic blood pressure 126 mm[Hg] Flora Rogelio DO Work Phone: [facility] 10-02-2024 09:24-0500 Body weight 104.78 kg Flora Rogelio DO Work Phone: [facility] 10-02-2024 09:24-0500 Diastolic blood pressure 72 mm[Hg] Flora Rogelio DO Work Phone: [facility] 10-02-2024 09:24-0500 Systolic blood pressure 124 mm[Hg] Flora Rogelio DO Work Phone: [facility] 09-11-2024 09:32-0500 Body weight 101.61 kg Flora Rogelio DO Work Phone: [facility] 09-11-2024 09:32-0500 Diastolic blood pressure 60 mm[Hg] Flora Rogelio DO Work Phone: [facility] 09-11-2024 09:32-0500 Systolic blood pressure 100 mm[Hg] Flora Rogelio DO Work Phone: [facility] 08-07-2024 14:18-0400 Body weight 98.43 kg Flora Rogelio DO Work Phone: [facility] 08-07-2024 14:18-0400 Diastolic blood pressure 74 mm[Hg] Flora Rogelio DO Work Phone: [facility] 08-07-2024 14:18-0400 Systolic blood pressure 112 mm[Hg] Flora Rogelio DO Work Phone: [facility] Healthcare Encounters Encounter Date Encounter Type [...] Start: 10-31-2024 End: 11-07-2024 Bamboo flowsheet Flora Rogeilo DO Work Phone: [facility] Start: [...] flow sheet Flora Rogelio DO Work Phone: [facility] Comment on above: 29 weeks [...] flow sheet Flora Rogelio DO Work Phone: [facility] Comment on above: Second trimester [...] Routine [facility] [address] [place] [address] Flora Mercado, DO [address] [place] [address] [facility] Start: 11-07-2024 End: 11-07-2024 Patient encounter procedure 11/07/2024 10:10 AM EST Routine [facility] [address] [place] [id number] Flora Mercado, DO [address] [place] [address] [facility] Start: 10-31-2024 End: 10-31-2025 CULTURE, GROUP B STREP WITH SUSCEPTIBLITY CULTURE, GROUP B STREP WITH SUSCEPTIBLITY Lab Routine Third trimester Expected: 10/31/2024, Expires: 10/31/2025 [facility] Work Phone: Comment on above: Expected: 10/31/2024 , Expires: 10/31/2025 Start: 10-31-2024 End: 10-31-2024 Patient encounter procedure 10/31/2024 9:20 AM EST Routine [facility] [address] [place] [address] Flora Mercado, DO [address] [place] [address] [facility] Start: 10-23-2024 End: 10-23-2024 Patient encounter procedure 10/23/2024 9:00 AM EST Routine [facility] [address] [place] [address] Flora Mercado, DO [address] [place] [address] [facility] Start: 10-02-2024 End: 10-02-2024 Patient encounter procedure [facility] Comment on above: Arrived Start: 10-02-2024 End: 10-02-2024 Professional / ancillary services management 10/02/2024 8:30 AM EST Ancillary Procedure [facility] [address] [place] [id number] [facility] Start: 09-11-2024 End: 09-11-2025 US for US OB SCAN FOR GROWTH Imaging Routine Excessive growth affecting management of , antepartum, single or unspecified fetus Expected: 09/11/2024 (Approximate), Expires: 09/11/2025 [facility] Work Phone: Comment on above: Expected: 09/11/2024 (Approximate), Expires: 09/11/2025 Start: 09-11-2024 End: 09-11-2024 Patient encounter procedure 09/11/2024 8:50 AM EST Routine [facility] [address] [facility] [place] [address] Flora Mercado, DO [address] [place] [address] [facility] Start: 08-07-2024 End: 08-07-2025 CBC panel - Blood by Automated count CBC Lab Routine Diabetes mellitus screening Expected: 08/07/2024 (Approximate), Expires: 08/07/2025 [facility] Work Phone: Comment on above: Expected: 08/07/2024 (Approximate), Expires: 08/07/2025 Start: 08-07-2024 End: 08-07-2025 Measurement of glucose 1 hour after glucose challenge for glucose tolerance test Glucose tolerance, 1 hour Lab Routine Diabetes mellitus screening Expected: 08/07/2024 (Approximate), Expires: 08/07/2025 [facility] Comment on above: Expected: 08/07/2024 (Approximate), Expires: 08/07/2025 Start: 08-07-2024 End: 08-07-2024 Patient encounter procedure 08/07/2024 1:50 PM EDT Routine [facility] [address] [facility] [place] [address] Flora Mercado, DO [address], [place] [id number] Arrived [facility] Comment on above: Arrived Start: 06-18-2024 Influenza vaccination Influenza Vacc ine (#1) [facility] Hepatitis C virus Ab [Presence] in Serum or Plasma by Immunoassay Hepatitis C antibody Lab Routine , unspecified gestational age Ordered: 08/07/2024 [facility] Comment on above: Ordered: 08/07/2024 Payers Date Payer Category Payer Private Health Insurance [employer] Member Subscriber Plan / Payer (Effective 2024-Present) Name: Arline Vasquez Relation to Subscriber: Self Name: Arline Vasquez Payer ID: Not on file Type: Not on file Address: [place] [id number] 2024 Unknown [id number] 2001 Unknown [id number] [id number]. 1258 2001 Unknown [id number] [id number]. 1258 2001 Unknown [id number] [id number]. 1258 2001 Unknown [id number] [id number]. 9 2001 Unknown [id number] 2.16.840.1.452939.3.579.2. 1258 2001 Unknown [id number] [id number]. 1258 2001 Unknown [id number] 2.16.840.1.975906.3.579.2. 1258 2001 Unknown [id number] 2.16.840.1.924408.3.579.2. 1258 2001 Unknown [id number] 2.16.840.1.922953.3.579.2. 1258 2001 Unknown [id number] [id number]. 1259 Social History Date Type Detail Facility Start: [facility]24 [facility] Start: [...] nursing note reviewed. Exam conducted with a director cloud transformation present. Vitals: Estimated body mass index is [...] nursing note reviewed. Exam conducted with a director cloud transformation present. Vitals: Estimated body mass index is [...] nursing note reviewed. Exam conducted with a director cloud transformation present. Vitals: Estimated body mass index is [...] Flora Mercado DO documented in this encounter [facility] Healthcare History of Present illness Narrative 08-07-2024 [...] nursing note reviewed. Exam conducted with a director cloud transformation present. Vitals: Estimated body mass index is [...] gestation. Order will be sent to [facility] to be pre-certed and scheduled. Patient to return to clinic in 4 weeks for routine OB care appointment. Patient declined genetic testing previously in the . Patient has complaints of round ligament pain. Documented by Danielle Pineda LPN on behalf of: Flora Mercado DO documented in this encounter [facility] Healthcare Evaluation note Note Date & Type Note Facility Evaluation note Diagnosis Second trimester state, incidental Diabetes mellitus screening Screening for diabetes mellitus , unspecified gestational age 24 weeks gestation of documented in this encounter [facility] Healthcare Evaluation note Note Date & Type Note Facility Evaluation note Diagnosis 29 weeks gestation of Third trimester state, incidental Excessive growth affecting management of , antepartum, single or unspecified fetus documented in this encounter [facility] Healthcare Evaluation note Note Date & Type Note Facility Evaluation note Diagnosis 32 weeks gestation of Third trimester state, incidental documented in this encounter [facility] Healthcare Evaluation note Note Date & Type [...] and content) DATE CREATED AUTHOR 03/19/2020 [facility]to [facility] DATE CREATED AUTHOR AUTHOR'S ORGANIZ ATION 11/08/2024 [facility] dical Specialists [facility] Care Teams (unrecognized sec tion and content) Wireline Field Operator Relationship Specialty Start Date End Date Kang Alfaro MD [address] [place] [address] PCP - [facility] 02/23/23 Kang Alfaro MD [address] [place] [address] PCP - [facility] 04/17/24 [employer]line Field Operator Relationship Specialty Start Date End Date Kang Alfaro MD [address] [place] [address] PCP - [facility] 02/23/23 Kang Alfaro MD [address] [place] [address] PCP - [facility] 04/17/24 Wireline Field Operator Relationship Specialty Start Date End Date Kang Alfaro MD [address] [place] [address] PCP - [facility] 02/23/23 Wireline Field Operator Relationship Specialty Start Date End Date Kang Alfaro MD [address] [place] [address] PCP - [facility] Medicine 02/23/23 Wireline Field Operator Relationship Specialty Start Date End Date Kang Alfaro MD [address] [place] [address] PCP - General Family Medicine 02/23/23 Wireline Field Operator Relationship Specialty Start Date End Date Kang Alfaro MD [address] [place] [address] PCP - General Family Medicine 02/23/23 Wireline Field Operator Relationship Specialty Start Date End Date Kang Alfaro MD [address] [place] [address] PCP - General [facility] Medicine 02/23/23 Wireline Field Operator Relationship Specialty Start Date End Date Kang Alfaro MD [address] [place] [address] PCP - General Family Medicine 02/23/23 Reason [...] BE BASED ON THE PRIMARY CLINICAL RECORDS. [employer] provides no warranty or guarantee of the accuracy or completeness of information in this document.
--- OUTSIDE RECORDS SUMMARY | 2024-11-14 16:16 | XMS_ITS | CCD ---
Author Organization [facility] Care Team Providers Care Distribution Designer Name Role Phone Kang Alfaro MD Primary Care Provider [phone] Kang Alfaro MD Unavailable [phone] FLORA MERCADO Attending Unavailable UNALLOCATED, [facility] PROVIDER [...] [facility] Comment on above: Test Ordered: [id number] Strep Gp B Culture+Rflx Strep Gp B Culture+Rflx Positive [A ] CB Reference Range: Negative Centers for Disease Control and Prevention (CDC) and [place] [employer] of Obstetricians and Gynecologists (ACOG) guidelines [...] at high risk for anaphylaxis. Performed at: [address] [id number] Meatcutter: Tank Ureña PhD, Phone: [phone] GROUP B STREP [id number] Group B Streptococcus Colonization Detection Culture With Re [facility] Urinalysis macro (dipstick) panel (U)on 10-31-2024 Bilirubin, UA Negative Negative - 4(70) +++ mg/dL [facility] Healthcare Blood, UA Negative Negative - 50 Cameron/mcL [facility] Healthcare Clarity, UA Clear [facility] Color, UA Yellow [facility] Glucose, UA Negative Negative - 1999(110) ++++ mg/dL [facility] Interpretation and review of laboratory results Abnormal [facility] Ketones, UA Negative Negative - 160(16) ++++ mg/dL [facility] Healthcare Leukocytes, UA Trace Negative - 500+++ Cynthia/mcL [facility] Healthcare Nitrite, UA Negative Negative - Positive [facility] Healthcare pH, UA 7 5 - 9 [facility] Protein, UA Negative Negative - 1999(20) ++++ mg/dL [facility] Healthcare Spec Grav, UA 1.015 1 - 1.03 [facility] Health care Urobilinogen, UA 0.2 0.2 - 12 mg/dL [facility] Urinalysis macro (dipstick) panel (U)on 10-02-2024 Bilirubin, UA Negative Negative - 4(70) +++ mg/dL [facility] Blood, UA Negative Negative - 50 Cameron/mcL [facility] Healthcare Clarity, UA Clear [facility] Color, UA Yellow [facility] Healthcar e Glucose, UA Negative Negative - 1999(110) ++++ mg/dL [facility] Interpretation and review of laboratory results Abnormal [facility] Ketones, UA Negative Negative - 160(16) ++++ mg/dL [facility] Healthcare Leukocytes, UA Trace Negative - 500+++ Cynthia/mcL [facility] Healthcare Nitrite, UA Negative Negative - Positive [facility] pH, UA 6.5 5 - 9 [facility] Protein, UA Negative Negative - 1999(20) ++++ mg/dL [facility] Healthcare Spec Grav, UA 1.015 1 - 1.03 [facility] care Urobilinogen, UA 0.2 0.2 - 12 mg/dL [facility] Urinalysis macro (dipstick) panel (U)on 09-11-2024 Bilirubin, UA Negative Negative - 4(70) +++ mg/dL [facility] Healthcare Blood, UA Negative Negative - 50 Cameron/mcL [facility] Healthcare Clarity, UA Clear [facility] Color, UA Yellow [facility] Glucose, UA Negative Negative - 1999(110) ++++ mg/dL [facility] Interpretation and review of laboratory results Normal [facility] Ketones, UA Negative Negative - 160(16) ++++ mg/dL [facility] Leukocytes, UA Negative Negative - 500+++ Cynthia/mcL [facility] Nitrite, UA Negative Negative - Positive [facility] pH, UA 7 5 - 9 [facility] e Protein, UA Negative Negative - 1999(20) ++++ mg/dL [facility] Spec Grav, UA 1.02 1 - 1.03 [facility] Urobilinogen, UA 0.2 0.2 - 12 mg/dL [facility] Healthcar e HCV ANTIBODY RFX TO QUANT PC Hieu 08-31-2024 HCV AB Non-Reactive Non Reactive [facility] hcare INTERPRETATION: Comment . [facility] thcare Comment on above: Not infected with HC V unless early or acute infection is suspected (which may be delayed in an immunocompromised individual), or other evidence exists to indicate HCV infection. Performed at: - [facility] [id number] Meatcutter: Tank Ureña PhD, Phone: [phone] [facility] e ALL CBC WITH AUTO DIFFon BASOPHILS ABSOLUTE AUTO [address] [facility] Basophils/100 WBC (Bld) 0.2 % 0.2 - 2.0 % [facility] Eosinophils/100 WBC (Bld) 0.6 % Low 0.9 - 7.0 % [facility] Erythrocyte distribution width (RBC) [Ratio] 13.2 % 11.0 - 15.0 % [facility] Hematocrit (Bld) [Volume fraction] 35.5 % Low 36.0 - 48.0 % [facility] Hemoglobin (Bld) [Mass/Vol] 12.1 g/dL 12.0 - 16.0 g/dL [facility] IMMATURE GRANULOCYTES ABS AUTO 0.[address] [facility] Immature granulocytes/100 WBC (Bld) 1 % High 0.0 - 0.5 % [facility] Interpretation and review of laboratory results Abnormal [facility] re LYMPHOCYTES ABSOLUTE AUTO 1.[address] [facility] Lymphocytes/100 WBC (Bld) 12.2 % Low 20.5 - 60.0 % [facility] MCH (RBC) [Entitic mass] 28.2 pg 26.7 - 34.[address] [facility] MCHC (RBC) [Mass/Vol] 34.1 g/dL 29.9 - 35.2 g/dL [facility] MCV (RBC) [Entitic vol] 82.8 fL 81.0 - 99.[address] [facility] MONOCYTES ABSOLUTE AUTO 0.5 [facility] Monocytes/100 WBC (Bld) 5.4 % 1.7 - 12.0 % [facility] NEUTROPHILS ABSOLUTE AUTO 7.[address] [facility] Neutrophils/100 WBC (Bld) 80.6 % High 43.0 - 75.0 % [facility] Platelet mean volume (Bld) [Entitic vol] 9.8 fL 9.5 - 13.[address] [facility] TBH EO # 0.1 [facility] Healthcar e TBH PLT 292 [facility] Health[facility] e TBH RBC 4.29 [facility] Health[facility] e TBH WBC 8.9 [facility] Healthcar e [facility] Healthcar e GLUCOSE 1 HOURon 08-30-2024 Glucose [Mass/Vol] 129 mg/dL NINF - 13 0 mg/dL [facility] Healthcar e Urinalysis macro (dipstick) panel (U)on 08-07-2024 Bilirubin, UA Negative Negative - 4(70) +++ mg/dL [facility] Blood, UA Negative Negative - 50 Cameron/mcL [facility] Clarity, UA Clear [facility] Healthva re Color, UA Yellow [facility] Healthcar e Glucose, UA Negative Negative - 1999(110) ++++ mg/dL [facility] Interpretation and review of laboratory results Normal [facility] re Ketones, UA Negative Negative - 160(16) ++++ mg/dL [facility] Leukocytes, UA Negative Negative - 500+++ Cynthia/mcL [facility] Nitrite, UA Negative Negative - Positive [facility] pH, UA 7 5 - 9 [facility] Health[facility] e Protein, UA Negative Negative - 1999(20) ++++ mg/dL [facility] Spec Grav, UA 1.015 1 - 1.03 [facility] Urobilinogen, UA 0.2 0.2 - 12 mg/dL [facility] Coding Summary.on 03-07-2020 Coding Summary. CODING DATE: 03/07/2020 FINAL [facility] DSC STATUS: Home (Routine DC) PAYOR: [...] Cheryl Glynn Date Saved: 03/07/2020 08:16 am [facility] Consent for Treatmenton 02-16 Consent for Treatment [id number] 0CD:127 Normal [facility] Discharge Instructionson Discharge Instructions [id number]. [id number]:127 Normal [facility] ED Clinical Summaryon 2019 ED Clinical Summary [place] [id number] ED Clinical Summary Person Information Name: ARLINE VASQUEZ Kiersten/[facility] Age: 19 Years : 2000 Sex: Female Language: Montenegrin PCP: Hailey CAR CNP Marital Status: Single Phone: [phone] Visit Id: Visit Reason: Foot laceration; FOOT [...] 03/06/2020 13:34:43 03/06/2020 13:34:43 03/06/2020 13:34:43 ADDRESS: [address] [place] [id number] PHYS DOC NOTES: MEDICAL INFORMATION: Prescriptions Given: PATIENT EDUCATION INFORMATION: Instructions: Laceration Care, Adult Follow up: With: Address: When: Hailey CAR [address] [place] [phone] Location (1) In 3 days 03/09/2020 Comments: 10 days for suture removal DIAGNOSIS: Laceration of left foot Normal [facility] ED Note-Physicianon 03-06-20 ED Note-Physician Basic [...] In 3 days 03/09/2020 EDT [address] [phone] Business (1) Additional Instructions: 10 days for [...] The case was discussed with: the physician obstetric assistant, Dannie Colin PA-C. Procedures: I directly [...] variant. Signed By: Raheem BOSE, Rhianna Ibarra [facility] Comment on above: Result Comment: Elec [...] the sutures are removed. ? Only take kecn-tyt-iasagqs or prescription medicines for pain, discomfort, or [...] Document Reviewed: 03/29/2012 ExitCare? Patient Information ?2015 [employer]. This information is not intended to replace advice given to you by your health care provider. Make sure you discuss any questions you have with your health care provider. Normal [facility] ED Patient Summaryon 020 ED Patient Summary [address] [address] Patient Discharge Instructions Person Information Name: ARLINE VASQUEZ Age: 19 Years Arrival Date: 03/06/2020 11:49:56 Discharge Diagnosis: Laceration of left foot Primary Care Physician: Hailey CAR CNP Provider Information Primary Provider: Emilie Hill DO [employer] Metalcleaner:Dannie Colin PA-C The exam and treatment you received in the Emergency Department were for an urgent problem and are not intended as complete care. It is important that you follow up with a doctor, nurse practitioner, or physician?s obstetric assistant for ongoing care. If your symptoms [...] With: Address: When: Hailey CAR [address] [phone] Business (1) In 3 days 03/09/2020 Comments: [...] opioids can be used to help relieve tmxrcrvn-bk-hrgrnt pain and are often prescribed following a [...] be struggling with addiction, tell your health career technical education teacher and ask for guidance or call [facility] National Helpline at 8-807-565-EACH. q Source: US Department of Health and Human Services/Center for Disease Control & Prevention [facility] Medications Given: Medication Dose Route lidocaine 10.00 mg SubCutaneous Left Foot Medication Information: Comment: Pharmacy Information: Thank you for choosing [facility] Patient Education Materials: Laceration Care, Adult [...] the sutures are removed. ? Only take opux-avb-wupzorx or prescription medicines for pain, discomfort, or [...] Document Reviewed: 03/29/2012 ExitCare? Patient Information ?2014 [employer]. This information is not intended to replace advice given to you by your health care provider. Make sure you discuss any questions you have with your health care provider. LOI Mae CYDNEY C , have received the following patient education materials/instructions and have verbalized understanding: Patient Education Materials: Laceration Care, Adult Follow-up Instructions: With: Address: When: Hailey CAR [address] [place], [place] [phone] Business (1) In 3 days 03/09/2020 Comments: 10 days for suture removal Patient Signature Date Clinician/Nurse Signature ___ Date 03/06/2020 13:34:45 Normal [facility] Prescriptions/Work Noteson 0 03-06-2020 Prescriptions/Work Notes [id number]. [id number]:127 Normal [facility] XR Foot 3+ Views Lefton 052 [...] MD Transcribed by: RENETTA Technologist: JOLANTA Moore [facility] Coding Summary.on 06-03-2019 Coding Summary. CODING DATE: 06/03/2019 FINAL [facility] DSC STATUS: Home (Routine DC) PAYOR: [...] Bourne Date Saved: 06/03/2019 10:40 am Normal [facility] BMPon 05-31-2019 Anion gap [Moles/Vol] 16 mmol/L Normal 6-16 [facility] Comment on above: Performed By: #### 2 [id number], [id number] #### [facility] [address] [place] [address] Calcium [Mass/Vol] 9.6 mg/dL Normal 8.9-11.1 [facility] Comment on above: Performed By: #### 2 [id number], [id number] #### [facility] [address] [place] [address] Chloride [Moles/Vol] 104 mmol/L Normal 101-111 [facility] Comment on above: Performed By: #### 2 [id number], [id number] #### [facility] [address] [place] [address] CO2 [Moles/Vol] 22 mmol/L Normal 21-31 [facility] Comment on above: Performed By: #### 2 [id number], [id number] #### [facility] [address] [place] [address] Creatinine [Mass/Vol] 0.7 mg/dL Normal 0.5-1.3 [facility] Comment on above: Performed By: #### 2 [id number], [id number] #### [facility] [address] [place] [address] Glucose [Mass/Vol] 92 mg/dL Normal 55-199 [facility] Comment on above: Result Comment: If t his glucose result represents a fasting glucose, interpretation should refer to the following reference range: 55-99 mg/dL Performed By: #### 2 [id number], [id number] #### [facility] [address] [place] [address] Potassium [Moles/Vol] 4.2 mmol/L Normal 3.5-5.3 [facility] Comment on above: Performed By: #### 2 [id number], [id number] #### [facility] [address] [place] [address] Sodium [Moles/Vol] 138 mmol/L Normal 135-145 [facility] Comment on above: Performed By: #### 2 814851, [id number] #### [facility] [address] [place] [address] Urea nitrogen [Mass/Vol] 14 mg/dL Normal 5-21 [facility] Comment on above: Performed By: #### 2 768774, [id number] #### [facility] [address] [place] [address] Urea nitrogen/Creatinine [Mass ratio] 20 No Units Normal 10-20 [facility] Comment on above: Performed By: #### 2 427690, [id number] #### [facility] [address] [place] [address] Lipid Panelon 05-31-2019 Cholesterol in LDL [Mass/Vol] 127 mg/dL Normal <=129 [facility] Comment on above: Performed By: #### 2 103781, [id number] #### [facility] [address] [place] [address] Cholesterol [Mass/Vol] 186 mg/dL Normal 120-200 [facility] Comment on above: Performed By: #### 2 [id number], [id number] #### [facility] [address] [place] [address] Cholesterol in HDL [Mass/Vol] 34 mg/dL [facility] Comment on above: Result Comment: HDL > or equal to 60 mg/dL: Low cardiovascular risk HDL < 40 mg/dL : High cardiovascular risk Performed By: #### 2 827339, [id number] #### [facility] [address] [place] [address] Cholesterol in VLDL [Mass/Vol] 51 mg/dL High 7-40 [facility] Comment on above: Performed By: #### 2 646107, [id number] #### [facility] [address] [place] [address] Triglyceride [Mass/Vol] 256 mg/dL High <=149 [facility] Comment on above: Performed By: #### 2 [id number], [id number] #### [facility] [address] [place] [address] Vital Signs Date Time Vital Sign Value Performing Clinician Jasiel berg 11-07-2024 10:42-0500 Body weight 106.59 kg Flora Rogelio DO Work Phone: [facility] 11-07-2024 10:42-0500 Diastolic blood pressure 78 mm[Hg] Flora Rogelio DO Work Phone: [facility] 11-07-2024 10:42-0500 Systolic blood pressure 126 mm[Hg] Flora Rogelio DO Work Phone: [facility] 10-31-2024 10:02-0500 Body weight 107.86 kg Flora Rogelio DO Work Phone: [facility] 10-31-2024 10:02-0500 Diastolic blood pressure 80 mm[Hg] Flora Rogelio DO Work Phone: [facility] 10-31-2024 10:02-0500 Systolic blood pressure 126 mm[Hg] Flora Rogelio DO Work Phone: [facility] 10-02-2024 09:24-0500 Body weight 104.78 kg Flora Rogelio DO Work Phone: [facility] 10-02-2024 09:24-0500 Diastolic blood pressure 72 mm[Hg] Flora Rogelio DO Work Phone: [facility] 10-02-2024 09:24-0500 Systolic blood pressure 124 mm[Hg] Flora Rogelio DO Work Phone: [facility] 09-11-2024 09:32-0500 Body weight 101.61 kg Flora Rogelio DO Work Phone: [facility] 09-11-2024 09:32-0500 Diastolic blood pressure 60 mm[Hg] Flora Rogelio DO Work Phone: [facility] 09-11-2024 09:32-0500 Systolic blood pressure 100 mm[Hg] Flora Rogelio DO Work Phone: [facility] 08-07-2024 14:18-0400 Body weight 98.43 kg Flora Rogelio DO Work Phone: [facility] 08-07-2024 14:18-0400 Diastolic blood pressure 74 mm[Hg] Flora Rogelio DO Work Phone: [facility] 08-07-2024 14:18-0400 Systolic blood pressure 112 mm[Hg] Flora Rogelio DO Work Phone: [facility] Healthcare Encounters Encounter Date Encounter Type Care [...] flow sheet Flora Rogelio DO Work Phone: [facility] OB Comment on above: 29 [...] flow sheet Flora Rogelio DO Work Phone: [facility] Comment on above: Second [...] stick/tabl et rgnt non-auto w/o micrscp Flora Rogeloi DO Work Phone: Start: 08-30-2024 ALL CBC [...] Routine [facility] [address] [place] [address] Flora Mercado, DO [address] [place] [address] [facility] Start: 11-07-2024 End: 11-07-2024 Patient encounter procedure 11/07/2024 10:10 AM EST Routine [facility] [address] [place] [address] Flora Mercado, DO [address] [place] [address] [facility] Start: 10-31-2024 End: 10-31-2025 CULTURE, GROUP B STREP WITH SUSCEPTIBLITY CULTURE, GROUP B STREP WITH SUSCEPTIBLITY Lab Routine Third trimester Expected: 10/31/2024, Expires: 10/31/2025 [facility] Work Phone: Comment on above: Expected: 10/31/2024 , Expires: 10/31/2025 Start: 10-31-2024 End: 10-31-2024 Patient encounter procedure 10/31/2024 9:20 AM EST Routine [facility] [address] [place] [address] Flora Mercado, DO [address] [place] [address] [facility] Start: 10-23-2024 End: 10-23-2024 Patient encounter procedure 10/23/2024 9:00 AM EST Routine [facility] [address] [place] [address] Flora Mercado, DO [address] [place] [address] [facility] Start: 10-02-2024 End: 10-02-2024 Patient encounter procedure [facility] Comment on above: Arrived Start: 10-02-2024 End: 10-02-2024 Professional / ancillary services management 10/02/2024 8:30 AM EST Ancillary Procedure [facility] [address] [place] [address] [facility] Start: 09-11-2024 End: 09-11-2025 US for US OB SCAN FOR GROWTH Imaging Routine Excessive growth affecting management of , antepartum, single or unspecified fetus Expected: 09/11/2024 (Approximate), Expires: 09/11/2025 [facility] Work Phone: Comment on above: Expected: 09/11/2024 (Approximate), Expires: 09/11/2025 Start: 09-11-2024 End: 09-11-2024 Patient encounter procedure 09/11/2024 8:50 AM EST Routine [facility] [address] [facility] [place] [address] Flora Mercado, DO [address] [place] [address] [facility] Start: 08-07-2024 End: 08-07-2025 CBC panel - Blood by Automated count CBC Lab Routine Diabetes mellitus screening Expected: 08/07/2024 (Approximate), Expires: 08/07/2025 [facility] Work Phone: Comment on above: Expected: 08/07/2024 (Approximate), Expires: 08/07/2025 Start: 08-07-2024 End: 08-07-2025 Measurement of glucose 1 hour after glucose challenge for glucose tolerance test Glucose tolerance, 1 hour Lab Routine Diabetes mellitus screening Expected: 08/07/2024 (Approximate), Expires: 08/07/2025 [facility] Comment on above: Expected: 08/07/2024 (Approximate), Expires: 08/07/2025 Start: 08-07-2024 End: 08-07-2024 Patient encounter procedure 08/07/2024 1:50 PM EDT Routine [facility] [address] [facility] [place] [address] Flora Mercado, DO [address], [place] [id number] Arrived [facility] Comment on above: Arrived Start: 06-18-2024 Influenza vaccination Influenza Vacc ine (#1) [facility] Hepatitis C virus Ab [Presence] in Serum or Plasma by Immunoassay Hepatitis C antibody Lab Routine , unspecified gestational age Ordered: 08/07/2024 [facility] Comment on above: Ordered: 08/07/2024 Payers Date Payer Category Payer Private Health Insurance [employer] Member Subscriber Plan / Payer (Effective 2024-Present) Name: Arline Vasquez Relation to Subscriber: Self Name: Arline Vasquez Payer ID: Not on file Type: Not on file Address: [place] [phone] 2024 Unknown [id number] 2001 Unknown [id number] [id number]. 1258 2001 Unknown [id number] [id number]. 1258 2001 Unknown [id number] [id number]. 1258 2001 Unknown [id number] 2.16.840.1.577412.3.579.2. 9 2001 Unknown [id number] 2.16.840.1.955527.3.579.2. 1258 2001 Unknown [id number] 2.16.840.1.761971.3.579.2. 1258 2001 Unknown [id number] 2.16.840.1.125994.3.579.2. 1258 2001 Unknown [id number] 2.16.840.1.957442.3.579.2. 1258 2001 Unknown [id number] 2.16.840.1.057661.3.579.2. 1258 2001 Unknown [id number] 2.16.840.1.193350.3.579.2. 1259 Social History Date Type Detail Facility [...] nursing note reviewed. Exam conducted with a equal opportunity officer present. Vitals: Estimated body mass index is [...] nursing note reviewed. Exam conducted with a equal opportunity officer present. Vitals: Estimated body mass index is [...] nursing note reviewed. Exam conducted with a equal opportunity officer present. Vitals: Estimated body mass index is [...] Flora Mercado DO documented in this encounter [facility] Healthcare History of Present illness Narrative [...] nursing note reviewed. Exam conducted with a equal opportunity officer present. Vitals: Estimated body mass index is [...] gestation. Order will be sent to [facility] to be pre-certed and scheduled. Patient to return to clinic in 4 weeks for routine OB care appointment. Patient declined genetic testing previously in the . Patient has complaints of round ligament pain. Documented by Danielle Pineda LPN on behalf of: Flora Mercado DO documented in this encounter [facility] Healthcare Evaluation note Note Date & Type Note Facility Evaluation note Diagnosis Second trimester state, incidental Diabetes mellitus screening Screening for diabetes mellitus , unspecified gestational age 24 weeks gestation of documented in this encounter [facility] Healthcare Evaluation note Note Date & Type Note Facility Evaluation note Diagnosis 29 weeks gestation of Third trimester state, incidental Excessive growth affecting management of , antepartum, single or unspecified fetus documented in this encounter [facility] Healthcare Evaluation note Note Date & Type Note Facility Evaluation note Diagnosis 32 weeks gestation of Third trimester state, incidental documented in this encounter [facility] Healthcare Evaluation note Note Date & [...] and content) DATE CREATED AUTHOR 03/19/2020 Alberto Pul[place]i [facility] DATE CREATED AUTHOR AUTHOR'S ORGANIZ ATION 11/08/2024 [facility] Care Teams (unrecognized sec tion and content) Distribution Designer Relationship Specialty Start Date End Date Kang Alfaro MD [address] [place] [address] PCP - [facility] 02/23/23 Kang Alfaro MD [address] [place] [address] PCP - [facility] 04/17/24 Distribution Designer Relationship Specialty Start Date End Date Kang Alfaro MD [address] [place] [address] PCP - [facility] 02/23/23 Kang Alfaro MD [address] [place] [address] PCP - [facility] 04/17/24 Distribution Designer Relationship Specialty Start Date End Date Kang Alfaro MD [address] [place] [address] PCP - [facility] 02/23/23 Distribution Designer Relationship Specialty Start Date End Date Kang Alfaro MD [address] [place] [address] P[address] - [facility] 02/23/23 Distribution Designer Relationship Specialty Start Date End Date Kang Alfaro MD [address] [place] [address] PCP - General Family Medicine 02/23/23 Distribution Designer Relationship Specialty Start Date End Date Kang Alfaro MD [address] [place] [address] PCP - General Family Medicine 02/23/23 Distribution Designer Relationship Specialty Start Date End Date Kang Alfaro MD [address] [place] [address] PCP - General [facility] Medicine 02/23/23 Distribution Designer Relationship Specialty Start Date End Date Kang Alfaro MD [address] [place] [address] PCP - General Family Medicine 02/23/23 Reason [...] BE BASED ON THE PRIMARY CLINICAL RECORDS. [employer] provides no warranty or guarantee of the accuracy or completeness of information in this document.
[2024-11-14 17:12] LABS: Hematocrit 37.1 % (36.0-48.0); Hemoglobin 12.6 g/dL (12.0-16.0); Mean Corpuscular Hemoglobin 27.2 pg (26.7-34.0); Mean Platelet Volume 10.3 fL (9.5-13.5); Platelet Count 295 10^3/uL (150-450); Red Blood Count 4.64 10^6/uL (4.20-5.40); Red Cell Distribution Width 13.6 % (11.0-15.0); White Blood Count 10.1 10^3/uL (4.0-11.0)
[2024-11-14] MEDS: DINOPROSTONE 10 MG VAG INSERT.ER VAGINAL (17:16)
[2024-11-14 17:33] LABS: Amphetamine Screen Urine NEGATIVE (NEGATIVE); Barbiturates Screen Urine NEGATIVE (NEGATIVE); Benzodiazepines Screen Urine NEGATIVE (NEGATIVE); Buprenorphine Screen Urine NEGATIVE (NEGATIVE); Cannabinoid Screen Urine NEGATIVE (NEGATIVE); Cocaine Screen Urine NEGATIVE (NEGATIVE); Methadone Screen Urine NEGATIVE (NEGATIVE); Methamphetamines Screen Urine NEGATIVE (NEGATIVE); Opiate Screen Urine NEGATIVE (NEGATIVE); Oxycodone Screen Urine NEGATIVE (NEGATIVE); Phencyclidine Screen Urine NEGATIVE (NEGATIVE); Tricyclic Antidepressant Urine NEGATIVE (NEGATIVE)
[2024-11-15] VITALS (70 sets, daily range): BP systolic 114–168; BP diastolic 57–98; PULSE 78–137; TEMP 35.9–36.8
[2024-11-15] MEDS: OXYTOCIN/0.9 % SODIUM CHLORIDE 10 UNITS/500 ML PLAST..BAG 6 UNIT IV (06:49)
[2024-11-15] MEDS: 0.9 % SODIUM CHLORIDE 1,000 ML 125 ML IV ×3 (06:49→23:20)
[2024-11-15] MEDS: AMPICILLIN SODIUM 2,000 MG in 0.9 % SODIUM CHLORIDE 100 ML 200 MG IV (06:50)
[2024-11-15] MEDS: AMPICILLIN SODIUM 1,000 MG in 0.9 % SODIUM CHLORIDE 50 ML 100 MG IV ×4 (10:13→22:15)
[2024-11-15] MEDS: ONDANSETRON PF 4 MG/2 ML VIAL IV ×2 (12:00→21:17)
[2024-11-15] MEDS: 0.9 % SODIUM CHLORIDE 1,000 ML 1000 ML IV (12:50)
[2024-11-15] MEDS: ROPIVACAINE HCL/PF 400 MG/200 ML PREMIX 6 MG EPIDURAL (13:20)
[2024-11-15] MEDS: OXYTOCIN/0.9 % SODIUM CHLORIDE 10 UNITS/500 ML PLAST..BAG 60 UNIT IV (18:14)
[2024-11-15] MEDS: OXYTOCIN/0.9 % SODIUM CHLORIDE 20 UNITS/1,000 ML PLAST..BAG 125 UNIT IV (23:00)
--- NOTE | 2024-11-15 23:11 | PM.OBPRCVD ---
Procedure Intrapartal events: None Induction method: per pitocin protocol Delivery augmentation: rupture of membranes and pitocin Delivery monitor: external FHT and external uterine Route of delivery: Episiotomy Description: none L&D Laceration Description: periurethral - 1st degree and perineal - 1st degree Delivery repair: Vicryl Estimated blood loss (mL): 350 Anesthesia type: Epidural Disposition: floor Infant Delivery date: 11/15/24 Gender: female presentation: vertex Placental delivery description: Spontaneous cord description: 3 Vessels and Nuchal Cord
[2024-11-15] MEDS: LIDOCAINE HCL 1% 200 MG/20 ML MDV INJ (23:19)
[2024-11-16] VITALS (14 sets, daily range): BP systolic 111–140; BP diastolic 56–85; PULSE 85–110; TEMP 36.6–37.3
[2024-11-16] MEDS: GLYCERIN/WITCH HAZEL PADS 1 PAD TOPICAL (06:08)
[2024-11-16] MEDS: BENZOCAINE/MENTHOL 85 GRAM SPRAY BOTTLE 1 APPLIC TOPICAL (06:09)
[2024-11-16 07:25] LABS: Basophils Percent Auto 0.2 % (0.2-2.0); Eosinophils Percent Auto 0.1 % (0.9-7.0); Hematocrit 33.7 % (36.0-48.0); Immature Granulocytes Abs Auto 0.08 10^3/uL (0.00-0.03); Immature Granulocytes Pct Auto 0.6 % (0.0-0.5); Lymphocytes Absolute Auto 1.2 10^3/uL (1.2-3.8); Mean Corpuscular HGB Conc 32.6 g/dL (29.9-35.2); Mean Corpuscular Hemoglobin 26.7 pg (26.7-34.0); Mean Corpuscular Volume 81.8 fL (81.0-99.0); Mean Platelet Volume 10.3 fL (9.5-13.5); Monocytes Absolute Auto 1.3 10^3/uL (0.3-0.8); Monocytes Percent Auto 9.1 % (1.7-12.0); Neutrophils Absolute Auto 11.1 10^3/uL (1.4-6.5); Platelet Count 252 10^3/uL (150-450); Red Blood Count 4.12 10^6/uL (4.20-5.40); Red Cell Distribution Width 13.6 % (11.0-15.0); White Blood Count 13.7 10^3/uL (4.0-11.0)
[2024-11-16] MEDS: DOCUSATE SODIUM 100 MG CAPSULE PO ×2 (08:15→20:47)
--- NOTE | 2024-11-16 08:34 | PM.OBPN ---
OB - PN: Subj Subjective Patient comments: no complaints [employer] status: doing well feeding status: exclusively Exam Constitutional Vital Signs, click to edit/add: Last Vital Signs Temp 98.1 F 11/16/24 01:01 Pulse 101 H 11/16/24 08:17 Resp 16 11/16/24 01:01 BP 128/67 11/16/24 08:17 O2 Del Method Room Air 11/16/24 03:17 Common normals: no apparent distress General appearance: cooperative and comfortable Orientation/consciousness: Yes awake, Yes oriented to person, Yes oriented to place and Yes oriented to time HENMT Common normals: normocephalic Face and sinus: normal facial exam Eye Common normals: EOMs intact bilaterally General eye: normal appearance of both eyes Neck & C-Spine Common normals: full ROM Lymph Lymphatic: no lymphadenopathy noted Chest Common normals: inspection of chest normal Respiratory Common normals: normal respiratory effort, no retractions, no use of accessory muscles and clear to auscultation bilaterally Effort & inspection: able to speak in complete sentences Auscultation: clear to auscultation bilaterally Cardio Common normals: regular rate and regular rhythm Rate: regular rate Rhythm: regular rhythm GI Common normals: Normal to inspection, nondistended, normoactive bowel sounds present, soft to palpation and non-tender Inspection: normal to inspection Auscultation: normoactive bowel sounds Palpation: soft Common normals: no CVA tenderness Back & Pelvis Common normals: no CVA tenderness Extremity Common normals: normal to inspection and full ROM General: normal exam except as noted Neuro Common normals: oriented x3 Sensorium/orientation: awake, alert, oriented to person, oriented to place and oriented to time Psych Common normals: mental status grossly normal, thought process normal, cooperative, affect normal, speech normal, activity/motor behavior normal, denies hallucinations, denies homicidal ideation and denies suicidal ideation Appearance: grossly normal Attitude: calm Activity/motor behavior: appropriate eye contact Results Labs Labs: Short CBC 11/16/24 Range/Units 07:06 WBC 13.7 H (4.0-11.0) 10^3/uL Hgb 11.0 L (12.0-16.0) g/dL Hct 33.7 L (36.0-48.0) % Plt Count 252 (150-450) 10^3/uL OB - PN: A/P Plan - Vaginal Delivery day: 1 Plan: routine care Time Spent with Patient Time: Total time spent is greater than 50% in coordination of care (as documented) at patient's floor/unit and/or counseling patient: Total time spent with greater than 50% in coordination of care (as documented) at patient's floor/unit and/or counseling patient: less than 15 minutes
--- NOTE | 2024-11-16 15:24 | PC.NURSE ---
Educated on hand expression, demo given and pt able to return demo. noted to remain gaggy, large burp and brings up thick mucus. Not interested in latching. Mom expresses 1.5 ml colostrum and cup fed to baby. Taken easily. Baby placed on chest for skin to skin. REviewed . Verbalized understanding.
--- NOTE | 2024-11-17 07:38 | PM.OBPN ---
OB - PN: Subj Subjective Patient comments: no complaints [place] status: doing well feeding status: exclusively Exam Constitutional Vital Signs, click to edit/add: Last Vital Signs Temp 98.5 F 11/16/24 23:30 Pulse 85 11/16/24 23:42 Resp 16 11/16/24 23:30 BP 140/67 11/16/24 23:42 O2 Del Method Room Air 11/16/24 23:30 Documenting provider has reviewed patient's vital signs: yes Common normals: no apparent distress Exam limitations: altered mental status General appearance: cooperative Orientation/consciousness: Yes awake, Yes oriented to person, Yes oriented to place and Yes oriented to time HENMT Common normals: normocephalic Eye Common normals: EOMs intact bilaterally Neck & C-Spine Common normals: full ROM Lymph Lymphatic: no lymphadenopathy noted Respiratory Common normals: normal respiratory effort Effort & inspection: able to speak in complete sentences Auscultation: clear to auscultation bilaterally Cardio Common normals: regular rate and regular rhythm Rate: regular rate Rhythm: regular rhythm GI Common normals: Normal to inspection, nondistended, normoactive bowel sounds present Inspection: normal to inspection Palpation: soft and firm Common normals: no CVA tenderness Back & Pelvis Common normals: no CVA tenderness Thoracic spine/upper back: normal to inspection Extremity Common normals: normal to inspection Neuro Common normals: oriented x3 Sensorium/orientation: awake, alert, oriented to person, oriented to place and oriented to time Psych Common normals: mental status grossly normal Attitude: calm Speech: normal speech Results Labs Labs: Short CBC 11/16/24 Range/Units 07:06 WBC 13.7 H (4.0-11.0) 10^3/uL Hgb 11.0 L (12.0-16.0) g/dL Hct 33.7 L (36.0-48.0) % Plt Count 252 (150-450) 10^3/uL OB - PN: A/P Plan - Vaginal Delivery day: 2 Plan: discharge home Time Spent with Patient Time: Total time spent is greater than 50% in coordination of care (as documented) at patient's floor/unit and/or counseling patient: Total time spent with greater than 50% in coordination of care (as documented) at patient's floor/unit and/or counseling patient: less than 15 minutes
[2024-11-17 08:15] VITALS: BP 129/78; PULSE 87; TEMP 36.7
[2024-11-17 08:16] VITALS: BP 129/78; PULSE 87
[2024-11-17] MEDS: DOCUSATE SODIUM 100 MG CAPSULE PO (08:21)
[2024-11-17] MEDS: RHO(D) IMMUNE GLOBULIN 1,500 UNIT SYRINGE 1500 UNIT IM (08:32)
== END 2024-11-17 13:45 | disposition home or self-care (01) | DRG 807 ==
LOC: FBC 16:11
PROVIDERS: Admitting Provider Obstetrics & Gynecology; PCP Obstetrics & Gynecology; Visit Provider Obstetrics & Gynecology
DX: O69.81X0 Labor and delivery complicated by cord around neck, without compression, not applicable or unspecified (principal); Z37.0 Single live birth; O70.0 First degree perineal laceration during delivery; Z3A.39 39 weeks gestation of pregnancy; O26.893 Other specified pregnancy related conditions, third trimester; Z67.11 Type A blood, Rh negative; O99.820 Streptococcus B carrier state complicating pregnancy
CPT/HCPCS: 36415; 59050; 80307; 85025; 85027; 85461; 86850; 86900; 86901; 88307; J0290; J2405; J2791; J2795

== ENCOUNTER 2024-11-21 08:09 | Outpatient (OUT) | payer OTHER, SELFPAY ==
--- OUTSIDE RECORDS SUMMARY | 2024-11-21 08:25 | XMS_ITS | CCD ---
Author Organization [facility] Care Team Providers Care Application Project Leader Name Role Phone Kang Alfaro MD Primary Care Provider Kang Alfaro MD Unavailable ROGELIO, FLORA Attending Unavailable ROGELIO, FLORA Attending Unavailable UNALLOCATED, NOMS PROVIDER Referring Unava ilable PENNINGTON, PENOLA P Attending Unavailable PENNINGTON, PENOLA P Referring Unavailable PENNINGTON, PENOLA P Referring Unavailable PENNINGTON, PENOLA P Attending Unavailable PENNINGTON, PENOLA P Referring Unavailable ROGELIO, FLORA Attending Unavailable ROGELIO, FLORA Attending Unavailable ROGELIO, FLORA Attending Unavailable ROGELIO, FLORA Attending Unavailable Rogelio DO, Flora Attending Provider Rogelio, Flora Attending Unavailable Rogelio, Flora Admitting Unavailable Medications Current Medications Medication Drug Class(es) Dates Sig (Normalized) Sig (Original) MV-Min-Fe Fum-FA-DHA ( 1 PO) (17 sources) MV-Min- Fe Fum-FA-DHA ( 1 PO) [...] of ] 08-07-2024 Episodic Residual codes; unclassified (19 sources) Gestation period, 29 weeks; Translations: [29 [...] [38 weeks gestation of ] 11-07-2024 Episodic Residual codes; unclassified (2 sources) Gestation period, 39 weeks; Translations: [39 weeks gestation of ] 11-14-2024 Episodic Unclassified (20 sources) OB Reminders Onset: 04-06-2024 04-06-2024 Results Test Name Value Interpretation Reference Range Facility ALL CBC WITH AUTO DIFFon BASOPHILS ABSOLUTE AUTO 0 [facility] Basophils/100 WBC (Bld) 0.2 % 0.2 - 2.0 % [facility] Eosinophils/100 WBC (Bld) 0.1 % Low 0.9 - 7.0 % [facility] Erythrocyte distribution width (RBC) [Ratio] 13.6 % 11.0 - 15.0 % [facility] Hematocrit (Bld) [Volume fraction] 33.7 % Low 36.0 - 48.0 % [facility] (Bld[facility] [Mass/Vol] 11 g/dL Low 12.0 - 16.0 g/dL [facility] IMMATURE GRANULOCYTES ABS AUTO 0.08 High [facility] Immature granulocytes/100 WBC (Bld) 0.6 % High 0.0 - 0.5 % [facility] Interpretation and review of laboratory results Abnormal [facility] LYMPHOCYTES ABSOLUTE AUTO 1.2 [facility] Lymphocytes/100 WBC (Bld) 9 % Low 20.5 - 60.0 % [facility] MCH (RBC) [Entitic mass] 26.7 pg 26.7 - 34.0 pg [facility] MCHC (RBC) [Mass/Vol] 32.6 g/dL 29.9 - 35.2 g/dL [facility] MCV (RBC) [Entitic vol] 81.8 fL 81.0 - 99.0 fL [facility] MONOCYTES ABSOLUTE AUTO 1.3 High [facility] Monocytes/100 WBC (Bld) 9.1 % 1.7 - 12.0 % [facility] NEUTROPHILS ABSOLUTE AUTO 11.1 High [facility] Neutrophils/100 WBC (Bld) 81 % High 43.0 - 75.0 % [facility] Platelet mean volume (Bld) [Entitic vol] 10.3 fL 9.5 - 13.5 fL [facility] TBH EO # 0 [facility] TB PLT 252 [facility] e [facility] RBC 4.12 Low [facility] WBC 13.7 High [facility] Healthcar e [facility] CBC WITH PLATELET NO DI FFERENTIALon 11-14-2024 Erythrocyte distribution width (RBC) [Ratio] 13.6 % 11.0 - 15.0 % [facility] Hematocrit (Bld) [Volume fraction] 37.1 % 36.0 - 48.0 % [facility] Healthcar e Hemoglobin (Bld) [Mass/Vol] 12.6 g/dL 12.0 - 16.0 g/dL [facility] Interpretation and review of laboratory results Abnormal [facility] re MCH (RBC) [Entitic mass] 27.2 pg 26.7 - 34.0 pg [facility] MCHC (RBC) [Mass/Vol] 34 g/dL 29.9 - 35.2 g/dL [facility] MCV (RBC) [Entitic vol] 80 fL Low 81.0 - 99.0 fL [facility] Platelet mean volume (Bld) [Entitic vol] 10.3 fL 9.5 - 13.5 fL [facility] PLT 295 [facility] RBC 4.64 [facility] WBC 10.1 [facility] Healthcar e [facility] Healthcar e Urinalysis macro (dipstick) panel (U)on 11-14-2024 Bilirubin, UA Negative Negative - 4(70) +++ mg/dL [facility] Blood, UA Positive Negative - 50 Cameron/mcL [facility] Clarity, UA Clear [facility] Healthca re Color, UA Yellow [facility] e Glucose, UA Negative Negative - 2000(110) ++++ mg/dL [facility] Interpretation and review of laboratory results Abnormal [facility] re Ketones, UA Negative Negative - 160(16) ++++ mg/dL [facility] Leukocytes, UA Negative Negative - 500+++ Cynthia/mcL [facility] Nitrite, UA Trace Negative - Positive [facility] pH, UA 7 5 - 9 [facility] e Protein, UA Negative Negative - 2000(20) ++++ mg/dL [facility] Spec Grav, UA 1.01 1 - 1.[address] [facility] Urobilinogen, UA 0.2 0.2 - 12 mg/dL [facility] Healthcar e ALL MISCELLANEOUS TESTon MISCELLANEOUS TEST COMMENT . [facility] ealthcare Comment on above: Test Ordered: [id number] Strep Gp B Culture+Rflx Strep Gp B Culture+Rflx Positive [A ] CB Reference Range: Negative Centers for Disease Control and Prevention (CDC) and [employer]nec[employer] (ACOG) guidelines [...] at high risk for anaphylaxis. Performed at: [facility] [address] [id number] Appeals Specialist: Tank Ureña PhD, Phone: [phone] GROUP B STREP [id number] Group B Streptococcus Colonization Detection Culture With Re [facility] Healthcar e Urinalysis macro (dipstick) panel (U)on 10-31-2024 Bilirubin, UA Negative Negative - 4(70) +++ mg/dL [facility] Healthcare Blood, UA Negative Negative - 50 Cameron/mcL [facility] Clarity, UA Clear [facility] re Color, UA Yellow [facility] e Glucose, UA Negative Negative - 1999(110) ++++ mg/dL [facility] Interpretation and review of laboratory results Abnormal [facility] re Ketones, UA Negative Negative - 160(16) ++++ mg/dL [facility] Leukocytes, UA Trace Negative - 500+++ Cynthia/mcL [facility] Healthcare Nitrite, UA Negative Negative - Positive [facility] pH, UA 7 5 - 9 [facility] e Protein, UA Negative Negative - 1999(20) ++++ mg/dL [facility] Healthcare Spec Grav, UA 1.015 1 - 1.03 [facility] care Urobilinogen, UA 0.2 0.2 - 12 mg/dL [facility] Healthcare [facility] e Urinalysis macro (dipstick) panel (U)on 10-02-2024 Bilirubin, UA Negative Negative - 4(70) +++ mg/dL [facility] Healthcare Blood, UA Negative Negative - 50 Cameron/mcL [facility] Healthcare Clarity, UA Clear [facility] re Color, UA Yellow [facility] Glucose, UA Negative Negative - 1999(110) ++++ mg/dL [facility] Interpretation and review of laboratory results Abnormal [facility] re Ketones, UA Negative Negative - 160(16) ++++ mg/dL [facility] Healthcare Leukocytes, UA Trace Negative - 500+++ Cynthia/mcL [facility] Healthcare Nitrite, UA Negative Negative - Positive [facility] pH, UA 6.5 5 - 9 [facility] e Protein, UA Negative Negative - 1999(20) ++++ mg/dL [facility] Healthcare Spec Grav, UA 1.015 1 - 1.03 [facility] Urobilinogen, UA 0.2 0.2 - 12 mg/dL [facility] e Urinalysis macro (dipstick) panel (U)on 09-11-2024 Bilirubin, UA Negative Negative - 4(70) +++ mg/dL [facility] Healthcare Blood, UA Negative Negative - 50 Cameron/mcL [facility] Healthcare Clarity, UA Clear [facility] re Color, UA Yellow [facility] e Glucose, UA Negative Negative - 1999(110) ++++ mg/dL [facility] Interpretation and review of laboratory results Normal [facility] re Ketones, UA Negative Negative - 160(16) ++++ mg/dL [facility] Leukocytes, UA Negative Negative - 500+++ Cynthia/mcL [facility] Nitrite, UA Negative Negative - Positive [facility] pH, UA 7 5 - 9 [facility] e Protein, UA Negative Negative - 1999(20) ++++ mg/dL [facility] Spec Grav, UA 1.02 1 - 1.[address] [facility] Urobilinogen, UA 0.2 0.2 - 12 mg/dL [facility] HCV ANTIBODY RFX TO QUANT PC Hieu 08-31-2024 HCV AB Non-Reactive Non Reactive [facility] hcare INTERPRETATION: Comment . [facility] thcare Comment on above: Not infected with HC V unless early or acute infection is suspected (which may be delayed in an immunocompromised individual), or other evidence exists to indicate HCV infection. Performed at: - [facility] [id number] Appeals Specialist: Tank Ureña PhD, Phone: [phone] [facility] e ALL CBC WITH AUTO DIFFon BASOPHILS ABSOLUTE AUTO 0 [facility] Basophils/100 WBC (Bld) 0.2 % 0.2 - 2.0 % [facility] Eosinophils/100 WBC (Bld) 0.6 % Low 0.9 - 7.0 % [facility] Erythrocyte distribution width (RBC) [Ratio] 13.2 % 11.0 - 15.0 % [facility] Hematocrit (Bld) [Volume fraction] 35.5 % Low 36.0 - 48.0 % [facility] Healthcar e Hemoglobin (Bld) [Mass/Vol] 12.1 g/dL 12.0 - 16.0 g/dL [facility] IMMATURE GRANULOCYTES ABS AUTO 0.09 High [facility] Immature granulocytes/100 WBC (Bld) 1 % High 0.0 - 0.5 % [facility] Interpretation and review of laboratory results Abnormal [facility] re LYMPHOCYTES ABSOLUTE AUTO 1.1 Low [facility] Lymphocytes/100 WBC (Bld) 12.2 % Low 20.5 - 60.0 % [facility] MCH (RBC) [Entitic mass] 28.2 pg 26.7 - 34.0 pg [facility] MCHC (RBC) [Mass/Vol] 34.1 g/dL 29.9 - 35.2 g/dL [facility] MCV (RBC) [Entitic vol] 82.8 fL 81.0 - 99.0 fL [facility] MONOCYTES ABSOLUTE AUTO 0.5 [facility] Monocytes/100 WBC (Bld) 5.4 % 1.7 - 12.0 % [facility] NEUTROPHILS ABSOLUTE AUTO 7.1 High [facility] Neutrophils/100 WBC (Bld) 80.6 % High 43.0 - 75.0 % [facility] Platelet mean volume (Bld) [Entitic vol] 9.8 fL 9.5 - 13.5 fL [facility] TBH EO # 0.1 [facility] PLT 292 [facility] RBC 4.29 [facility] Healthcar e TBH WBC 8.9 [facility] Healthcar e [facility] Healthcar e GLUCOSE 1 HOURon 08-30-2024 Glucose [Mass/Vol] 129 mg/dL NINF - 13 0 mg/dL [facility] Healthcar e Urinalysis macro (dipstick) panel (U)on 08-07-2024 Bilirubin, UA Negative Negative - 4(70) +++ mg/dL [facility] Blood, UA Negative Negative - 50 Cameron/mcL [facility] Clarity, UA Clear [facility] re Color, UA Yellow [facility] Glucose, UA Negative Negative - 1999(110) ++++ mg/dL [facility] Interpretation and review of laboratory results Normal [facility] re Ketones, UA Negative Negative - 160(16) ++++ mg/dL [facility] Leukocytes, UA Negative Negative - 500+++ Cynthia/mcL [facility] Nitrite, UA Negative Negative - Positive [facility] pH, UA 7 5 - 9 [facility] Healthcar e Protein, UA Negative Negative - 1999(20) ++++ mg/dL [facility] Spec Grav, UA 1.015 1 - 1.[address] [facility] Urobilinogen, UA 0.2 0.2 - 12 mg/dL [facility] Coding Summary.on 03-07-2020 Coding Summary. CODING DATE: 03/07/2020 FINAL [facility] STATUS: Home (Routine DC) PAYOR: Medicaid [...] Cheryl Glynn Date Saved: 03/07/2020 08:16 am [facility] Consent for Treatmenton 02-16 Consent for Treatment [id number] 0CD:[address] [facility] Discharge Instructionson Discharge Instructions [id number]. 00CD:[address] [facility] ED Clinical Summaryon 2019 ED Clinical Summary [place] [id number] ED Clinical Summary Person Information Name: ARLINE VASQUEZ Kiersten/[facility] Age: 19 Years : 2000 Sex: Female Language: Austrian PCP: Hailey CAR CNP Marital Status: Single Phone: [phone] Visit Id: Visit Reason: Foot laceration; FOOT [...] 03/06/2020 13:34:43 03/06/2020 13:34:43 03/06/2020 13:34:43 ADDRESS: [address] [place] [phone] [facility] DOC NOTES: MEDICAL INFORMATION: Prescriptions Given: PATIENT EDUCATION INFORMATION: Instructions: Laceration Care, Adult Follow up: With: Address: When: Hailey CAR [address] [place] [phone] Business (1) In 3 days 03/09/2020 Comments: 10 days for suture removal DIAGNOSIS: Laceration of left foot Normal [facility] ED Note-Physicianon 03-06-20 ED Note-Physician Basic [...] In 3 days 03/09/[address] EDT [address] [place] [address]- Business (1) Additional Instructions: 10 days for [...] case was discussed with: the physician assistant superintendent for curriculum, Dannie Colin PA-C. Procedures: I directly supervised [...] variant. Signed By: Raheem BOSE, Rhianna Ibarra [facility] Comment on above: Result Comment: Elec [...] the sutures are removed. ? Only take vcld-vkk-gbercpk or prescription medicines for pain, discomfort, or [...] Document Reviewed: 03/29/2012 ExitCare? Patient Information ?2015 [employer]. This information is not intended to replace advice given to you by your health care provider. Make sure you discuss any questions you have with your health care provider. Normal [facility] ED Patient Summaryon 020 ED Patient Summary [address] [address] Patient Discharge Instructions Person Information Name: ARLINE VASQUEZ Age: 19 Years Arrival Date: 03/06/2020 11:49:56 Discharge Diagnosis: Laceration of left foot Primary Care Physician: Hailey CAR CNP Provider Information Primary Provider: Emilie Hill DO Advanced Night Baker:Dannie Colin PA-C The exam and treatment you received in the Emergency Department were for an urgent problem and are not intended as complete care. It is important that you follow up with a doctor, nurse practitioner, or physician?s assistant superintendent for curriculum for ongoing care. If your symptoms become [...] With: Address: When: Hailey CAR [address] [phone] [employer] (1) In 3 days 03/09/2020 Comments: 10 [...] opioids can be used to help relieve tfmzrcjh-wu-mrydye pain and are often prescribed following a [...] be struggling with addiction, tell your health nurse behavioral health care and ask for guidance or call SAMHSA?S National Helpline at 6-096-846-CQEZ. v Source: US Department of Health and Human Services/Center for Disease Control & Prevention [facility] Medications Given: Medication Dose Route lidocaine 10.00 mg SubCutaneous Left Foot Medication Information: Comment: Pharmacy Information: Thank you for choosing [facility] Patient Education Materials: Laceration Care, Adult [...] the sutures are removed. ? Only take ktug-vlu-epedsnh or prescription medicines for pain, discomfort, or [...] Document Reviewed: 03/29/2012 ExitCare? Patient Information ?2014 [employer]. This information is not intended to replace advice given to you by your health care provider. Make sure you discuss any questions you have with your health care provider. LOI Mae CYDNEY C , have received the following patient education materials/instructions and have verbalized understanding: Patient Education Materials: Laceration Care, Adult Follow-up Instructions: With: Address: When: Hailey CAR [address] [place], [place] [phone] Business (1) In 3 days 03/09/2020 Comments: 10 days for suture removal Patient Signature Date Clinician/Nurse Signature ___ Date 03/06/2020 13:34:[address] [facility] Prescriptions/Work Noteson 0 03-06-2020 Prescriptions/Work Notes [id number]. [id number]:[address] [facility] XR Foot 3+ Views Lefton 052 [...] MD Transcribed by: RENETTA Technologist: JOLANTA Normal [facility] Coding Summary.on 06-03-2019 Coding Summary. CODING DATE: 06/03/2019 FINAL [facility] STATUS: Home (Routine DC) PAYOR: Medicaid EA DESCRIPTION 0457 VENIPUNCTURE 0403 ORGAN OR DISEASE [...] Bourne Date Saved: 06/03/2019 10:[address] [facility] BMPon 05-31-2019 Anion gap [Moles/Vol] 16 mmol/L Normal 6-16 [facility] Comment on above: Performed By: #### 2 [id number], [id number] #### [facility] [address] [place] [address] Calcium [Mass/Vol] 9.6 mg/dL Normal 8.9-11.1 [facility] Comment on above: Performed By: #### 2 [id number], [id number] #### [facility] [address] [place] [address] Chloride [Moles/Vol] 104 mmol/L Normal 101-111 [facility] Comment on above: Performed By: #### 2 [id number], [id number] #### [facility] [address] [place] [address] CO2 [Moles/Vol] 22 mmol/L Normal 21-31 [facility] Comment on above: Performed By: #### 2 [id number], [id number] #### [facility] [address] [place] [address] Creatinine [Mass/Vol] 0.7 mg/dL Normal 0.5-1.3 [facility] Comment on above: Performed By: #### 2 [id number], [id number] #### [facility] [address] [place] [address] Glucose [Mass/Vol] 92 mg/dL Normal 55-199 [facility] Comment on above: Result Comment: If t his glucose result represents a fasting glucose, interpretation should refer to the following reference range: 55-99 mg/dL Performed By: #### 2 [id number], [id number] #### [facility] [address] [place] [address] Potassium [Moles/Vol] 4.2 mmol/L Normal 3.5-5.3 [facility] Comment on above: Performed By: #### 2 [id number], [id number] #### [facility] [address] [place] [address] Sodium [Moles/Vol] 138 mmol/L Normal 135-145 [facility] Comment on above: Performed By: #### 2 [id number], [id number] #### [facility] [address] [place] [address] Urea nitrogen [Mass/Vol] 14 mg/dL Normal 5-21 [facility] Comment on above: Performed By: #### 2 [id number], [id number] #### [facility] [address] [place] [address] Urea nitrogen/Creatinine [Mass ratio] 20 No Units Normal 10-20 [facility] Comment on above: Performed By: #### 2 [id number], [id number] #### [facility] [address] [place] [address] Lipid Panelon 05-31-2019 Cholesterol in LDL [Mass/Vol] 127 mg/dL Normal <=129 [facility] Comment on above: Performed By: #### 2 [id number], [id number] #### [facility] [address] [place] [address] Cholesterol [Mass/Vol] 186 mg/dL Normal 120-200 [facility] Comment on above: Performed By: #### 2 [id number], [id number] #### [facility] [address] [place] [address] Cholesterol in HDL [Mass/Vol] 34 mg/dL [facility] Comment on above: Result Comment: HDL > or equal to 60 mg/dL: Low cardiovascular risk HDL < 40 mg/dL : High cardiovascular risk Performed By: #### 2 [id number], [id number] #### [facility] [address] [place] [address] Cholesterol in VLDL [Mass/Vol] 51 mg/dL High 7-40 [facility] Comment on above: Performed By: #### 2 [id number], [id number] #### [facility] [address] [place] [address] Triglyceride [Mass/Vol] 256 mg/dL High <=149 [facility] Comment on above: Performed By: #### 2 [id number], [id number] #### [facility] [address] [place] [address] Vital Signs Date Time Vital Sign Value Performing Clinician Jasiel berg 11-14-2024 09:58-0500 Body weight 108.01 kg Flora Rogelio DO Work Phone: [facility] 11-07-2024 10:42-0500 Body weight 106.59 kg Flora Rogelio DO Work Phone: [facility] 11-07-2024 10:42-0500 Diastolic blood pressure 78 mm[Hg] Flora Rogelio DO Work Phone: [facility] 11-07-2024 10:42-0500 Systolic blood pressure 126 mm[Hg] Flora Rogelio DO Work Phone: [facility] 10-31-2024 10:02-0500 Body weight 107.86 kg Flora Rogelio DO Work Phone: [facility] 10-31-2024 10:02-0500 Diastolic blood pressure 80 mm[Hg] Flora Rogelio DO Work Phone: [facility] 10-31-2024 10:02-0500 Systolic blood pressure 126 mm[Hg] Flora Rogelio DO Work Phone: [facility] 10-02-2024 09:24-0500 Body weight 104.78 kg Flora Rogelio DO Work Phone: [facility] 10-02-2024 09:24-0500 Diastolic blood pressure 72 mm[Hg] Flora Rogelio DO Work Phone: [facility] 10-02-2024 09:24-0500 Systolic blood pressure 124 mm[Hg] Flora Rogelio DO Work Phone: [facility] 09-11-2024 09:32-0500 Body weight 101.61 kg Flora Rogelio DO Work Phone: [facility] 09-11-2024 09:32-0500 Diastolic blood pressure 60 mm[Hg] Flora Rogelio DO Work Phone: [facility] 09-11-2024 09:32-0500 Systolic blood pressure 100 mm[Hg] Floar Rogelio DO Work Phone: [facility] 08-07-2024 14:18-0400 Body weight 98.43 kg Flora Rogelio DO Work Phone: [facility] 08-07-2024 14:18-0400 Diastolic blood pressure 74 mm[Hg] Flora Rogelio DO Work Phone: [facility] 08-07-2024 14:18-0400 Systolic blood pressure 112 mm[Hg] Flora Rogelio DO Work Phone: [facility] Encounters Encounter Date Encounter Type Care Provider Facility Start: 2024 End: 2024 [facility] Result Encounter Flora Rogelio DO Work Phone: [facility] Unsolicited Start: 2024 End: 2024 [facility] Result Encounter Flora Rogelio DO Work Phone: [facility] Unsolicited Start: 11-14-2024 End: 11-14-2024 Bamboo flowsheet Flora Rogelio DO Work Phone: [facility] Start: 11-14-2024 End: 11-14-2024 Bamboo flowsheet Flora Rogelio DO Work Phone: [facility] Start: 11-14-2024 End: 11-14-2024 [facility] Result Encounter Flora Rogelio DO Work Phone: [facility] Unsolicited Start: 11-14-2024 End: 11-14-2024 flow sheet Flora Rogelio DO Work Phone: [facility] Comment on above: 39 weeks gestation o f ; Third trimester Start: 11-14-2024 End: 11-14-2024 ambulatory FLORA ROGELIO Not Available Start: 11-14-2024 End: 11-14-2024 Departed Referred Flora Rogelio DO Work Phone: [facility] Start: 11-07-2024 End: 11-07-2024 Bamboo flowsheet Flora [...] Date Procedure Procedure Detail Performing Clinician Start: 2024 ALL CBC WITH AUTO DIFF Flora Rogelio DO Work Phone: Start: 11-14-2024 [facility] CBC WITH PLATEL ET NO DIFFERENTIAL Flora Rogelio DO Work Phone: Start: 11-14-2024 Urnls dip stick/tabl et rgnt non-auto w/o micrscp Flora Rogelio DO Work Phone: Start: 10-31-2024 Urnls dip stick/tabl et rgnt [...] Routine [facility] [address] [place] [address] Flora Mercado, DO [address] [place] [address] [facility] Start: 11-07-2024 End: 11-07-2024 Patient encounter procedure 11/07/2024 10:10 AM EST Routine [facility] [address] [place] [id number] Flora Mercado, DO [address] [place] [address] [facility] Start: 10-31-2024 End: 10-31-2025 CULTURE, GROUP B STREP WITH SUSCEPTIBLITY CULTURE, GROUP B STREP WITH SUSCEPTIBLITY Lab Routine Third trimester Expected: 10/31/2024, Expires: 10/31/2025 [facility] Work Phone: Comment on above: Expected: 10/31/2024 , Expires: 10/31/2025 Start: 10-31-2024 End: 10-31-2024 Patient encounter procedure 10/31/2024 9:20 AM EST Routine [facility] [address] [place] [address] Flora Mercado, DO [address] [place] [address] [facility] Start: 10-23-2024 End: 10-23-2024 Patient encounter procedure 10/23/2024 9:00 AM EST Routine [facility] [address] [place] [address] Flora Mercado, DO [address] [place] [address] [facility] Start: 10-02-2024 End: 10-02-2024 Patient encounter procedure [facility] Comment on above: Arrived Start: 10-02-2024 End: 10-02-2024 Professional / ancillary services management 10/02/2024 8:30 AM EST Ancillary Procedure [facility] [address] [place] [address] [facility] Start: 09-11-2024 End: 09-11-2025 US for US OB SCAN FOR GROWTH Imaging Routine Excessive growth affecting management of , antepartum, single or unspecified fetus Expected: 09/11/2024 (Approximate), Expires: 09/11/2025 [facility] Healthcare Work Phone: Comment on above: Expected: 09/11/2024 (Approximate), Expires: 09/11/2025 Start: 09-11-2024 End: 09-11-2024 Patient encounter procedure 09/11/2024 8:50 AM EST Routine [facility] [address] [place] [address] Flora Mercado, DO [address] [facility] [address] [place], [place] [id number] [facility] Start: 08-07-2024 End: 08-07-2025 CBC panel - Blood by Automated count CBC Lab Routine Diabetes mellitus screening Expected: 08/07/2024 (Approximate), Expires: 08/07/2025 [facility] Healthcare Work Phone: Comment on above: Expected: 08/07/2024 (Approximate), Expires: 08/07/2025 Start: 08-07-2024 End: 08-07-2025 Measurement of glucose 1 hour after glucose challenge for glucose tolerance test Glucose tolerance, 1 hour Lab Routine Diabetes mellitus screening Expected: 08/07/2024 (Approximate), Expires: 08/07/2025 [facility] Comment on above: Expected: 08/07/2024 (Approximate), Expires: 08/07/2025 Start: 08-07-2024 End: 08-07-2024 Patient encounter procedure 08/07/2024 1:50 PM EDT Routine [facility] [address] [place] [address] Flora Mercado, DO [address] [place] [address] Arrived [facility] Comment on above: Arrived Start: 06-18-2024 Influenza vaccination Influenza Vacc ine (#1) [facility] Hepatitis C virus Ab [Presence] in Serum or Plasma by Immunoassay Hepatitis C antibody Lab Routine , unspecified gestational age Ordered: 08/07/2024 [facility] Comment on above: Ordered: 08/07/2024 Payers Date Payer Category Payer Self-pay 2024 Private Health Insurance [employer] [id number] 2024 Unknown [id number] 2001 Unknown [id number] [id number]. 1258 2001 Unknown [id number] 2.16.840.1.714460.3.579.2. 1258 2001 Unknown [id number] 2.16.840.1.939198.3.579.2. 1258 2001 Unknown [id number] 2.16.840.1.481633.3.579.2. 9 2001 Unknown [id number] 2.16.840.1.688405.3.579.2. 1258 2001 Unknown [id number] 2.16.840.1.722551.3.579.2. 9 2001 Unknown [id number] 2.16.840.1.099478.3.579.2. 1258 2001 Unknown [id number] 2.16.840.1.804521.3.579.2. 1258 2001 Unknown [id number] 2.16.840.1.360277.3.579.2. 1258 2001 Unknown [id number] 2.16.840.1.376177.3.579.2. 1259 2001 Unknown [id number] 2.16.840.1.155103.3.579.2. 1259 Medicaid [employer] [id number] Unknown [id number] [id number]. 531 Social History Date Type Detail Facility Start: [facility]-05-2024 [facility] Start: 04-05-2024 Tobacco use and exposure Smokeless tobacco non-user [facility] Start: 04-05-2024 End: 11-14-2024 Alcoholic beverage intake Ex-drinker (finding) [facility] Start: 04-05-2024 History of Social function [facility] Start: 04-05-2024 Tobacco use panel [facility] Start: 04-05-2024 Alcohol Comment Caffeine intake: Non e [facility] Start: 02-29-2024 [facility] Start: 2000 Sex assigned at Not on file [facility] Tobacco smoking stat [facility] Unknown if ever smoked [facility] Work Phone: Start: 11-17-2024 Sex Female (finding) [facility] Start: 2000 Sex Assigned At Female [facility] Goals Date Patient Goal Desired Activity /State Personal health goal Clinical Notes 08-07-2024 to 11-14-2024 Allie Castrejon LPN - 11/14/2024 9:20 AM Ciaran Castrejon LPN - 11/07/2024 10:10 AM JESICA [place] - 10/31/2024 9:20 AM Ciaran Castrejon LPN - 10/02/2024 9:00 AM EST Note Date & Type Note Facility 11-14-2024 History of Presen t illness Narrative Reason [...] History HISTORY PAST MEDICAL HISTORY SOCIAL HISTORY History reviewed. No pertinent past medical history. Social History Tobacco Use Smoking status: Never [...] nursing note reviewed. Exam conducted with a research instrumentation technician present. Vitals: Estimated body mass index is 34.81 kg/m as calculated from the following: Height as of 03/23/19: 5' 4 . Weight as of 03/23/19: 202 lb 12.8 oz. BP: Patient's last menstrual period was 01/18/2024. ASSESSMENT & PLAN ICD-10-CM 1. 39 weeks gestation of Z3A.39 POCT urinalysis dipstick manually resulted 2. Third trimester Z34.93 Return OB: Patient presents today for a routine obstetrics appointment. Patient is currently 39w0d . Patient states she is doing well but has complaints of being tired due to current . Pt blood pressure elevated today- pt being sent to [facility] for NST. Cervical check performed- dilated to 1- cervidil induction tonight at 1600. Patient has verbalizes frequent movement. labor precautions was discussed/given and patient was instructed to perform kick counts three times a day. Orders Placed This Encounter Procedures POCT urinalysis dipstick manually resulted Follow Up: Patient is to return to office in 1 week for routine OB appointment. Documented by Allie Castrejon LPN on behalf of: Flora Mercado DO documented in this encounter [facility] 11-07-2024 History of Presen t illness Narrative [...] nursing note reviewed. Exam conducted with a research instrumentation technician present. Vitals: Estimated body mass index [...] Flora Mercado DO documented in this encounter [facility] 10-31-2024 History of Presen t illness Narrative [...] Flora Mercado DO documented in this encounter [facility] 10-02-2024 History of Presen t illness Narrative [...] nursing note reviewed. Exam conducted with a research instrumentation technician present. Vitals: Estimated body mass index [...] week for routine OB appointment. Documented by Alile Castrejon LPN on behalf of: Flora Mercado DO documented in this encounter [facility] 09-11-2024 History of Presen t illness Narrative [...] nursing note reviewed. Exam conducted with a research instrumentation technician present. Vitals: Estimated body mass index [...] Flora Mercado DO documented in this encounter [facility] 08-07-2024 History of Presen t illness Narrative [...] nursing note reviewed. Exam conducted with a research instrumentation technician present. Vitals: Estimated body mass index [...] be sent to [facility] to be pre-certed and scheduled. Patient to return to clinic in 4 weeks for routine OB care appointment. Patient declined genetic testing previously in the . Patient has complaints of round ligament pain. Documented by Danielle Pineda LPN on behalf of: Flora Mercado DO documented in this encounter [facility] Evaluation note Diagnosis Second trimester state, incidental Diabetes mellitus screening Screening for diabetes mellitus , unspecified gestational age 24 weeks gestation of documented [facility]* Diagnosis 29 weeks gestation of Third trimester state, incidental Excessive growth affecting management of , antepartum, single or unspecified fetus [facility] Diagnosis 32 weeks gestation of Third trimester state, incidental [facility] Diagnosis 37 weeks gestation of Third trimester state, incidental [facility] Diagnosis 38 weeks gestation of Third trimester state, incidental [facility] Diagnosis 39 weeks gestation of Third trimester state, incidental [facility] noteNo assessment [facility] Work Phone: Summary Purpose Family History No Family History Records FoundNo Family History Records FoundNo Family History Records Found Advance Directives No Advanced Directives Records FoundNo Advanced Directives Records FoundNo Advanced Directives Records Found Additional Source Comments INFORMATION SOURCE (unrecogn ized section and content) DATE CREATED AUTHOR 03/19/2020 Remy Joshua [facility] DATE CREATED AUTHOR AUTHOR'S ORGANIZ ATION 11/15/2024 [facility] EPIC DATE CREATED AUTHOR AUTHOR'S ORGANIZ ATION 11/18/2024 [facility] Care Teams (unrecognized sec tion and content) Application Project Leader Relationship Specialty Start Date End Date Kang Alfaro MD [address] [place] [address] PCP - [facility] 02/23/23 Kang Alfaro MD [address] [place] [address] PCP - [facility] 04/17/24 Application Project Leader Relationship Specialty Start Date End Date Kang Alfaro MD [address] [place] [address] PCP - [facility] 02/23/23 Kang Alfaro MD [address] [place] [address] PCP - [facility] 04/17/24 Application Project Leader Relationship Specialty Start Date End Date Kang Alfaro MD [address] [place] [address] PCP - [facility] 02/23/23 Application Project Leader Relationship Specialty Start Date End Date Kang Alfaro MD [address] [place] [address] PCP - [facility] 02/23/23 Application Project Leader Relationship Specialty Start Date End Date Kang Alfaro MD [address] [place] [address] PCP - [facility] 02/23/23 Application Project Leader Relationship Specialty Start Date End Date Kang Alfaro MD [address] [place] [address] PCP - General Family Medicine 02/23/23 Application Project Leader Relationship Specialty Start Date End Date Kang Alfaro MD [address] [place] [address] PCP - General Family Medicine 02/23/23 Application Project Leader Relationship Specialty Start Date End Date Kang Alfaro MD [address] [place] [address] PCP - General Family Medicine 02/23/23 Application Project Leader Relationship Specialty Start Date End Date Kang Alfaro MD [address] [place] [address] PCP - General [facility] 02/23/23 Application Project Leader Relationship Specialty Start Date End Date Kang Alfaro MD [address] [place] [address] PCP - General [facility] 02/23/23 Team Status: Inactive Member Role Status Dates Flora Mercado DO Attending Provider Active Start : November 14, 2024 End: November 14, 2024 Reason for Visit (unrecogniz ed section and content) Reason Comments Routine Visit Goals (unrecognized section and content) Goals may be documented in a n alternate section FOR RECORDS PERTAINING TO PATIENTS WHO ARE [...] BE BASED ON THE PRIMARY CLINICAL RECORDS. [employer] provides no warranty or guarantee of the accuracy or completeness of information in this document.
[2024-11-21 10:07] VITALS: BP 129/84; PULSE 88; TEMP 36.9; O2SAT 98
--- NOTE | 2024-11-21 10:07 | PC.NURSE ---
Alejandro More and 6 day old Syl arrive for follow up and repeat bili draw. Argenis states is feeling well, recovering without problems. States few cramping episodes, light bleeding and milk is in. Currently placing to the breast for 5 minutes after she has syringe fed 1-1.5 oz of pumped milk. Started this as request per nurse and peds doctor due to elevated bili levels. Pt really wants to be at the breast. Discussed letting baby feed both breasts then supplement with .5-1 oz until jaundice is resolved. Argenis has milk and is able to pump 4-7 oz every 2-2.5 hours. States milk in refridge and freezer both. Discussed weaning from syringe supplements now that milk is in and infant latching well. No nipple damage noted per patient, and latches are deep. VSS and assessment WNL for Argenis. No concerns for self at this time. Baby Syl with VSS and assessment WNL. Bili serum blood draw completed and to lab. Parents report 5 wets and 5 yellow stools since midnight for . Baby settles self well and is alert, tracking mom's voice. Lab results return and bili level is 15.8 to day. Home ambulatory, planning to attend PCP appointment , given lab result for bili levels to take to PCP. Aware to call as needed and to attend [facility] as able.
== END 2024-11-21 10:11 | disposition home or self-care (01) ==
LOC: FBCO 08:11
PROVIDERS: Visit Provider Obstetrics & Gynecology
DX: Z39.1 Encounter for care and examination of lactating mother (principal)

== ENCOUNTER 2024-11-22 13:40 | Observation (INO) | payer OTHER, SELFPAY ==
[2024-11-22 14:25] LABS: Basophils Percent Auto 0.5 % (0.2-2.0); Eosinophils Absolute Auto 0.2 10^3/uL (0.0-0.7); Eosinophils Percent Auto 2.5 % (0.9-7.0); Hematocrit 37.2 % (36.0-48.0); Hemoglobin 12.1 g/dL (12.0-16.0); Immature Granulocytes Abs Auto 0.12 10^3/uL (0.00-0.03); Immature Granulocytes Pct Auto 1.6 % (0.0-0.5); Lymphocytes Absolute Auto 1.7 10^3/uL (1.2-3.8); Mean Corpuscular HGB Conc 32.5 g/dL (29.9-35.2); Mean Corpuscular Hemoglobin 27.1 pg (26.7-34.0); Mean Corpuscular Volume 83.2 fL (81.0-99.0); Mean Platelet Volume 10.1 fL (9.5-13.5); Monocytes Absolute Auto 0.4 10^3/uL (0.3-0.8); Monocytes Percent Auto 5.8 % (1.7-12.0); Neutrophils Absolute Auto 5.2 10^3/uL (1.4-6.5); Neutrophils Percent Auto 67.6 % (43.0-75.0); Platelet Count 365 10^3/uL (150-450); Red Blood Count 4.47 10^6/uL (4.20-5.40); Red Cell Distribution Width 13.5 % (11.0-15.0); White Blood Count 7.6 10^3/uL (4.0-11.0)
[2024-11-22 14:26] LABS: Anion Gap 14.2; BUN Creatinine Ratio 16.9; Calcium 8.7 mg/dL (8.5-10.1); Carbon Dioxide 25.9 mmol/L (21.0-32.0); Chloride 106 mmol/L (98-107); Estimated GFR (African America >60 (>=60 mL/min/1.73m^2); Estimated GFR (Non-African Ame >60 (>=60 mL/min/1.73m^2); Glucose 84 mg/dL (74-106); Potassium 4.1 mmol/L (3.5-5.1); Sodium 142 mmol/L (136-145)
[2024-11-22 14:31] VITALS: BP 153/90; PULSE 84
[2024-11-22 14:56] VITALS: BP 135/80; PULSE 71
--- NOTE | 2024-11-22 15:00 | CT_ITS ---
[address] [address] Patient Name: ARLINE MONSIVAIS MRN: [id number] date: 2000 Sex: F Assigned Patient Location: [facility] Current Patient Location: [facility] Accession/Order Number: [id number] Exam Date: 11/22/2024 15:05 Report Date: 11/22/2024 15:50 At the request of: FLORA PERDOMO Procedure: CT angio chest EXAMINATION: CT angio chest HISTORY: chest pressure , pain; vaginal delivery 7 days ago COMPARISON: No relevant comparison available. TECHNIQUE: Multi-planar CT images were created with IV contrast. Axial, Coronal, and Sagittal images. Dose reduction techniques were achieved by using automated exposure control and/or adjustment of mA and/or kV according to patient size and/or use of iterative reconstruction technique. 3-D reconstruction was performed on a separate workstation. FINDINGS: VASCULATURE: No pulmonary embolism or abnormal opacity. LUNGS: Mild groundglass opacity within lung bases favoring atelectasis. PLEURA: No mass, effusion, or pneumothorax. TONJA: No mass or adenopathy. MEDIASTINUM: No mass or adenopathy. CARDIAC: No enlargement, pericardial effusion, or pericardial thickening. AORTA: No aneurysm or dissection. CHEST WALL: No mass or axillary adenopathy. BONES: No bone lesion or fracture. LIMITED ABDOMEN: No suspicious findings. Limited images of the upper abdomen. OTHER: Negative. CT/CT angio chest IMPRESSION: 1. No pulmonary embolism or suspicious findings. 2. Minimal atelectasis. Electronically authenticated by: FRANCESCA MAYA Date: 11/22/2024 15:50
--- NOTE | 2024-11-22 15:06 | PC.NURSE ---
1430- Pt. assessment completed, denies SKINNER, blurred vision, or chest pain currently . DTRs 1 plus upper and 2+ lower
[2024-11-22 15:29] LABS: Alanine Aminotransferase 28 U/L (14-59); Aspartate Amino Transferase 15 U/L (15-37); Lactate Dehydrogenase 214 U/L (81-234); Uric Acid 5.3 mg/dL (2.6-6.0)
[2024-11-22 16:01] VITALS: BP 147/88; PULSE 88
[2024-11-22] MEDS: LABETALOL HCL 100 MG TABLET 200 MG PO (17:25)
== END 2024-11-22 17:35 | disposition home or self-care (01) ==
LOC: FBC 13:44
PROVIDERS: Admitting Provider Obstetrics & Gynecology; Visit Provider Obstetrics & Gynecology
DX: O90.89 Other complications of the puerperium, not elsewhere classified (principal); R42 Dizziness and giddiness; R07.89 Other chest pain
CPT/HCPCS: 36415; 71275; 80048; 83615; 84450; 84460; 84550; 85025; G0378; G0379; Q9967